=== PATIENT | female | born 1940 | race Caucasian/White ===

== ENCOUNTER 2023-04-21 13:29 | Inpatient (IN) | payer MEDICARE, SELFPAY ==
[2023-04-21 13:45] VITALS: BP 168/78; PULSE 89; RESP 18; TEMP 36.9; O2SAT 94
--- OUTSIDE RECORDS SUMMARY | 2023-04-21 13:45 | XMS RPT_ITS | CCD ---
Author Name Unknown Address [address] [place] [address] Organization [facility] Care Team Providers Care Import/Export Freight Forwarder Name Role Phone RADHA SANFORD PA-C Primary Care Physician [phone] VACCARIELLO, EASTON Consulting Unavailable CONOR TILLMAN MD Admitting Unavailable CONOR TILLMAN MD Attending Unavailable CONOR TILLMAN MD Primary Care Unavailable PROVIDER, UNKNOWN Consulting Unavailable PROVIDER, UNKNOWN Consulting Unavailable PROVIDER, UNKNOWN Consulting Unavailable SAMMIE ALLEN MD Primary Care Unavailable SAMMIE ALLEN MD Attending Unavailable RADHA SANFORD Consulting Unavailable SAMMIE ALLEN MD Admitting Unavailable RADHA SANFORD Referring Unavailable PROVIDER, UNKNOWN Consulting Unavailable VACCARIELLO, EASTON Referring Unavailable VACCARIELLO, EASTON Consulting Unavailable SAL CAVAZOS MD Admitting Unavailable SAL CAVAZOS MD Attending Unavailable SAL CAVAZOS MD Primary Care Unavailable PROVIDER, UNKNOWN Consulting Unavailable PROVIDER, UNKNOWN Consulting Unavailable PROVIDER, UNKNOWN Consulting Unavailable VACCARIELLO, EASTON Consulting Unavailable GURJIT YOUNG DO Admitting Unavailable GURJIT YOUNG DO Attending Unavailable GURJIT YOUNG DO Primary Care Unavailable PROVIDER, UNKNOWN Consulting Unavailable PROVIDER, UNKNOWN Consulting Unavailable PROVIDER, UNKNOWN Consulting Unavailable VACCARIELLO, EASTON Consulting Unavailable AARON ZAMAN MD Primary Care Unavailable AARON ZAMAN MD Attending Unavailable AARON ZAMAN MD Admitting Unavailable PROVIDER, UNKNOWN Consulting Unavailable PROVIDER, UNKNOWN Consulting Unavailable PROVIDER, UNKNOWN Consulting Unavailable CONOR TILLMAN MD Admitting Unavailable VACCARIELLO, EASTON Consulting Unavailable CONOR TILLMAN MD Attending Unavailable CONOR TILLMAN MD Primary Care Unavailable PROVIDER, UNKNOWN Consulting Unavailable PROVIDER, UNKNOWN Consulting Unavailable PROVIDER, UNKNOWN Consulting Unavailable CIARA COLLADO Attending Unavailable LARY GARCIA Admitting Unavailable SYSTEM, PROVIDER NOT IN Referring Unavaila ble CONSULT, SURGERY - ORTHOPAEDICS Consulting Unavailable AUSTYN WARD, DR AARON Avelar Attending [facility] PA-C, [facility] George WARD, DR AARON Avelar Attending [facility] veto [facility]C, [facility] veto FRYE SPIRITUAL MINISTER-LABOR RELATIONS WORKER, CORNELL Hurley Consulting Padmini AZMAN MD, DR AARON Avelar Admitting Parth Vazquez MD, DR AARON Avelar Attending [facility] veto SANFORD PA-C, [facility] le Allergies Allergy Classification Reported Allergen(s) Allergy Type Date of Onset Reaction(s) Facility (2 sources) Sulfamethoxazole; Translations: [sulfamethoxazole] Drug Allergy [facility] (1 source) Acetaminophen / HYDROcodone Drug Allergy [facility] (1 source) HYDROcodone Drug Allergy [facility] (1 source) Sulfonamides (Antibiotic) Drug allergy (disorder) [facility] Medications Current Medications Medication Drug Class(es) Dates Sig (Normalized) Sig (Original) acetaminophen 1000 mg oral tablet (1 source) Start: 04-04-2023 take 1 tablet by mouth once daily Tylenol Dose : 1,000 mg = 2 tab(s), Oral, TID, not to exceed 3000 mg/day, 0 Refill(s) Start Date: 04/04/23 Status: Ordered alendronic acid 70 mg oral tablet (2 sources) Bisphosphonate Start: 03-08-2023 alendronate 70 mg oral tablet Dose : 70 mg = 1 tab(s), Oral, qWeek, 0 Refill(s) Start Date: 03/08/23 Status: Ordered Calcium Plus Vitamin D3 (2 sources) Start: 03-08-2023 take 1 tablet by mouth once daily Calcium Plus Vitamin D3 1 TAB, Oral, qDay, 0 Refill(s) Start Date: 03/08/23 Status: Ordered docusate sodium 50 mg / sennosides, correction 8.6 mg oral tablet (1 source) Start: 04-04-2023 End: 04-07-2023 take 1 tablet by mouth twice daily Senokot S 50 mg-8.6 mg oral tablet Dose = 2 tab(s), Oral, BID, Take until first bowel movement, then as needed, X 3 day(s), # 12 tab(s), 0 Refill(s), Pharmacy: [facility]/pharmacy #[id number], 157.2, cm, 04/03/23 16:22:00 EST, Height, kg, 04/03/23 16:22:00 EST, Dosing Weight Start Date: 04/04/23 Stop Date: 04/07/23 Status: Ordered doxycycline monohydrate 100 mg oral capsule (1 source) Tetracycline-class Drug Start: 04-04-2023 End: 04-18-2023 doxycycline monohydrate 100 mg oral capsule Dose : 100 mg = 1 cap(s), Oral, q12h, X 14 day(s), # 28 cap(s), 0 Refill(s), 04/18/23 7:56:00 AM EST, Pharmacy: [facility]/pharmacy #[id number], 157.2, cm, 04/03/23 16:22:00 EST, Height, 68, kg, 04/03/23 16:22:00 EST, Dosing Weight Start Date: 04/04/23 Stop Date: 04/18/23 Status: Ordered Multivitamin preparation (2 sources) Start: 03-08-2023 take 1 tablet by mouth once daily Multivitamin Dose = 1 tab(s), Oral, Daily, 0 Refill(s) Start Date: 03/08/23 Status: Ordered rivaroxaban 10 mg oral tablet (1 source) Factor Xa Inhibitor Start: 04-04-2023 End: 04-16-2023 Xarelto 10 mg oral tablet Dose : 10 mg = 1 tab(s), Oral, qDay, Take for 2 weeks postoperatively for DVT prophylaxis, # 12 tab(s), 0 Refill(s), Pharmacy: [facility]/pharmacy #[id number], 157.2, cm, 04/03/23 16:22:00 EST, Height, 68, kg, 04/03/23 16:22:00 EST, Dosing Weight Start Date: 04/04/23 Stop Date: 04/16/23 Status: Ordered traMADol hydrochloride 50 mg oral tablet (1 source) Opioid Agonist Start: 04-04-2023 End: 04-11-2023 take 1 tablet by mouth every six hours as needed for pain traMADol 50 mg oral tablet See Instructions, PRN as needed for pain, 1 tab(s) Oral q6hr as needed for pain, # 12 tab(s), 0 Refill(s), 04/11/23 7:58:00 AM EST, Pharmacy: [facility]/pharmacy #[id number], Post-op pain, 157.2, cm, 04/03/23 16:22:00 EST, Height, 68, kg, 04/03/23 16:22:00 EST, Dosing Weight Start Date: 04/04/23 Stop Date: 04/11/23 Status: Ordered Problems Active Problems Problem Classification Problem Date Documented Date Episodic/Chronic Deficiency and other anemia (1 source) Anemia, unspecified; Translations: [Anemia, unspecified] Onset: 04-09-2023 Episodic Fracture of neck of femur (hip) (2 sources) Fracture of unspecified part of neck of right femur, initial encounter for closed fracture; Translations: [Fracture of unspecified part of neck of right femur, initial encounter for closed fracture] Onset: 04-12-2023 Episodic Osteoarthritis (1 source) Unilateral primary osteoarthritis, right knee; Translations: [Unilateral primary osteoarthritis, right knee] Onset: 04-09-2023 Chronic Osteoporosis (3 sources) Primary osteoporosis; Translations: [Age-related osteoporosis without current pathological fracture] Onset: 04-03-2023 Chronic Other nervous system disorders (1 source) Postoperative pain ; Translations: [Other acute postprocedural pain] Onset: 04-04-2023 Episodic Other non-traumatic joint disorders (2 sources) Pain in right hip; Translations: [Pain in right hip] Onset: 04-09-2023 Episodic Pathological fracture (1 source) Pathological fracture, right femur, initial encounter for fracture; Translations: [Pathological fracture, right femur, initial encounter for fracture] Onset: 04-09-2023 Episodic Residual codes; unclassified (1 source) Do not resuscitate; Translations: [Do not resuscitate] Onset: 04-09-2023 Episodic Past or Other Problems Problem Classification Problem Date Documented Date Episodic/Chronic Acute posthemorrhagic anemia (3 sources) Acute posthemorrhagic anemia; Translations: [Acute posthemorrhagic anemia] Onset: 06-13-2022 Episodic Malaise and fatigue (1 source) Weakness; Translations: [Weakness] Onset: 06-13-2022 Episodic Other connective tissue disease (1 source) Muscle weakness (generalized); Translations: [Muscle weakness (generalized)] Onset: 06-13-2022 Episodic Results Test Name Value Interpretation Reference Range Facil ity Vital Signs Date Time Vital Sign Value Performing Clinician Rayna nayak 04-04-2023 11:33-[address] AAORN ZAMAN MD [facility] 04-04-2023 11:33-[address] AARON Edward [facility] 04-04-2023 11:33-0500 Body temperature 97.52 [degF] DR AARON ZAMAN MD [facility] 04-04-2023 11:33-0500 Diastolic Blood Pressure Non-Invasive 76 mm[Hg] DR AARON ZAMAN MD [facility] 04-04-2023 11:33-0500 Heart rate 83 /min DR AARON ZAMAN MD [facility] 04-04-2023 11:33-0500 Reason For Taking VItal Signs DR AARON ZAMAN MD [facility] 04-04-2023 11:33-0500 Respiratory rate 16 /min DR AARON ZAMAN MD [facility] 04-04-2023 11:33-0500 Systolic Blood Pressure Non-Invasive 113 mm[Hg] DR AARON ZAMAN MD [facility] 04-04-2023 07:46-[address] AARON ZAMAN MD [facility] 04-04-2023 07:46-[address] AARON Edward [facility] 04-04-2023 07:46-0500 Body temperature 97.7 [degF] DR AARON ZAMAN MD [facility] 04-04-2023 07:46-0500 Diastolic Blood Pressure Non-Invasive 80 mm[Hg] DR AARON ZAMAN MD [facility] 04-04-2023 07:46-0500 Heart rate 78 /min DR AARON ZAMAN MD [facility] 04-04-2023 07:46-0500 Reason For Taking VItal Signs DR AARON ZAMAN MD [facility] 04-04-2023 07:46-0500 Respiratory rate 16 /min DR AARON ZAMAN MD [facility] 04-04-2023 07:46-0500 Systolic Blood Pressure Non-Invasive 142 mm[Hg] DR AARON ZAMAN MD [facility] 04-04-2023 04:42-0500 Body temperature 98.06 [degF] DR AARON ZAMAN MD [facility] 04-04-2023 04:42-0500 Diastolic Blood Pressure Non-Invasive 64 mm[Hg] DR AARON ZAMAN MD [facility] 04-04-2023 04:42-0500 Heart rate 71 /min DR AARON ZAMAN MD [facility] 04-04-2023 04:42-0500 Reason For Taking VItal Signs DR AARON ZAMAN MD [facility] 04-04-2023 04:42-0500 Respiratory rate 18 /min DR AARON ZAMAN MD [facility] 04-04-2023 04:42-0500 Systolic Blood Pressure Non-Invasive 140 mm[Hg] DR AARON ZAMAN MD [facility] 04-04-2023 00:18-0500 Heart rate 70 /min DR AARON ZAMAN MD [facility] 04-03-2023 20:30-0500 Heart rate 81 /min DR AARON ZAMAN MD [facility] 04-03-2023 16:23-0500 Heart rate 72 /min DR AARON ZAMAN MD [facility] 04-03-2023 16:22-0500 Body height 157.[address] AARON ZAMAN MD [facility] 04-03-2023 16:22-0500 Body weight [address] AARON ZAMAN MD [facility] 04-03-2023 16:22-0500 Body weight 27.52 kg/m2 DR AARON ZAMAN MD [facility] 04-03-2023 15:55-0500 Heart rate 86 /min DR AARON ZAMAN MD [facility] 04-03-2023 15:00-0500 Body temperature 97.7 [degF] DR AARON ZAMAN MD [facility] 04-03-2023 14:50-0500 Respiratory Rate - Anes 20 br/min DR AARON ZAMAN MD [facility] 04-03-2023 14:45-0500 Body temperature 96.8 [degF] DR AARON ZAMAN MD [facility] 04-03-2023 14:45-0500 Respiratory Rate - Anes 21 br/min DR AARON ZAMAN MD [facility] 04-03-2023 14:40-0500 Respiratory Rate - Anes 36 br/min DR AARON ZAMAN MD [facility] 04-03-2023 14:30-0500 Body temperature 96.8 [degF] DR AARON ZAMAN MD [facility] 04-03-2023 14:15-0500 Body temperature 96.8 [degF] DR AARON ZAMAN MD [facility] 04-03-2023 10:27-0500 Body temperature 98.24 [degF] DR AARON ZAMAN MD [facility] 04-03-2023 10:27-0500 Heart rate 98 /min DR AARON ZAMAN MD [facility] 04-03-2023 10:23-0500 Body height 157.[address] AARON ZAMAN MD [facility] 04-03-2023 10:23-0500 Body weight [address] AARON ZAMAN MD [facility] 04-03-2023 10:23-0500 Body weight 27.52 kg/m2 DR AARON ZAMAN MD [facility] 03-08-2023 11:06-0500 Body height 157.[address] AARON ZAMAN MD [facility] 03-08-2023 11:06-0500 Body weight 72.[address] AARON ZAMAN MD [facility] Encounters Encounter Date Encounter Type Care Provider Facility Start: 04-12-2023 Evaluation and manag ement of inpatient CIARA COLLADO Facility:[facility] Start: 04-09-2023 End: 04-12-2023 ambulatory SAMMIE WARD [facility] Start: 04-03-2023 End: 04-04-2023 Evaluation and management of inpatient CORNELL FRYE SPIRITUAL MINISTER-LABOR RELATIONS WORKER Facility:[facility] Start: 04-03-2023 End: 04-04-2023 Evaluation and management of inpatient DR AARON ZAMAN MD [facility] Start: 03-08-2023 End: 03-09-[address] AARON ZAMAN MD Facility:[facility] Start: 03-08-2023 End: 03-08-[address] AARON ZAMAN MD [facility] Start: 02-12-2023 ambulatory [facility] Start: 01-22-2023 End: 01-22-2023 ambulatory [facility] Start: 12-26-2022 End: 12-26-2022 ambulatory [facility] Start: 06-13-2022 End: 02-09-2023 ambulatory CONOR WARD [facility] Start: 06-04-2022 End: 06-08-2022 Evaluation and management of inpatient [facility] Procedures Date Procedure Procedure Detail Performing Clinician Start: 04-15-2023 Antibody screen CIARA COLLADO Immunizations Immunization Date Immunization Notes Care Provider Fa cili 03-22-2021 SARS-CoV-2 mRNA (tozinameran) vaccine DR AARON ZAMAN MD [facility] 03-01-2021 SARS-CoV-2 mRNA (tozinameran) vaccine DR AARON ZAMAN MD [facility] Payers Date Payer Category Payer Medicare [id number] 2021 Medicare [id number] 1940 Unknown [id number] [id number] [id number] 1940 Unknown [id number] 2.16.8 [id number] 1940 Unknown [id number] 2.16.8 [id number] 1940 Unknown [id number] 2.16.8 [id number] 1940 Unknown [id number] 2.16.8 [id number] 1940 Unknown [id number] 2.16.84 [id number] 1940 Unknown [id number] [id number]. [id number] 1940 Unknown [id number] 2.16.8 [id number] 1940 Unknown [id number] 2.16.8 [id number] 1940 Unknown [id number] 2.16.8 [id number] Unknown Social History Date Type Detail Facility Start: 03-08-2023 Tobacco smoking status Never s moked tobacco (finding) [facility] Sex Assigned At Female [facility] Functional Status Date Assessment Result Facility 04-04-2023 Functional Status Supervised 1 [facility] 04-04-2023 Functional Status bilateral knee high applied/on [facility] 04-04-2023 Functional Status Single level home [facility] 04-03-2023 Functional Status Foam dressing [facility] 04-03-2023 Functional Status [facility] 04-03-2023 Functional Status [facility] 04-03-2023 Functional Status [facility] 04-03-2023 Functional Status Maintained [facility] 03-08-2023 Functional Status Sensory Deficits None A [facility] Mental Status Date Assessment Result Facility 04-04-2023 Mental Status Oriented x 4 [facility] 04-03-2023 Mental Status [facility] 04-03-2023 Mental Status [facility] Clinical Notes 06-05-2022 to 04-10-2023 Note Date & Type Note Facility 04-10-2023 Note . MICRO - Microbiology PROCEDURE: Culture Tissue [*1] SOURCE: Tissue BODY SITE: Hip R COLLECTED DATE/TIME: 04/03/2023 14:00 EST RECEIVED DATE/TIME: 04/03/2023 18:47 EST START DATE/TIME: 04/03/2023 18:47 EST FREE TEXT SOURCE: 1. [employer] HIP FINAL REPORTS Final Report [] Verified Date/Time/Personnel: 04/10/2023 08:21 EST No aerobes or anaerobes isolated at 7 days. PRELIMINARY REPORTS Preliminary Report [] Verified Date/Time/Personnel: 04/04/2023 11:59 EST No growth to date STAINS GS [] Verified Date/Time/Personnel: 04/03/2023 19:22 EST 2+ Red Blood Cells 2+ White Blood Cells No organisms seen. Performing Locations *1: This test was performed at: [facility], [address] [place] [address], [facility] , [facility] ([place]) 04-06-2023 Note . MICRO - Microbiology PROCEDURE: Fungal Culture with Stain if Ind [*1] SOURCE: Tissue BODY SITE: COLLECTED DATE/TIME: 04/03/2023 14:00 EST RECEIVED DATE/TIME: 04/03/2023 18:47 EST START DATE/TIME: 04/03/2023 18:47 EST FREE TEXT SOURCE: 1. [employer] PRELIMINARY REPORTS Preliminary Report [] Verified Date/Time/Personnel: 04/06/2023 07:48 EST No fungus isolated to date. Final report to follow. STAINS FUNSM [] Verified Date/Time/Personnel: 04/04/2023 11:15 EST No fungal elements observed by calcofluor white stain. Performing Locations *1: This test was performed at: [address], [facility] , [facility] ([place]) 04-04-2023 Note . MICRO - Microbiology PROCEDURE: Acid Fast Bacilli Culture w Stain if Ind [*1] SOURCE: Tissue BODY SITE: Hip R COLLECTED DATE/TIME: 04/03/2023 14:00 EST RECEIVED DATE/TIME: 04/03/2023 18:47 EST START DATE/TIME: 04/03/2023 18:47 EST FREE TEXT SOURCE: 1. [employer] HIP STAINS AFS [] Verified Date/Time/Personnel: 04/04/2023 11:15 EST Acid Fast Smear from Concentrated Specimen: Negative Performing Locations *1: This test was performed at: [address], [facility] , [facility] ([place]) 04-04-2023 Note Discharge Instructions Thank you for allowing [facility] to assist you with your healthcare needs. The following is important discharge information regarding your hospital visit. Your Care Team MD Arthur Mckinney PA-C Lisa Kapper, ÁNGEL-LABOR RELATIONS WORKER Your Diagnosis Osteoporosis Post-op pain What to do next Follow Up Appointments Follow Up with ARTHUR HARDING PA-C, Orthopedic When 04/16/2023 03:30 PM EST Why: This is your post-op appointment. Follow-up as scheduled. Where: [facility] [address] [place] [id number]- Allergies sulfamethoxazole Medications Please ask your primary doctor or pharmacist before taking any other medication not listed, including over the counter drugs, herbal medications, vitamins and or supplements as they may interact with your home medications. What How Much When Why Instructions Last Dose New acetaminophen (Tylenol) 1,000 Milligram by mouth Three (3) times a day not to exceed 3000 mg/ day 04/04/23 12:10pm New docusate-senna (Senokot S 50 mg-8.6 mg oral tablet) 2 tab(s) by mouth Two (2) times a day Duration: 3 Days Take until first bowel movement, then as needed Pickup at [facility]/pharmacy #[id number] 04/03/23 10:36pm New doxycycline (doxycycline monohydrate 100 mg oral capsule) 1 cap by mouth Every 12 hours Duration: 14 Days Pickup at [facility]/pharmacy #[id number] 04/04/23 12:10pm New rivaroxaban (Xarelto 10 mg oral tablet) 1 tab(s) by mouth Once a day Duration: 12 Days Take for 2 weeks postoperatively for DVT prophylaxis Pickup at [facility]/pharmacy #[id number] 04/04/23 8:38am New traMADol (traMADol 50 mg oral tablet) See instructions Post-op pain 1 tab(s) Oral q6hr as needed for pain Pickup at [facility]/pharmacy #[id number] Unchanged alendronate (alendronate 70 mg oral tablet) 1 tab(s) by mouth Every week Unchanged calcium-vitamin D (Calcium Plus Vitamin D3) 1 TAB by mouth Once a day Unchanged multivitamin (Multivitamin) 1 tab(s) by mouth Every day Pharmacy Information [facility]/pharmacy #[id number]: [address], [place] [id number] [phone] Please take this list to your next doctor s visit. Bring all medications you take, including over the counter medications, herbals and other supplements with you to your doctor s visit. Patients and families are reminded to discard old lists and to update any records with all medication providers or retail pharmacies. Medication Leaflets doxycycline (oral/injection) (DOX i NINOSKA bynum) Acticlate, Adoxa, Alodox, Avidoxy, Doryx, Doryx MPC, Lymepak, Mondoxyne NL, Monodox, Morgidox, Morgidox 1x090sx, Morgidox 1u718tg, Okebo, Oracea, Targadox, Vibramycin, Vibramycin Monohydrate What is the most important information I should know about doxycycline? You should not take this medicine if you are allergic to any tetracycline antibiotic. Children younger than 8 years old should use doxycycline only in cases of severe or life-threatening conditions. This medicine can cause permanent yellowing or graying of the teeth in children Using doxycycline during could harm the unborn baby or cause permanent tooth discoloration later in the baby's life. What is doxycycline? Doxycycline is a tetracycline antibiotic that Doxycycline is used to treat many different bacterial infections, such as acne, urinary tract infections, intestinal infections, eye infections, gonorrhea, chlamydia, periodontitis (gum disease), and others. Doxycycline is also used to treat blemishes, bumps, and acne-like lesions caused by rosacea. Doxycycline will not treat facial redness caused by rosacea. Some forms of doxycycline are used to prevent malaria, to treat anthrax, or to treat infections caused by mites, ticks, or lice. Doxycycline may also be used for purposes not listed in this medication guide. What should I discuss with my healthcare provider before taking doxycycline? You should not take this medicine if you are allergic to doxycycline or other tetracycline antibiotics such as demeclocycline, minocycline, tetracycline, or tigecycline. Tell your doctor if you have ever had: liver disease; kidney disease; asthma or sulfite allergy; increased pressure inside your skull; or if you also take isotretinoin, seizure medicine, or a blood thinner such as warfarin (Coumadin). If you are using doxycycline to treat gonorrhea, your doctor may test you to make sure you do not also have syphilis, another sexually transmitted disease. Taking this medicine during may affect tooth and bone development in the unborn baby. Taking doxycycline during the last half of can cause permanent tooth discoloration later in the baby's life. Tell your doctor if you are or if you become . Doxycycline can make control pills less effective. Ask your doctor about using a non-hormonal control (condom, diaphragm with spermicide) to prevent . Doxycycline can pass into breast milk and may affect bone and tooth development in a nursing . Do not breastfeed while you are taking doxycycline. Doxycycline can cause permanent yellowing or graying of the teeth in children younger than 8 years old. Children should use doxycycline only in cases of severe or life-threatening conditions such as anthrax or [place] spotted fever. The benefit of treating a serious condition may outweigh any risks to the child's tooth development. How should I take doxycycline? Follow all directions on your prescription label and read all medication guides or instruction sheets. Use the medicine exactly as directed. Take doxycycline with a full glass of water. Drink plenty of liquids while you are taking doxycycline. Read and carefully follow any Instructions for Use provided with your medicine. Ask your doctor or pharmacist if you do not understand these instructions. Most brands of doxycyline may be taken with food or milk if the medicine upsets your stomach. Different brands of doxycycline may have different instructions about taking them with or without food. Take Oracea on an empty stomach, at least 1 hour before or 2 hours after a meal. You may need to split a doxycycline tablet to get the correct dose. Follow your doctor's instructions. Swallow a delayed-release capsule or tablet whole. Do not crush, chew, break, or open it. Measure liquid medicine with the dosing syringe provided, or with a special dose-measuring spoon or medicine cup. If you do not have a dose-measuring device, ask your pharmacist for one. If you take doxycycline to prevent malaria: Start taking the medicine 1 or 2 days before entering an area where malaria is common. Continue taking the medicine every day during your stay and for at least 4 weeks after you leave the area. Doxycycline is usually given by injection only if you are unable to take the medicine by mouth. A healthcare provider will give you this injection as an infusion into a vein. Use this medicine for the full prescribed length of time, even if your symptoms quickly improve. Skipping doses can increase your risk of infection that is resistant to medication. Doxycycline will not treat a viral infection such as the flu or a common cold. Store at room temperature away from moisture, heat, and light. Throw away any unused medicine after the expiration date on the label has passed. Using doxycycline can cause damage to your kidneys. What happens if I miss a dose? Take the medicine as soon as you can, but skip the missed dose if it is almost time for your next dose. Do not take two doses at one time. What happens if I overdose? Seek emergency medical attention or call the Poison Help line at . What should I avoid while taking doxycycline? Do not take iron supplements, multivitamins, calcium supplements, antacids, or laxatives within 2 hours before or after taking doxycycline. Avoid taking any other antibiotics with doxycycline unless your doctor has told you to. Doxycycline could make you sunburn more easily. Avoid sunlight or tanning beds. Wear protective clothing and use sunscreen (SPF 30 or higher) when you are outdoors. Antibiotic medicines can cause diarrhea, which may be a sign of a new infection. If you have diarrhea that is watery or bloody, call your doctor. Do not use anti-diarrhea medicine unless your doctor tells you to. What are the possible side effects of doxycycline? Get emergency medical help if you have signs of an allergic reaction (hives, difficult breathing, swelling in your face or throat) or a severe skin reaction (fever, sore throat, burning in your eyes, skin pain, red or purple skin rash that spreads and causes blistering and peeling). Seek medical treatment if you have a serious drug reaction that can affect many parts of your body. Symptoms may include: skin rash, fever, swollen glands, flu-like symptoms, muscle aches, severe weakness, unusual bruising, or yellowing of your skin or eyes. This reaction may occur several weeks after you began using doxycycline. Call your doctor at once if you have: severe stomach pain, diarrhea that is watery or bloody; throat irritation, trouble swallowing; chest pain, irregular heart rhythm, feeling short of breath; little or no urination; low white blood cell counts--fever, chills, swollen glands, body aches, weakness, pale skin, easy bruising or bleeding; increased pressure inside the skull--severe headaches, ringing in your ears, dizziness, nausea, vision problems, pain behind your eyes; or signs of liver or pancreas problems--loss of appetite, upper stomach pain (that may spread to your back), tiredness, nausea or vomiting, fast heart rate, dark urine, jaundice (yellowing of the skin or eyes). Common side effects may include: nausea, vomiting, upset stomach, loss of appetite; mild diarrhea; skin rash or itching; darkened skin color; or vaginal itching or discharge. This is not a complete list of side effects and others may occur. Call your doctor for medical advice about side effects. You may report side effects to FDA at 4-396-ION-0348. What other drugs will affect doxycycline? Sometimes it is not safe to use certain medications at the same time. Some drugs can affect your blood levels of other drugs you take, which may increase side effects or make the medications less effective. Other drugs may affect doxycycline, including prescription and jdoy-ddp-yxorjst medicines, vitamins, and herbal products. Tell your doctor about all your current medicines and any medicine you start or stop using. Where can I get more information? Your pharmacist can provide more information about doxycycline. Remember, keep this and all other medicines out of the reach of children, never share your medicines with others, and use this medication only for the indication prescribed. Every effort has been made to ensure that the information provided by [employer]. [employer]') is accurate, up-to-date, and complete, but no guarantee is made to that effect. Drug information contained herein may be time sensitive. [employer] information has been compiled for use by healthcare practitioners and consumers in the [place] and therefore [employer] does not warrant that uses outside of the [place] are appropriate, unless specifically indicated otherwise. [employer] drug information does not endorse drugs, diagnose patients or recommend therapy. [employer] drug information is an informational resource designed to assist licensed healthcare practitioners in caring for their patients and/or to serve consumers viewing this service as a supplement to, and not a substitute for, the expertise, skill, knowledge and judgment of healthcare practitioners. The absence of a warning for a given drug or drug combination in no way should be construed to indicate that the drug or drug combination is safe, effective or appropriate for any given patient. [employer] does not assume any responsibility for any aspect of healthcare administered with the aid of information [employer] provides. The information contained herein is not intended to cover all possible uses, directions, precautions, warnings, drug interactions, allergic reactions, or adverse effects. If you have questions about the drugs you are taking, check with your doctor, nurse or pharmacist. Copyright 8603-1159 [employer]. Version: 25.. Revision Date: 01/03/2023. rivaroxaban (ONELIA a CASEY a ban) Xarelto, Xarelto Starter Pack What is the most important information I should know about rivaroxaban? Do not stop taking rivaroxaban without your doctor's advice. Stopping it suddenly can increase your risk of blood clots or stroke. Some drugs can increase your risk of bleeding when used with rivaroxaban. Tell your doctor about all other medicines you use. Call your doctor at once if you or your child have signs of bleeding such as: headaches, feeling very weak or dizzy, bleeding gums, nosebleeds, heavy menstrual periods or abnormal vaginal bleeding, blood in your urine, bloody or tarry stools, coughing up blood, vomit that looks like coffee grounds or any bleeding that will not stop. Rivaroxaban can cause a very serious blood clot around your spinal cord if you undergo a spinal tap or receive spinal anesthesia (epidural). Tell any doctor who treats you that you are taking rivaroxaban. What is rivaroxaban? Rivaroxaban is used to treat or prevent blood clots (venous thromboembolism, or VTE). Blood clots can occur in the legs (deep vein thrombosis, DVT) or the lungs (pulmonary embolism, PE). Rivaroxaban is sometimes used to lower your risk of a blood clot coming back after you have received treatment for blood clots for at least 6 months in adults, and at least 5 days in children from to less than 18 years of age. Rivaroxaban is also given together with aspirin to lower the risk of stroke, heart attack, or other serious heart and blood circulation problems in adults with coronary artery disease (clogged arteries) or peripheral artery disease (reduced blood flow to the legs), including adults who recently had a procedure to improve blood flow to the legs. Rivaroxaban can also be used to prevent blood clots in adults that are not able to move as normal during and after a hospital stay or after a hip or knee replacement surgery. Rivaroxaban can be used to prevent blood clots in children 2 years and older that have undergone surgery for a heart disease present at . Rivaroxaban is also used to lower the risk of stroke and blood clots in adults with atrial fibrillation (a heart rhythm disorder). Rivaroxaban may also be used for purposes not listed in this medication guide. What should I discuss with my healthcare provider before taking rivaroxaban? You should not use rivaroxaban if you are allergic to it, or if you have active or uncontrolled bleeding. Rivaroxaban can make it easier for you to bleed, even from a minor injury. Call your doctor if you have bleeding that will not stop. Rivaroxaban can cause a serious blood clot if you undergo a procedure such as a spinal tap or receive spinal anesthesia (epidural). This type of blood clot could cause permanent or long-term paralysis. Tell your doctor if you have or ever had: a history of problems with your spine or a spinal surgery; a history of difficult or repeated spinal taps; a thin tube (catheter) placed in your back to give you certain medicine; bleeding problems; an artificial heart valve; antiphospholipid syndrome, an immune system disorder that increases the risk of blood clots; taken NSAIDs (nonsteroidal anti-inflammatory drugs)--aspirin, ibuprofen (Advil, Motrin), naproxen (Aleve), and other medicines that prevent blood from clotting; or liver or kidney disease. Taking rivaroxaban during may cause bleeding in the mother or the unborn baby. Tell your doctor if you are or plan to become . It may not be safe to breastfeed a baby while you are using this medicine. Ask your doctor about the risks. How should I take rivaroxaban? Follow all directions on your prescription label and read all medication guides or instruction sheets. Your doctor may occasionally change your dose. Use the medicine exactly as directed. Do not change your dose or stop taking this medication without your doctor's advice. Stopping suddenly can increase your risk of blood clots or stroke. Tell any doctor who treats you that you are using rivaroxaban. If you need surgery or dental work, tell the surgeon or dentist ahead of time that you are using this medication. If you need anesthesia for a medical procedure or surgery, you may need to stop using rivaroxaban for a short time. For some conditions, rivaroxaban should be taken with food. Whether you take the medicine with or without food may also depend on the tablet strength you take. Follow your doctor's dosing instructions very carefully. If you cannot swallow a rivaroxaban tablet whole, crush it and mix the medicine with a small amount of applesauce. Swallow the mixture right away without chewing. If you are taking the 15 mg or 20 mg tablet, the dose should be immediately followed by food. Follow your healthcare provider's instructions about giving rivaroxaban through a feeding tube if needed. Doses are based on weight in children and teenagers. Your child's dose may change if the child gains or loses weight. If your child is taking the tablet, make sure it is swallowed whole. Rivaroxaban should not be split to provide a smaller dose. Talk to your doctor about switching to the oral suspension (liquid). If your child vomits within 30 minutes of taking the oral suspension (liquid), give a new full dose. If your child vomits more than 30 minutes after taking the oral suspension (liquid), do not give another dose. Give the next dose as scheduled. Shake the oral suspension (liquid). Measure a dose with the supplied measuring device (not a kitchen spoon). Store at room temperature away from moisture and heat. Do not freeze the oral suspension (liquid). What happens if I miss a dose? If you take rivaroxaban 1 time each day: Take the medicine as soon as you remember, and then go back to your regular schedule. Do not take two doses in the same day. If you take the 15-milligram tablet 2 times each day: Take the missed dose on the same day you remember it. You may take the missed morning dose with the evening dose. Take your next dose at the regular time and stay on your two times a day schedule. If you take the 2.5-milligram tablet 2 times each day: Skip the missed dose and take your next dose at the regular time. Do not use two doses at one time. If your child takes rivaroxaban 2 times each day: give the missed morning dose as soon as you remember. You may give the missed morning dose with the evening dose. If you miss an evening dose, skip the missed dose and then go back to the regular schedule. If your child takes rivaroxaban 3 times each day: skip the missed dose and give the next dose at the regular time. Do not give two doses at one time. Get your prescription refilled before you run out of medicine completely. What happens if I overdose? Seek emergency medical attention or call the Poison Help line at . An overdose may cause excessive bleeding. What should I avoid while taking rivaroxaban? Avoid activities that may increase your risk of bleeding or injury. Use extra care while shaving or brushing your teeth. What are the possible side effects of rivaroxaban? Get emergency medical help if you have signs of an allergic reaction: hives; difficult breathing; swelling of your face, lips, tongue, or throat. Also seek emergency medical attention if you have symptoms of a spinal blood clot: back pain, numbness, tingling, muscle weakness in your lower body, or loss of bladder or bowel control. Rivaroxaban can cause you to bleed more easily. Call your doctor at once if you have signs of bleeding such as: bruising or bleeding that will not stop (nosebleeds, bleeding gums, heavy menstrual bleeding); pain, swelling, new drainage, or excessive bleeding from a wound; headaches, dizziness, weakness, feeling like you might pass out; urine that looks red, pink, or brown; or bloody or tarry stools, coughing up blood or vomit that looks like coffee grounds. Common side effects may include: bleeding; vomiting; cough; or stomach or gut inflammation. This is not a complete list of side effects and others may occur. Call your doctor for medical advice about side effects. You may report side effects to FDA at 4-466-KVE-6459. What other drugs will affect rivaroxaban? Sometimes it is not safe to use certain medicines at the same time. Some drugs can affect your blood levels of other drugs you use, which may increase side effects or make the medicines less effective. Tell your doctor about all your current medicines. Many drugs can affect rivaroxaban, especially: ketoconazole; ritonavir; erythromycin, rifampin; carbamazepine, phenytoin; Nikolai's wort; medicine used to prevent blood clots--enoxaparin, warfarin, alteplase, clopidogrel, dipyridamole, ticlopidine, and others; or NSAIDs (nonsteroidal anti-inflammatory drugs)--aspirin, ibuprofen (Advil, Motrin), naproxen (Aleve), celecoxib, diclofenac, indomethacin, meloxicam, and others. This list is not complete and many other drugs may affect rivaroxaban. This includes prescription and ylxl-boq-zpgkewr medicines, vitamins, and herbal products. Not all possible drug interactions are listed here. Where can I get more information? Your doctor or pharmacist can provide more information about rivaroxaban. Remember, keep this and all other medicines out of the reach of children, never share your medicines with others, and use this medication only for the indication prescribed. Every effort has been made to ensure that the information provided by [employer]. [employer]') is accurate, up-to-date, and complete, but no guarantee is made to that effect. Drug information contained herein may be time sensitive. [employer] information has been compiled for use by healthcare practitioners and consumers in the [place] and therefore [employer] does not warrant that uses outside of the [place] are appropriate, unless specifically indicated otherwise. [employer]'s drug information does not endorse drugs, diagnose patients or recommend therapy. [employer] drug information is an informational resource designed to assist licensed healthcare practitioners in caring for their patients and/or to serve consumers viewing this service as a supplement to, and not a substitute for, the expertise, skill, knowledge and judgment of healthcare practitioners. The absence of a warning for a given drug or drug combination in no way should be construed to indicate that the drug or drug combination is safe, effective or appropriate for any given patient. [facility] does not assume any responsibility for any aspect of healthcare administered with the aid of information [facility] provides. The information contained herein is not intended to cover all possible uses, directions, precautions, warnings, drug interactions, allergic reactions, or adverse effects. If you have questions about the drugs you are taking, check with your doctor, nurse or pharmacist. Copyright 6861-3352 [employer]. Version: 10.. Revision Date: 08/04/2022. Education Materials [facility] Post-operative Instructions PLEASE FOLLOW [facility] POST-OP INSTRUCTIONS GIVEN WATCH FOR SIGNS OF INFECTION: call the office ([phone]) if experencing any of the following: (Usually appears 36-48 hours after surgery) Increased temperature (101 degrees Fahrenheit or higher) Redness or swelling Increased uncontrolled pain Foul odor or drainage Calf discomfort Significant swelling Or if having any chest pain, shortness of breath, or difficulty breathing or swallowing call the office or go the nearest Emergency Room. If you have any questions, please call your doctor at the number listed on your follow up instructions. Form: 338A (84053) R: 09/03 Additional Information VACCINATE! IT SAVES LIVES! Members of the community who have not yet received the COVID-19 vaccine and would like to receive it can visit one of [facility] vaccine clinics. There are many vaccine clinic locations within the [facility]. For locations and available times, please visit [email or web address] hio.[email or web address] It is important to note that some COVID mobile vaccine clinics are held outdoors and may be canceled in rainy or stormy conditions. To learn more about pediatric vaccinations (ages 5-11), we invite you to visit the [facility] webpage. [email or web address] [email or web address] To learn more about the COVID-19 vaccine, we invite you to visit the CDC website for a list of frequently asked questions.https://www.cdc.gov/co ronavirus/2019-ncov/vaccines/faq .html [facility] Patient Portal Access Instructions: Stay connected with your healthcare team and access your personal medical information anytime with the [facility] Patient Portal. Please follow the directions below to create your [employer] account: 1.Access the email account you provided upon registration to the hospital/physician office.2.Look for an invitation email from [facility].3.Open the email and access the invitation link: Accept Invitation to [facility].4.Fill in the required kim to create your account. To access your account, visit [employer]bill[employer]. Click the blue button labeled Access Patient Portal and then log in with the username and password that you created in the steps above. You will be able to view your test results, lab results, a summary of your visits, upcoming appointments and more. There is also a convenient messaging option where you can send secure messages to your provider. In addition, you will have the ability to download any documents or summaries to your computer and/or send the information securely to a physician. Remember that your healthcare information is confidential, so carefully consider who you will allow to register on the [facility] Patient Portal for access to your information. You can also access the [facility] Patient Portal on the [facility]li. Simply click on Patient Portal and then log into your account. If you would like to receive a full copy of your medical records, please contact the [facility] Medical Records Department by calling [phone], Sunday through Sunday between 8 a.m. and 4:30 p.m. HOW TO SAFELY DISPOSE OF PRESCRIPTION MEDICATIONS Please use one of the following methods to safely dispose of your unused medications. 1.Use a drug disposal kit: the drug disposal pouch allows you to safely discard your old and unused drugs. Ask your nurse to give you one when you are discharged.2.Visit a local take-back location: Many local pharmacies and police departments have programs that collect old and unwanted prescription drugs. Call your local pharmacy or go to http://[employer].Sentisis/4N6Ya1p to find one close to you.3.Make use of household items: Use cat litter or old coffee grounds to dispose medications if other options are not available. Mix your drugs with these household products, seal them in an airtight container and throw it into the garbage. Call [facility]: [phone] to be sure your drugs can be disposed of in this way. Some medicines may require a different approach.4.Never flush your medications down the toilet. IF YOU HAVE BEEN PRESCRIBED AN OPIOID FOR PAIN If you have been prescribed an opioid (such as hydrocodone, oxycodone or morphine), it is critical to understand the possible side effects and risks of opioid pain medications. Even when taken as directed, opioids can have several side effects including: Tolerance, meaning you might need to take more of a medication for the same pain relief. Nausea, vomiting and/or constipation. Sleepiness, dizziness, dry mouth, confusion, depression or itching. Physical dependence, meaning you have withdrawal symptoms when a medication is stopped, can develop within a few days. KNOW YOUR RESPONSIBILITIES It is important to know exactly how much and how often to take the opioid pain medications you are prescribed. Never take opioids in higher amounts or more often than prescribed. Do not combine opioids with alcohol or other drugs that cause drowsiness, such as benzodiazepines, also known as benzos, including diazepam and alprazolam, muscle relaxants or sleep aids. Never sell or share prescription opioids. This is illegal. Store opioids in a secure place and out of reach of others (including children, family, friends and visitors). The last page of this document has been signed and retained as a CHART COPY. Signatures Patient Education Materials - [facility] 11/2016 (22528) Medication Leaflets doxycycline (oral/injection), rivaroxaban My discharge plan and instructions have been reviewed and explained to me and IJAYCE VIRGINIA M understand my current condition and have read and understand these discharge instructions. I have received a written copy of the plan/instructions. If I have questions, I am aware that I should contact my doctor. Patient/Nursing Assoc Signature: Date/Time: Relationship to Patient: Witness Name/Signature: Date/Time: [facility] 04-04-2023 Note Date of Service 04/04/2023 Chief Complaint right hip pain Subjective Patient seen and evaluated this morning while resting in bed. She states that she is doing well this morning and has no complaints. Patient states that she is having no pain with resting in bed and, when up, it is not bad. She has been able to empty her bladder without any difficulty. She is tolerating a regular diet without any nausea. She further denies any fever, chills, cough, shortness of breath, chest pain, abdominal pain, nausea or dysuria. Labs and vital signs reviewed and were within normal limits. Physical exam unremarkable. From hospitalist perspective, patient is medically optimized for discharge home. Will defer to primary team for finally decision to discharge. All questions answered. Objective Vitals and Measurements T: 36.5 C (Oral) TMIN: 36 C TMAX: 36.9 C (Oral) HR: 78 RR: 16 BP: 142/80 SpO2: 92% HT: 157.2 cm WT: 68 kg BMI: 27.52 Intake and Output 7AM Yesterday to 7AM Today Intake and Output (Last 24 hours) Intake Administration Information 1038.17 Supplement Intake 100.00 Output Urine Voided 2.00 Intra-Op EBL 150.00 Total Summary Total Intake 1138.17 Total Output 152.00 Fluid Balance 986.17 Physical Exam General: No acute distress. Patient is alert and appropriate. Skin: No rash. Skin is warm, dry. HEENT: Head is normocephalic, atraumatic. Pupils are equal, round and reactive. Neck: Supple. No lymphadenopathy, thyromegaly. Lungs: Bilaterally clear but diminished without crepitation or wheeze. Unlabored. Heart: Heart is regular rhythm, S1, S2. No murmurs, gallops or rubs. Abdomen: Abdomen is soft, nontender. Bowels sounds present in all quadrants. Extremities: No clubbing, cyanosis, or edema. Peripheral pulses palpable. No calf tenderness. Right hip surgical dressing is dry and intact. Neurological: Patient is awake and alert to person, place and time. Following simple commands, moving all extremities. Weight Dosing Weight: 68 kg (04/03/23) Dosing Weight: 68 kg (04/03/23) Medications Medications (25) Active Scheduled: (12) acetaminophen 500 mg Tablet 1,000 mg 2 tab(s), Oral, q8h calcium-vitamin D 500 mg-200 units tablet 1 TAB, Oral, qDay dexamethasone 10 mg/mL (1mL) SDV 10 mg 1 mL, IV Push, AsDirected docusate sodium 100 mg Capsule 100 mg 1 cap(s), Oral, BID docusate-senna (Senokot S) 50 mg-8.6 mg Tablet 2 tab(s), Oral, BID doxycycline hyclate 100 mg Capsule 100 mg 1 cap(s), Oral, q12h famotidine 20 mg tablet 20 mg 1 tab(s), Oral, qDay magnesium hydroxide 8% Suspension 30 mL UD 30 mL, Oral, Daily multivitamin (Myadec) with minerals Therapeutic Multiple Vitamins with Minerals Tablet 1 tab(s), Oral, qDayM rivaroxaban 10 mg tablet 10 mg 1 tab(s), Oral, qDay tranexamic acid PMX 1 gram(s) 100 mL, IV Piggyback, AsDirected tranexamic acid PMX 1 gram(s) 100 mL, IV Piggyback, AsDirected Continuous: (1) Lactated Ringers 1,000 mL 1,000 mL, Intravenous, 20 mL/hr PRN: (12) acetaminophen 325 mg Tablet 650 mg 2 tab(s), Oral, q4h albuterol 0.083% Soln UD (2.5mg/3 mL) 2.5 mg 3 mL, Inhalation, Once diphenhydramine 25 mg tablet 25 mg 1 tab(s), Oral, q6h diphenhyDRAMINE 50 mg/mL (1 mL) INJ 25 mg 0.5 mL, IV Push, q6h ketorolac 30 mg/mL (1 mL) vial 15 mg 0.5 mL, IV Push, q6h morphine 2 mg/mL 1 mL syringe 2 mg 1 mL, IV Push, q1h morphine 2 mg/mL 1 mL syringe 2 mg 1 mL, IV Push, q5min ondansetron 2 mg/ 1 mL 2 mL INJ 4 mg 2 mL, IV Push, q8h ondansetron 2 mg/ 1 mL 2 mL INJ 4 mg 2 mL, IV Push, AsDirected prochlorperazine 10 mg/2 mL vial 5 mg 1 mL, IV Push, q6h sodium biphosphate-sodium phosphate 19 gm-7 gm Enema 133 mL, Rectal, qDay tramadol 50 mg Tablet 50 mg 1 tab(s), Oral, q6hr Lab Results 04/04 05:22 WBC: 7.5 Hgb: 12.3 Hct: 37.0 Platelet: 224 Neutrophil %: 84.9 H Glucose Level: 100 Sodium Level: 141 Potassium Level: 4.2 BUN: 12 Creatinine Lvl (s): 0.80 Imaging Results and Diagnostics XR Hip Right w/Pelvis 4 Views Result Date: April 03, 2023 Verified By: IMELDA JEFFERSON MD CLINICAL STATEMENT: IMPRESSION: Radiolucent tracts in head and neck of right femur corresponding to recent removal of intramedullary prosthesis. Partially visualized displaced fracture of distal shaft of femur with metallic plate and screw fixation. Postoperative soft tissue changes. I have personally reviewed the images of this examination and agree with the resident's findings and interpretation. EKG Electrocardiogram [AOH] (EKG [AOH]) - InProcess -- 04/03/23 15:14:00 EST Assessment/Plan 1. Osteoporosis Chronic, s/p removal of right cephalomedullary nail yesterday. POD # 1. Management per primary team. Continue PO pain medication and antiemetics. Consult placed to PT and OT - following. Patient seen and evaluated this morning while resting in bed. Physical exam was unremarkable. Lab results and vital signs trends reviewed and were stable. From hospitalist perspective, patient is medically optimized for discharge home today. Hospitalist service will sign-off at this time. Please feel free to re-consult service if there are any changes in condition. Thank you for including hospitalist service in the care of your patient! DVT prophylaxis with Xarelto. Code status: Full Code. Labs, diagnostic test and progress notes reviewed as noted in HPI. Plan of care discussed with patient. All questions answered. Patient verbalizes understanding and is agreeable with plan of care. This case was discussed with collaborating physician, Dr. Hiram Medrano. Time Spent 35 minutes spent reviewing past diagnostic tests, reviewing lab results, vital sign trends, medical history, reviewing medications and ordering home medications, examining patient, collaborating with physician, and documenting in chart. Digitally Signed by CORNELL FRYE on 04/04/2023 11:55 AM [facility] 04-04-2023 Hospital Discharg e instructions Patient Education 04/04/2023 07:55:53 5 - [facility] Post-op Instruction 11/2016 ([id number]) [facility] Post-operative Instructions PLEASE FOLLOW [facility] POST-OP INSTRUCTIONS GIVEN WATCH FOR SIGNS OF INFECTION: call the office ([phone]) if experencing any of the following: (Usually appears 36-48 hours after surgery) Increased temperature (101 degrees Fahrenheit or higher) Redness or swelling Increased uncontrolled pain Foul odor or drainage Calf discomfort Significant swelling Or if having any chest pain, shortness of breath, or difficulty breathing or swallowing call the office or go the nearest Emergency Room. If you have any questions, please call your doctor at the number listed on your follow up instructions. Form: 338A ([id number]) R: 09/03 Follow Up Care 01/30/2023 09:06:04 With:ARTHUR HARDING PA-C, Orthopedic Address: [facility] [address] [place] [id number] When:04/16/2023 15:30:00 Comments:This is your post-op appointment. Follow-up as scheduled. [facility] 04-04-2023 Note Date of Service April 04, 2023 Subjective The patient was sitting in bed upon examination. Patient denies any chest pain, shortness of breath, dizziness, lightheadedness, nausea or vomiting, or calf pain. No adverse overnight events. Pain has been controlled on medications. Patient states she has only been taking Tylenol. She also tells me this morning that she does not like to take oxycodone as it makes her crazy . There is no listed allergy to oxycodone in the hospital chart and at our office we have listed allergy to hydrocodone. I am going to switch her medication over to tramadol as needed for breakthrough pain. Patient has had previous open reduction internal fixation of her right hip secondary to an intertrochanteric fracture by Dr. Dejesus on August 20, 2021. Patient had a another fall with an open reduction internal fixation of a right distal femur spiral fracture with Dr. Young on June 05, 2022. 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 Patient is planned for a distal third knee replacement by Dr. Aaron Zaman in May 2023. Upon discussion with the patient this morning she did become frustrated as we were talking about postoperative medications. She was overwhelmed and I did explain to the patient that I can reach out to her daughter who has been providing care at home. I did attempt initially to call her daughter but was not able to reach anyone. Objective Vitals and Measurements T: 36.7 C (Oral) TMIN: 36 C TMAX: 36.9 C (Oral) HR: 71(Apical) RR: 18 BP: 140/64 SpO2: 93% HT: 157.2 cm WT: 68 kg BMI: 27.52 Intake and Output 7AM Yesterday to 7AM Today Intake and Output (Last 24 hours) Intake Administration Information 1038.17 Supplement Intake 100.00 Output Urine Voided 2.00 Intra-Op EBL 150.00 Total Summary Total Intake 1138.17 Total Output 152.00 Fluid Balance 986.17 Physical Exam Vital signs stable, afebrile Right hip is soft and supple SCDs and SRIKANTH hose are in place bilaterally Patient is able to plantarflex and dorsiflex actively Sensation is intact to saphenous, sural, superficial and deep peroneal, and tibial distribution Dressing is clean dry and intact Negative signs and symptoms of DVT, negative Homans bilaterally Weight Dosing Weight: 68 kg (04/03/23) Dosing Weight: 68 kg (04/03/23) Medications Medications (29) Active Scheduled: (15) acetaminophen 500 mg Tablet 1,000 mg 2 tab(s), Oral, q8h bisacodyl 5 mg EC tablet 10 mg 2 tab(s), Oral, Once calcium-vitamin D 500 mg-200 units tablet 1 TAB, Oral, qDay dexamethasone 10 mg/mL (1mL) SDV 10 mg 1 mL, IV Push, AsDirected docusate sodium 100 mg Capsule 100 mg 1 cap(s), Oral, BID docusate-senna (Senokot S) 50 mg-8.6 mg Tablet 2 tab(s), Oral, BID doxycycline hyclate 100 mg Capsule 100 mg 1 cap(s), Oral, q12h famotidine 20 mg tablet 20 mg 1 tab(s), Oral, qDay magnesium hydroxide 8% Suspension 30 mL UD 30 mL, Oral, Daily meloxicam 7.5 mg tablet 7.5 mg 1 tab(s), Oral, BIDM multivitamin (Myadec) with minerals Therapeutic Multiple Vitamins with Minerals Tablet 1 tab(s), Oral, qDayM ondansetron 2 mg/ 1 mL 2 mL INJ 4 mg 2 mL, IV Push, q8h rivaroxaban 10 mg tablet 10 mg 1 tab(s), Oral, qDay tranexamic acid PMX 1 gram(s) 100 mL, IV Piggyback, AsDirected tranexamic acid PMX 1 gram(s) 100 mL, IV Piggyback, AsDirected Continuous: (1) Lactated Ringers 1,000 mL 1,000 mL, Intravenous, 20 mL/hr PRN: (13) acetaminophen 325 mg Tablet 650 mg 2 tab(s), Oral, q4h albuterol 0.083% Soln UD (2.5mg/3 mL) 2.5 mg 3 mL, Inhalation, Once diphenhydramine 25 mg tablet 25 mg 1 tab(s), Oral, q6h diphenhyDRAMINE 50 mg/mL (1 mL) INJ 25 mg 0.5 mL, IV Push, q6h ketorolac 30 mg/mL (1 mL) vial 15 mg 0.5 mL, IV Push, q6h morphine 2 mg/mL 1 mL syringe 2 mg 1 mL, IV Push, q1h morphine 2 mg/mL 1 mL syringe 2 mg 1 mL, IV Push, q5min ondansetron 2 mg/ 1 mL 2 mL INJ 4 mg 2 mL, IV Push, q8h ondansetron 2 mg/ 1 mL 2 mL INJ 4 mg 2 mL, IV Push, AsDirected oxycodone 5 mg tablet (immediate release) 5 mg 1 tab(s), Oral, q4h oxycodone 5 mg tablet (immediate release) 10 mg 2 tab(s), Oral, q4h prochlorperazine 10 mg/2 mL vial 5 mg 1 mL, IV Push, q6h sodium biphosphate-sodium phosphate 19 gm-7 gm Enema 133 mL, Rectal, qDay Lab Results 04/04 05:22 WBC: 7.5 Hgb: 12.3 Hct: 37.0 Platelet: 224 Neutrophil %: 84.9 H Glucose Level: 100 Sodium Level: 141 Potassium Level: 4.2 BUN: 12 Creatinine Lvl (s): 0.80 EKG Electrocardiogram [AOH] (EKG [AOH]) - InProcess -- 04/03/23 15:14:00 EST Assessment/Plan Osteoporosis Orders: traMADol, Start: 04/04/23 7:51:00 EST, Dose = 50 mg, = 1 tab(s), Oral, q6hr, PRN, as needed for pain, 04/04/23 7:51:00 EST 1. Status post right hip removal intramedullary nail with bone grafting large bony defect postop day #1 2. Continue pain medications: Tylenol and oxycodone. I did discontinue the oxycodone and will place her on tramadol for breakthrough pain. Currently she is only been using the Tylenol. I tried to discuss this in detail with her but patient was becoming overwhelmed. She states that oxycodone makes her go crazy . She also has listed allergy to hydrocodone and [facility] chart. Discontinued meloxicam as patient has history of ulcers. 3. DVT prophylaxis: Patient will continue with Xarelto for 2 weeks postoperatively for DVT prophylaxis as she is currently nonweightbearing and higher risk. After 2 weeks of Xarelto she will then be placed on aspirin 81 mg twice daily for an additional 2 weeks. She denies past history of DVT or pulmonary embolism 4. Physical therapy: Nonweightbearing on the right lower extremity. Patient has been managed at home by her family in which they are helping her with transfers. 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 5. H & H: 12.3/37.0, asymptomatic. Postoperative anemia from surgery without intraoperative complications. At this time there is no need for treatment. 6. Continue antibiotics while following cultures: Patient will continue with doxycycline for 2 weeks postoperatively while following cultures. Microbiology results were reviewed and there is currently been no growth or organisms on Gram stain. Cultures pending. I discussed with the patient potential side effects with the doxycycline including hypersensitivity to the sunlight and must take appropriate precautions. Also recommended probiotic while taking the antibiotic for 2 weeks postoperatively. Patient voiced understanding and agreement. 7. Encouraged incentive spirometry 8. Continue postoperative medical management per medicine 9. Postoperative constipation: Discussed with the patient to continue stool softener until first bowel movement. After first bowel movement patient can then take as needed. They were also instructed that if they are not able to have a bowel movement within 3 days they are to contact our office for change of medication. Patient voiced understanding. 10. Disposition: Patient appears to be stable this morning. Her labs have been stable. Her pain has been controlled so far on Tylenol. I was trying to discuss all of her medications with her however she was getting overwhelmed. I did try to reach out to patient's caregiver her daughter Melony denny. I was not able to reach her. I will attempt again to discuss postoperative medications. The plan will be for possible discharge home today versus tomorrow as long as patient is medically stable, tolerates transfers, and her pain is well-controlled. Patient's family has been taking care of her at home in which she will maintain her level of care postoperatively. She has been nonweightbearing and will remain nonweightbearing on the right lower extremity. The plan is for 2 phase with upcoming right knee distal femoral replacement. Patient did states she would like her medications E scribed to [facility] in [facility]. She will follow-up per postoperative instructions. She will contact her office upon discharge with any concerns or questions. I have reviewed the [place] Automated Rx Reporting System (OARRS) report for this patient for refill pattern and other prescriber involvement as part of the appropriate surveillance for the provision of acute and chronic controlled medications. The report was requested and reviewed on the date of this entry, and was considered in the prescribing process This dictation was created using voice recognition software. Phonetic and/or grammatical errors may exist. Digitally Signed by ARTHUR HARDING PA-C on 04/04/2023 07:53 AM [facility] 04-04-2023 Note Date of Service April 04, 2023 Subjective The patient was sitting in bed upon examination. Patient denies any chest pain, shortness of breath, dizziness, lightheadedness, nausea or vomiting, or calf pain. No adverse overnight events. Pain has been controlled on medications. Patient states she has only been taking Tylenol. She also tells me this morning that she does not like to take oxycodone as it makes her crazy . There is no listed allergy to oxycodone in the hospital chart and at our office we have listed allergy to hydrocodone. I am going to switch her medication over to tramadol as needed for breakthrough pain. Patient has had previous open reduction internal fixation of her right hip secondary to an intertrochanteric fracture by Dr. Dejesus on August 20, 2021. Patient had a another fall with an open reduction internal fixation of a right distal femur spiral fracture with Dr. Young on June 05, 2022. 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 Patient is planned for a distal third knee replacement by Dr. Aaron Zaman in May 2023. Upon discussion with the patient this morning she did become frustrated as we were talking about postoperative medications. She was overwhelmed and I did explain to the patient that I can reach out to her daughter who has been providing care at home. I did attempt initially to call her daughter but was not able to reach anyone. Objective Vitals and Measurements T: 36.7 C (Oral) TMIN: 36 C TMAX: 36.9 C (Oral) HR: 71(Apical) RR: 18 BP: 140/64 SpO2: 93% HT: 157.2 cm WT: 68 kg BMI: 27.52 Intake and Output 7AM Yesterday to 7AM Today Intake and Output (Last 24 hours) Intake Administration Information 1038.17 Supplement Intake 100.00 Output Urine Voided 2.00 Intra-Op EBL 150.00 Total Summary Total Intake 1138.17 Total Output 152.00 Fluid Balance 986.17 Physical Exam Vital signs stable, afebrile Right hip is soft and supple SCDs and SRIKANTH hose are in place bilaterally Patient is able to plantarflex and dorsiflex actively Sensation is intact to saphenous, sural, superficial and deep peroneal, and tibial distribution Dressing is clean dry and intact Negative signs and symptoms of DVT, negative Homans bilaterally Weight Dosing Weight: 68 kg (04/03/23) Dosing Weight: 68 kg (04/03/23) Medications Medications (29) Active Scheduled: (15) acetaminophen 500 mg Tablet 1,000 mg 2 tab(s), Oral, q8h bisacodyl 5 mg EC tablet 10 mg 2 tab(s), Oral, Once calcium-vitamin D 500 mg-200 units tablet 1 TAB, Oral, qDay dexamethasone 10 mg/mL (1mL) SDV 10 mg 1 mL, IV Push, AsDirected docusate sodium 100 mg Capsule 100 mg 1 cap(s), Oral, BID docusate-senna (Senokot S) 50 mg-8.6 mg Tablet 2 tab(s), Oral, BID doxycycline hyclate 100 mg Capsule 100 mg 1 cap(s), Oral, q12h famotidine 20 mg tablet 20 mg 1 tab(s), Oral, qDay magnesium hydroxide 8% Suspension 30 mL UD 30 mL, Oral, Daily meloxicam 7.5 mg tablet 7.5 mg 1 tab(s), Oral, BIDM multivitamin (Myadec) with minerals Therapeutic Multiple Vitamins with Minerals Tablet 1 tab(s), Oral, qDayM ondansetron 2 mg/ 1 mL 2 mL INJ 4 mg 2 mL, IV Push, q8h rivaroxaban 10 mg tablet 10 mg 1 tab(s), Oral, qDay tranexamic acid PMX 1 gram(s) 100 mL, IV Piggyback, AsDirected tranexamic acid PMX 1 gram(s) 100 mL, IV Piggyback, AsDirected Continuous: (1) Lactated Ringers 1,000 mL 1,000 mL, Intravenous, 20 mL/hr PRN: (13) acetaminophen 325 mg Tablet 650 mg 2 tab(s), Oral, q4h albuterol 0.083% Soln UD (2.5mg/3 mL) 2.5 mg 3 mL, Inhalation, Once diphenhydramine 25 mg tablet 25 mg 1 tab(s), Oral, q6h diphenhyDRAMINE 50 mg/mL (1 mL) INJ 25 mg 0.5 mL, IV Push, q6h ketorolac 30 mg/mL (1 mL) vial 15 mg 0.5 mL, IV Push, q6h morphine 2 mg/mL 1 mL syringe 2 mg 1 mL, IV Push, q1h morphine 2 mg/mL 1 mL syringe 2 mg 1 mL, IV Push, q5min ondansetron 2 mg/ 1 mL 2 mL INJ 4 mg 2 mL, IV Push, q8h ondansetron 2 mg/ 1 mL 2 mL INJ 4 mg 2 mL, IV Push, AsDirected oxycodone 5 mg tablet (immediate release) 5 mg 1 tab(s), Oral, q4h oxycodone 5 mg tablet (immediate release) 10 mg 2 tab(s), Oral, q4h prochlorperazine 10 mg/2 mL vial 5 mg 1 mL, IV Push, q6h sodium biphosphate-sodium phosphate 19 gm-7 gm Enema 133 mL, Rectal, qDay Lab Results 04/04 05:22 WBC: 7.5 Hgb: 12.3 Hct: 37.0 Platelet: 224 Neutrophil %: 84.9 H Glucose Level: 100 Sodium Level: 141 Potassium Level: 4.2 BUN: 12 Creatinine Lvl (s): 0.80 EKG Electrocardiogram [AOH] (EKG [AOH]) - InProcess -- 04/03/23 15:14:00 EST Assessment/Plan Osteoporosis Orders: traMADol, Start: 04/04/23 7:51:00 EST, Dose = 50 mg, = 1 tab(s), Oral, q6hr, PRN, as needed for pain, 04/04/23 7:51:00 EST 1. Status post right hip removal intramedullary nail with bone grafting large bony defect postop day #1 2. Continue pain medications: Tylenol and oxycodone. I did discontinue the oxycodone and will place her on tramadol for breakthrough pain. Currently she is only been using the Tylenol. I tried to discuss this in detail with her but patient was becoming overwhelmed. She states that oxycodone makes her go crazy . She also has listed allergy to hydrocodone and [facility] chart. Discontinued meloxicam as patient has history of ulcers. 3. DVT prophylaxis: Patient will continue with Xarelto for 2 weeks postoperatively for DVT prophylaxis as she is currently nonweightbearing and higher risk. After 2 weeks of Xarelto she will then be placed on aspirin 81 mg twice daily for an additional 2 weeks. She denies past history of DVT or pulmonary embolism 4. Physical therapy: Nonweightbearing on the right lower extremity. Patient has been managed at home by her family in which they are helping her with transfers. 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 5. H & H: 12.3/37.0, asymptomatic. Postoperative anemia from surgery without intraoperative complications. At this time there is no need for treatment. 6. Continue antibiotics while following cultures: Patient will continue with doxycycline for 2 weeks postoperatively while following cultures. Microbiology results were reviewed and there is currently been no growth or organisms on Gram stain. Cultures pending. I discussed with the patient potential side effects with the doxycycline including hypersensitivity to the sunlight and must take appropriate precautions. Also recommended probiotic while taking the antibiotic for 2 weeks postoperatively. Patient voiced understanding and agreement. 7. Encouraged incentive spirometry 8. Continue postoperative medical management per medicine 9. Postoperative constipation: Discussed with the patient to continue stool softener until first bowel movement. After first bowel movement patient can then take as needed. They were also instructed that if they are not able to have a bowel movement within 3 days they are to contact our office for change of medication. Patient voiced understanding. 10. Disposition: Patient appears to be stable this morning. Her labs have been stable. Her pain has been controlled so far on Tylenol. I was trying to discuss all of her medications with her however she was getting overwhelmed. I did try to reach out to patient's caregiver her daughter Melony denny. I was not able to reach her. I will attempt again to discuss postoperative medications. The plan will be for possible discharge home today versus tomorrow as long as patient is medically stable, tolerates transfers, and her pain is well-controlled. Patient's family has been taking care of her at home in which she will maintain her level of care postoperatively. She has been nonweightbearing and will remain nonweightbearing on the right lower extremity. The plan is for 2 phase with upcoming right knee distal femoral replacement. Patient did states she would like her medications E scribed to [facility] in [facility]. She will follow-up per postoperative instructions. She will contact her office upon discharge with any concerns or questions. I have reviewed the [place] Automated Rx Reporting System (OARRS) report for this patient for refill pattern and other prescriber involvement as part of the appropriate surveillance for the provision of acute and chronic controlled medications. The report was requested and reviewed on the date of this entry, and was considered in the prescribing process This dictation was created using voice recognition software. Phonetic and/or grammatical errors may exist. Digitally Signed by ARTHUR HARDING PA-C on 04/04/2023 07:53 AM [facility] 04-03-2023 Note ORIGINAL EXAMINATION: 2 XRAY VIEWS OF THE RIGHT HIP04/03/2023 3:39 pm COMPARISON: X-ray fluoro 04/03/2023 HISTORY: ORDERING SYSTEM PROVIDED HISTORY: Reason for Exam: Status Post surgery, FINDINGS: Partially visualized displaced fracture of distal shaft of right femur with metallic plate and screw fixation. Radiolucent tract seen in head, neck and proximal shaft of right femur corresponding to recently removed intramedullary juan and femur head screw. No obvious cortical discontinuity suggestive of femur head or neck fracture is seen. Right hip joint arthrosis seen. Enthesophyte/heterotopic ossifications seen adjacent to right greater trochanter. Atherosclerotic changes in arteries. Postoperative soft tissue changes including air and surgical cassandra over skin of right thigh. IMPRESSION: Radiolucent tracts in head and neck of right femur corresponding to recent removal of intramedullary prosthesis. Partially visualized displaced fracture of distal shaft of femur with metallic plate and screw fixation. Postoperative soft tissue changes.. I have personally reviewed the images of this examination and agree with the resident's findings and interpretation. Interpreted by: Imelda Jefferson MD Preliminary Report By: Kyaw Vinson Electronically signed By Imelda Jefferson MD Dictated Date: 04/03/2023 3:47:30 PM Prelim Date: 04/03/2023 4:00:32 PM Sign Date: 04/03/2023 4:00:32 PM Ordering Provider: AARON ZAMAN [facility] 04-03-2023 Note Sinus arrhythmia Multiple ventricular premature complexes Abnormal R-wave progression, early transition Probable left ventricular hypertrophy Inferior infarct, age indeterminate Electronic Signature: EASTON SEWELL MD 04/04/2023 19:50:54 [facility] 04-03-2023 Anesthesiology Consult note Patient: YASMIN SEGURA Age: 82 years Sex: Female : 1940 Associated Diagnoses: None Author: DELPHINE WOODS SPIRITUAL MINISTER-SENIOR COBOL DEVELOPER Assessment Postanesthesia assessment Vitals: Vital signs from flowsheet : Vital Signs 04/03/2023 14:50 EST Heart Rate Monitored 78 bpm bpm Respiratory Rate - Anes 20 br/min br/min Systolic Blood Pressure Non-Invasive 99 mmHg mmHg Diastolic Blood Pressure Non-Invasive 71 mmHg mmHg 04/03/2023 14:45 EST Temperature (Route Not Specified) 36 DegC DegC Heart Rate Monitored 100 bpm bpm Respiratory Rate - Anes 21 br/min br/min Systolic Blood Pressure Non-Invasive 102 mmHg mmHg Diastolic Blood Pressure Non-Invasive 69 mmHg mmHg 04/03/2023 14:40 EST Heart Rate Monitored 85 bpm bpm Respiratory Rate - Anes 36 br/min br/min Systolic Blood Pressure Non-Invasive 129 mmHg mmHg Diastolic Blood Pressure Non-Invasive 65 mmHg mmHg 04/03/2023 14:35 EST Heart Rate Monitored 83 bpm bpm Respiratory Rate - Anes 38 br/min br/min Systolic Blood Pressure Non-Invasive 163 mmHg mmHg Diastolic Blood Pressure Non-Invasive 75 mmHg mmHg 04/03/2023 14:30 EST Temperature (Route Not Specified) 36 DegC DegC Heart Rate Monitored 70 bpm bpm Respiratory Rate - Anes 16 br/min br/min Systolic Blood Pressure Non-Invasive 129 mmHg mmHg Diastolic Blood Pressure Non-Invasive 76 mmHg mmHg 04/03/2023 14:25 EST Heart Rate Monitored 67 bpm bpm Respiratory Rate - Anes 19 br/min br/min Systolic Blood Pressure Non-Invasive 99 mmHg mmHg Diastolic Blood Pressure Non-Invasive 65 mmHg mmHg 04/03/2023 14:20 EST Heart Rate Monitored 61 bpm bpm Respiratory Rate - Anes 30 br/min br/min Systolic Blood Pressure Non-Invasive 145 mmHg mmHg Diastolic Blood Pressure Non-Invasive 72 mmHg mmHg 04/03/2023 14:15 EST Temperature (Route Not Specified) 36 DegC DegC Heart Rate Monitored 62 bpm bpm Respiratory Rate - Anes 25 br/min br/min Systolic Blood Pressure Non-Invasive 118 mmHg mmHg Diastolic Blood Pressure Non-Invasive 61 mmHg mmHg 04/03/2023 14:10 EST Heart Rate Monitored 63 bpm bpm Respiratory Rate - Anes 16 br/min br/min Systolic Blood Pressure Non-Invasive 77 mmHg mmHg Diastolic Blood Pressure Non-Invasive 46 mmHg mmHg 04/03/2023 14:05 EST Heart Rate Monitored 63 bpm bpm Respiratory Rate - Anes 16 br/min br/min Systolic Blood Pressure Non-Invasive 101 mmHg mmHg Diastolic Blood Pressure Non-Invasive 64 mmHg mmHg 04/03/2023 14:00 EST Temperature (Route Not Specified) 36 DegC DegC Heart Rate Monitored 65 bpm bpm Respiratory Rate - Anes 16 br/min br/min Systolic Blood Pressure Non-Invasive 87 mmHg mmHg Diastolic Blood Pressure Non-Invasive 53 mmHg mmHg 04/03/2023 13:55 EST Heart Rate Monitored 62 bpm bpm Respiratory Rate - Anes 25 br/min br/min Systolic Blood Pressure Non-Invasive 129 mmHg mmHg Diastolic Blood Pressure Non-Invasive 61 mmHg mmHg 04/03/2023 13:50 EST Heart Rate Monitored 67 bpm bpm Respiratory Rate - Anes 14 br/min br/min Systolic Blood Pressure Non-Invasive 89 mmHg mmHg Diastolic Blood Pressure Non-Invasive 50 mmHg mmHg 04/03/2023 13:45 EST Temperature (Route Not Specified) 36 DegC DegC Heart Rate Monitored 67 bpm bpm Respiratory Rate - Anes 15 br/min br/min Systolic Blood Pressure Non-Invasive 108 mmHg mmHg Diastolic Blood Pressure Non-Invasive 69 mmHg mmHg 04/03/2023 13:40 EST Heart Rate Monitored 68 bpm bpm Respiratory Rate - Anes 15 br/min br/min Systolic Blood Pressure Non-Invasive 102 mmHg mmHg Diastolic Blood Pressure Non-Invasive 59 mmHg mmHg 04/03/2023 13:35 EST Heart Rate Monitored 68 bpm bpm Respiratory Rate - Anes 15 br/min br/min Systolic Blood Pressure Non-Invasive 137 mmHg mmHg Diastolic Blood Pressure Non-Invasive 71 mmHg mmHg 04/03/2023 13:32 EST Systolic Blood Pressure Non-Invasive 128 mmHg mmHg Diastolic Blood Pressure Non-Invasive 73 mmHg mmHg 04/03/2023 13:30 EST Temperature (Route Not Specified) 36 DegC DegC Heart Rate Monitored 78 bpm bpm Respiratory Rate - Anes 15 br/min br/min Systolic Blood Pressure Non-Invasive 76 mmHg mmHg Diastolic Blood Pressure Non-Invasive 44 mmHg mmHg 04/03/2023 13:25 EST Heart Rate Monitored 73 bpm bpm Respiratory Rate - Anes 15 br/min br/min Systolic Blood Pressure Non-Invasive 95 mmHg mmHg Diastolic Blood Pressure Non-Invasive 60 mmHg mmHg 04/03/2023 13:20 EST Heart Rate Monitored 84 bpm bpm Respiratory Rate - Anes 15 br/min br/min Systolic Blood Pressure Non-Invasive 144 mmHg mmHg Diastolic Blood Pressure Non-Invasive 76 mmHg mmHg 04/03/2023 13:15 EST Temperature (Route Not Specified) 36 DegC DegC Heart Rate Monitored 89 bpm bpm Respiratory Rate - Anes 16 br/min br/min Systolic Blood Pressure Non-Invasive 82 mmHg mmHg Diastolic Blood Pressure Non-Invasive 57 mmHg mmHg 04/03/2023 13:10 EST Heart Rate Monitored 90 bpm bpm Respiratory Rate - Anes 16 br/min br/min Systolic Blood Pressure Non-Invasive 94 mmHg mmHg Diastolic Blood Pressure Non-Invasive 31 mmHg mmHg 04/03/2023 13:05 EST Heart Rate Monitored 80 bpm bpm Respiratory Rate - Anes 0 br/min br/min Systolic Blood Pressure Non-Invasive 91 mmHg mmHg Diastolic Blood Pressure Non-Invasive 66 mmHg mmHg 04/03/2023 13:00 EST Respiratory Rate - Anes 0 br/min br/min 04/03/2023 12:55 EST Respiratory Rate - Anes 0 br/min br/min 04/03/2023 10:27 EST Temperature Temporal Artery 36.8 DegC Peripheral Pulse Rate 98 bpm Respiratory Rate 20 br/min Systolic Blood Pressure Non-Invasive 157 mmHg HI Diastolic Blood Pressure Non-Invasive 73 mmHg , Measurements from flowsheet . Mental status: alert & oriented x 4. Respiratory function: respirations are non-labored. Respiratory support: none. CV function: Normal rate. Cardiovascular support: none. Pain. Nausea status: see nursing documentation of medications. Postoperative hydration status: within normal limits. Digitally Signed by DELPHINE WOODS on 04/03/2023 02:56 PM [facility] 04-03-2023 Note ORIGINAL Images acquired, not reported on this accession number. [facility] 04-03-2023 Anesthesiology Consult note Patient: YASMIN SEGURA Age: 82 years Sex: Female : 1940 Associated Diagnoses: None Author: DELPHINE WOODS Preoperative Information Time of last food or liquid consumption: 04/03/2023 00:00:00 Anesthesia history Patient's history: negative. Family's history: negative. Health Status Allergies: Allergic Reactions (Selected) Severity Not Documented Sulfamethoxazole- No reactions were documented., Allergies (1) ActiveReaction sulfamethoxazoleNone Documented Current medications: (Selected) Inpatient Medications Ordered Betadine 10% topical solution: 17.5 mL, mL/hr, Topical (INT), PREOP pharm Decadron: 10 mg, 1 mL, IV Push, AsDirected LR 1,000 mL: 125 mL/hr, Intravenous, Stop: 04/03/23 23:59:00 EST Naropin 100 mg + Toradol 15 mg + EPINEPHrine 1 mg/mL injectable solution 0.3 mg + morphine 2.5 mg...: 100 mg, 20 mL, mL/hr, Other, PREOP pharm Naropin 100 mg + Toradol 15 mg + EPINEPHrine 1 mg/mL injectable solution 0.3 mg + morphine 2.5 mg...: 100 mg, 20 mL, mL/hr, Other, PREOP pharm tranexamic acid 1 g / 100 mL 0.7% NaCl PMX: 1 gram(s), 100 mL, 300 mL/hr, IV Piggyback, AsDirected tranexamic acid 1 g / 100 mL 0.7% NaCl PMX: 1 gram(s), 100 mL, 300 mL/hr, IV Piggyback, AsDirected Documented Medications Documented Calcium Plus Vitamin D3: 1 TAB, Oral, qDay, 0 Refill(s) Multivitamin: 1 tab(s), Oral, Daily, 0 Refill(s) alendronate 70 mg oral tablet: 70 mg, 1 tab(s), Oral, qWeek, 0 Refill(s), Medications (7) Active Scheduled: (6) dexamethasone 10 mg/mL (1mL) SDV 10 mg 1 mL, IV Push, AsDirected povidone iodine topical 17.5 mL, Topical (INT), PREOP pharm ropivacaine 100 mg + ketorolac 15 mg + epinephrine 0.3 mg + morphine 2.5 mg 100 mg 20 mL, Other, PREOP pharm ropivacaine 100 mg + ketorolac 15 mg + epinephrine 0.3 mg + morphine 2.5 mg 100 mg 20 mL, Other, PREOP pharm tranexamic acid PMX 1 gram(s) 100 mL, IV Piggyback, AsDirected tranexamic acid PMX 1 gram(s) 100 mL, IV Piggyback, AsDirected Continuous: (1) Lactated Ringers 1,000 mL 1,000 mL, Intravenous, 125 mL/hr PRN: (0) Problem list: Active Problems (1) No Chronic Problems Histories Past Medical History: No active or resolved past medical history items have been selected or recorded. Family History: Cancer Father Heart disease Grandparent Diabetes Mother Procedure history: Ankle ([id number]). Comments: 03/08/2023 11:10 Charisma Oquendo RN RIGHT Cholecystectomy ([id number]). Right hip ([id number]). Femur ([id number]). Comments: 03/08/2023 11:12 Charisma Oquendo RN RIGHT Social History Social & Psychosocial Habits Alcohol 04/03/2023 Use: Never Substance Abuse 04/03/2023 Use: Never Tobacco 04/03/2023 Tobacco Use: Never (less than 100 in l Home/Environment 04/03/2023 Living situation: Home with assistance Nutrition/Health 04/03/2023 Type of diet: Regular Appetite Fair . Physical Examination Vital Signs 04/03/2023 13:25 EST Heart Rate Monitored 73 bpm bpm Respiratory Rate - Anes 15 br/min br/min 04/03/2023 13:20 EST Heart Rate Monitored 84 bpm bpm Respiratory Rate - Anes 15 br/min br/min Systolic Blood Pressure Non-Invasive 144 mmHg mmHg Diastolic Blood Pressure Non-Invasive 76 mmHg mmHg 04/03/2023 13:15 EST Heart Rate Monitored 89 bpm bpm Respiratory Rate - Anes 16 br/min br/min Systolic Blood Pressure Non-Invasive 82 mmHg mmHg Diastolic Blood Pressure Non-Invasive 57 mmHg mmHg 04/03/2023 13:10 EST Heart Rate Monitored 90 bpm bpm Respiratory Rate - Anes 16 br/min br/min Systolic Blood Pressure Non-Invasive 94 mmHg mmHg Diastolic Blood Pressure Non-Invasive 31 mmHg mmHg 04/03/2023 13:05 EST Heart Rate Monitored 80 bpm bpm Respiratory Rate - Anes 0 br/min br/min Systolic Blood Pressure Non-Invasive 91 mmHg mmHg Diastolic Blood Pressure Non-Invasive 66 mmHg mmHg 04/03/2023 13:00 EST Respiratory Rate - Anes 0 br/min br/min 04/03/2023 12:55 EST Respiratory Rate - Anes 0 br/min br/min 04/03/2023 10:27 EST Temperature Temporal Artery 36.8 DegC Peripheral Pulse Rate 98 bpm Respiratory Rate 20 br/min Systolic Blood Pressure Non-Invasive 157 mmHg HI Diastolic Blood Pressure Non-Invasive 73 mmHg Vital Signs(last 24 hrs) Last Charted Heart Rate [id number] bpm (APR 03:) Resp Rate 20 br/min (APR 03:) DUO785 mmHg (APR 03:) DBP76 mmHg (APR 03:) BMI27.52 (APR 03:) Measurements from flowsheet : Measurements 04/03/2023 10:23 EST Height 157.2 cm Admission Weight 68 kg Weight Method Stated [place] Body Weight 49.85 kg BSA Admission 1.69 Body Mass Index 27.52 kg/m2 Pain assessment: Pain Assessment 04/03/2023 11:53 EST Primary Pain Intensity 0 04/03/2023 10:27 EST Primary Pain Intensity 0 Pain Scale Type 0-10 Pain scale . General: Alert and oriented. Airway: Normal temporomandibular joint mobility, Normal mouth. Mallampati classification: II (soft palate, fauces, uvula visible). Dentition Evaluation: Dentures, lower, Dentures, upper. Respiratory: Respirations are non-labored. Cardiovascular: Normal rate. Neurologic: Alert, Oriented. Review / Management Results review: No qualifying data available , Lab results 04/03/2023 13:33 EST SN - CAt - Case Attendee SN - CAt - Case Attendee SN - CAt - Role Performed Scrub 1 04/03/2023 13:32 EST SN - SP - Prep Agents Chloraprep SN - SP - Prep Agents Chloraprep SN - SP - HR - Method N/A SN - SP - HR - Method Clipped 04/03/2023 13:30 EST SN - CTm - Surgery Start 04/03/2023 13:30 04/03/2023 13:29 EST SN - Proc - Anesthesia Type Spinal SN - Proc - Actual Procedure INTRAMEDULLARY NAIL REMOVAL RIGHT HIP 04/03/2023 13:28 EST SN - CAt - Case Attendee SN - CAt - Case Attendee SN - CAt - Role Performed Other SN - CAt - Role Performed Lock Technician SN - CAt - Role Performed Physician Home Restoration Service Supervisor 04/03/2023 13:25 EST Heart Rate Monitored 73 bpm bpm Respiratory Rate - Anes 15 br/min br/min Oxygen Saturation 100 % % 04/03/2023 13:20 EST Heart Rate Monitored 84 bpm bpm Respiratory Rate - Anes 15 br/min br/min Systolic Blood Pressure Non-Invasive 144 mmHg mmHg Diastolic Blood Pressure Non-Invasive 76 mmHg mmHg Oxygen Saturation 100 % % 04/03/2023 13:15 EST Heart Rate Monitored 89 bpm bpm Respiratory Rate - Anes 16 br/min br/min Systolic Blood Pressure Non-Invasive 82 mmHg mmHg Diastolic Blood Pressure Non-Invasive 57 mmHg mmHg Oxygen Saturation 99 % % 04/03/2023 13:10 EST Heart Rate Monitored 90 bpm bpm Respiratory Rate - Anes 16 br/min br/min Systolic Blood Pressure Non-Invasive 94 mmHg mmHg Diastolic Blood Pressure Non-Invasive 31 mmHg mmHg Oxygen Saturation 100 % % 04/03/2023 13:05 EST Heart Rate Monitored 80 bpm bpm Respiratory Rate - Anes 0 br/min br/min Systolic Blood Pressure Non-Invasive 91 mmHg mmHg Diastolic Blood Pressure Non-Invasive 66 mmHg mmHg Oxygen Saturation 96 % % 04/03/2023 13:03 EST SN - Assess - LOC Alert SN - Assess - Orientation Oriented X 3 SN - Assess - Post-op Skin Integrity Intact/Dry 04/03/2023 13:02 EST SN - GCD - ASA Class 3 SN - GCD - Case Level Level 5 04/03/2023 13:00 EST SN - CAt - Case Attendee SN - CAt - Case Attendee SN - CAt - Case Attendee SN - CAt - Case Attendee SN - CAt - Case Attendee SN - CAt - Case Attendee SN - CAt - Case Attendee SN - CAt - Case Attendee SN - CAt - Case Attendee SN - CAt - Case Attendee SN - CAt - Case Attendee SN - CAt - Case Attendee SN - CAt - Role Performed Hole Digger 1 SN - CAt - Role Performed Hole Digger 2 SN - CAt - Role Performed Solar Installation Foreman SN - CAt - Role Performed SENIOR COBOL DEVELOPER SN - CAt - Role Performed Solar Installation Foreman SN - CAt - Role Performed Solar Installation Foreman 04/03/2023 13:00 EST Respiratory Rate - Anes 0 br/min br/min cefazolin 2 gram(s) gram(s) Sodium Chloride 0.9% 100 mL mL 04/03/2023 12:55 EST SN - CAt - Case Attendee SN - CAt - Case Attendee SN - CAt - Role Performed Primary Surgeon 04/03/2023 12:55 EST Respiratory Rate - Anes 0 br/min br/min 04/03/2023 12:08 EST SN - Preop - CTm Pt Ready for OR/Proced 04/03/2023 11:00 04/03/2023 12:08 EST SN - Preop - CTm Pt in SDS Room 04/03/2023 9:58 04/03/2023 11:53 EST Primary Pain Intensity 0 oxyCODONE Not Given: Physician Order (Not Done) 04/03/2023 10:46 EST citric acid-sodium citrate Not Done: Other (Not Done) 04/03/2023 10:39 EST celecoxib 400 mg mg Lactated Ringers Injection 1,000 mL mL 04/03/2023 10:37 EST famotidine 20 mg mg 04/03/2023 10:35 EST Wrist Left 04/03/2023 20 gauge Peripheral IV Activity: Insert new site Peripheral IV Dressing Condition: Clean, Dry, Intact Peripheral IV Dressing Activity: Applied, Transparent dressing Peripheral IV Line Status/Patency: Continuous infusion Peripheral IV Site Condition: No complications Peripheral IV Equipment: Extension set Peripheral IV Number of Attempts: 1 04/03/2023 10:27 EST Temperature Temporal Artery 36.8 DegC Peripheral Pulse Rate 98 bpm Respiratory Rate 20 br/min Systolic Blood Pressure Non-Invasive 157 mmHg HI Diastolic Blood Pressure Non-Invasive 73 mmHg Primary Pain Intensity 0 Pain Scale Type 0-10 Pain scale Heart Sounds ICU S1S2 Heart Rhythm Regular Respirations Unlabored Respiratory Pattern Regular Oxygen Therapy Room air Oxygen Saturation 97 % Abdomen Description Non-distended, Soft Abdomen Palpation Non-Tender Skin Temperature Warm Skin Description Normal for ethnicity Skin Integrity Intact Skin Moisture General Dry Neurological Symptoms Patient denies Extremity Movement Equal Characteristics of Speech Clear Level of Consciousness Alert Strength All Extremities Weak Tone All Extremities Normal Sensation All Extremities Intact Affect/Behavior Appropriate, Calm, Cooperative Orientation Oriented x 4 Dylon Motor (2) Moves 4 extremities voluntarily or on command Dylon Respirations (2) Spontaneous respiration without support, RR > 10 Dylon Blood Pressure (2) BP 20% above or below preanesthetic level Dylon Pulse (2) Pulse 20% above or below preanesthetic level Dylon Oxygen Saturation (2) 94% or more Dylon Level of Consciousness (2) Fully awake Dylon III Score 12 Assistive Device Wheelchair Mobility Assistance Level Moderate assistance Activity Status ADL Awake Standard Safety ID band on, Allergy Band on, Call device within reach, Bed in low position, Wheels locked, Upper/Half-Length side-rails up, Non-Slip footwear, Precautions maintained 04/03/2023 10:26 EST Last Fluid Intake 04/02/2023 20:00 Last Food Intake 04/02/2023 20:00 04/03/2023 10:23 EST Designated Person #1 We May Share PHI Designated Person #1 We May Share PHI Designated Person #1 Relationship Daughter Height 157.2 cm Admission Weight 68 kg Weight Method Stated [place] Body Weight 49.85 kg BSA Admission 1.69 Body Mass Index 27.52 kg/m2 Status N/A Sensory Deficits None Infectious Disease Symptoms Patient states no symptoms Infectious Disease Recent Exposure No Alcohol and Drug Use No Employee of Institutional Living No Health Care Employee No History of Exposure to TB No History of Positive Chest X-Ray for TB No History of Positive TB Skin Test No Homeless No Known Immunosuppression No Recent Immigrant No Resident of Institutional Living No Bloody Sputum No Fatigue No Fever No Loss of Appetite No Night Sweats No Persistent Cough > 3 Weeks No Weight Loss No Barriers to Learning None evident Teaching Method Explanation Preferred Spoken Language Eritrean Preferred Written Language Eritrean Information Given by Patient Patient's Current Physicians RADHA CABRERA PCP Discharge To, Anticipated Home with family care Prev Test Positive/Diagnosis w/COVID-19 No Current Quarantine/Isolated any Illness No Any Contact with Sick Animals/Birds No Traveled Anywhere in Last 30 Days No N/A Personal Devices, Patient Valuables Dentures, lower, Dentures, upper, Glasses Admission Note-Nursing Procedure/Therapy Intake 04/03/2023 10:09 EST IV Present Present Allergies Yes Anesthesia Extension Set Applied Yes Consent Form Signed Yes Patient Dressed In Hospital gown, No undergarments Pre-op Preparation Jewelry removed, Undergarments removed CHG Preoperative Wash/Wipe Night before procedure (Modified) CHG Skin Prep Completed for Eligible Surgery History & Physical Update On Chart Yes History & Physical On Chart Yes Obstructive Sleep Apnea Assess Completed Yes Belongings At Bedside Pants, Shirt, Shoes, Socks, Undergarments NPO Status Maintained Allergy Band on and Verified Yes Patient ID Band on and Verified Yes Implants Verified Yes Pacemaker/AICD Verified Yes (Modified) Site Verified by Patient/Family Yes Anesthesia Consent Signed Yes Blood Consent Signed Yes Last Void 04/03/2023 10:10 04/03/2023 10:08 EST ABO/Rh Interp O POS Antibody Screen Gel Negative ABSC . Assessment and Plan Citizen Of [place] Society of Anesthesiologists (ASA) physical status classification: Class III. Anesthetic Preoperative Plan Anesthetic technique: Spinal. Risks discussed: serious complications, GA vs Spinal at length and complications per their request. Informed consent: signed by patient. Digitally Signed by DELPHINE WOODS on 04/03/2023 01:37 PM [facility] 07-13-2022 Note [facility] DISCHARGE SUMMARY NAME ACCOUNT SEX AGE ADMIT DISCHARGE PT MED. RECORD# NUMBER DATE DATE TYPE YASMIN SEGURA [id number] F 81 06/04/22 1 [facility] [id number] ROOM: 306 DATE OF : 1940 ATTENDING PHYSICIAN: Yessenia Guallpa ADDENDUM Initial discharge was completed on June 07, 2022, and we are still awaiting insurance approval. I saw the patient his a.m. Her vital signs are stable. Blood pressure 127/74, heart rate 89, respirations 18, temperature 98.2, and oxygen saturation 93% on room air. A well-nourished, well-developed 81-year-old female. Lungs are clear to auscultation bilaterally. Heart regular rate and rhythm. She states the pain is controlled. I did discuss with her and the daughter regarding adding calcium to her regimen with vitamin D. I will add that to her medication list while she is here waiting discharge and also to her medication reconciliation for discharge to [facility]. The rest of the discharge medication reconciliation as well as discharge paper work and summary were completed on June 07, 2022. At this point just awaiting insurance approval and she is stable. I evaluated the patient myself ,the accurate E&M above is done by me Blake Guallpa MD Dictated by emily Duncan for Dr. Guallpa. 06/08/22 10:23 JOB #: [id number] Transcribed By: tomas 06/08/22 10:41 Electronically signed by: E-Sign: YESSENIA GUALLPA MD 07/13/22 09:48 Page 1 of 1 YASMIN SEGURA Discharge Summary [facility] 07-13-2022 Note [facility] DISCHARGE SUMMARY NAME ACCOUNT SEX AGE ADMIT DISCHARGE PT MED. RECORD# NUMBER DATE DATE TYPE YSAMIN SEGURA [id number] F 81 06/04/22 1 [place] [id number] ROOM: 306 DATE OF : 1940 ATTENDING PHYSICIAN: Yessenia Guallpa DISCHARGE DATE: June 07, 2022 DISCHARGE DESTINATION: [facility] DISCHARGE DIAGNOSIS: 1. Right femur fracture. Status post right femur open reduction and internal fixation. 2. Blood loss anemia. 3. Status post blood transfusion two units. 4. Urinary tract infection, treated. 5. Status post fall at home. OPERATIVE PROCEDURES: Right femur open reduction internal fixation on June 05, 2022. CONSULTING PHYSICIANS: Dr. Gurjit Young [facility] COURSE: For full history and physical, and consultation please see report. For brief summary see below. This is an 81-year-old female. She had right knee pain following a fall at home. She came to the emergency with acute femoral fracture. Orthopedics was consulted. She was recommended to be admitted under medical service. Urinalysis revealed leukocytosis and she was treated for cystitis versus urinary tract infection with Rocephin for three doses. She also received Ancef for the surgery. She was seen by Dr. Young and placed on non-weight bearing. She underwent surgical repair without any apparent complications. She was given two units of packed red blood cells due to blood loss anemia. support services manager on consultation as well as utilization review for discharge planning and it was decided that [facility] to [facility] on the date of discharge. Blood pressure is stable. She is afebrile. Oxygen saturation 92% on room air. Labs were reviewed. Hemoglobin is 8.1. She was started on ferrous sulfate this morning. Lungs are clear. Heart regular rate and rhythm. Discharge instructions are as below. She was encouraged to use incentive spirometry every one hour while awake and final discharge is pending insurance approval but she has been accepted at [facility]. All arrangements have been made. CONDITION ON DISCHARGE: Improved. Page 1 of 2 YASMIN SEGURA Discharge Summary [facility] SE[facility]URA : 1940 MEDICATIONS ON DISCHARGE: (1) Ferrous sulfate 325 mg daily, (2) Lovenox 30 mg subcutaneous daily for six weeks postoperatively per Orthopedics, (3) acetaminophen 650 mg every four hours prn, (4) Oxycodone 2.5 mg every six hours prn for moderate to severe pain, number ten with no refills given, (5) Continue multivitamin one tab daily. DISCHARGE INSTRUCTIONS/PLAN: Regular diet. Increase activity as tolerated with non-weight bearing right lower extremity. Knee immobilizer - remove for hygiene purposes only. Minimal range of motion of right knee for two weeks. SCDs bilateral lower extremities. Dressing to stay in place until postop day number five, dry sterile dressing, changed daily. Remove Bush catheter on Thursday, June 09, 2022. Follow up with Dr. Young in two weeks in the [place] [facility]. Repeat CBC on Sunday, June 12, 2022. I evaluated the patient myself ,the accurate E&M above is done by me Blake Guallpa MD Dictated by emily Duncan for Dr. Guallpa. 06/07/22 11:48 JOB #: [id number] Transcribed By: tomas 06/07/22 12:49 Electronically signed by: E-Sign: YESSENIA GUALLPA MD 07/13/22 09:46 Page 2 of 2 YASMIN SEGURA Discharge Summary [facility] 07-13-2022 Note [facility] PROGRESS NOTE NAME ACCOUNT SEX AGE ADMIT DISCHARGE PT MED. RECORD# NUMBER DATE DATE LANA SEGURA [id number] F 81 06/04/22 1 YASMIN [facility] [id number] ROOM: 306 DATE OF : 1940 DICTATING PHYSICIAN: Yessenia Guallpa DATE OF SERVICE: June 06, 2022 SUBJECTIVE: Ms. Segura has been doing fairly well. She denied any fever or chills. She still has pain in the head, but well-controlled. She is comfortable. OBJECTIVE: VITAL SIGNS: Heart rate is 103, blood pressure 157/80. HEENT: Unremarkable. NECK: Neck is supple. LUNGS: Lungs are clear. HEART: The heart was regular. ABDOMEN: Soft. EXTREMITIES: Extremities revealed no edema. DIAGNOSTIC DATA: Laboratory data has revealed the following: Her white count is 9.7, hemoglobin 9.5, hematocrit 27.7. Of note, is that the patient did receive transfusions already. Her potassium is 3.9, BUN 10, creatinine 0.76. ASSESSMENT: 1. Blood loss anemia, required transfusion. This is related to a large and extensive surgery. The patient's hemoglobin now is holding at 9.5, which is adequate in her case. 2. Status post left hip fracture status post repair complex, and appeared to be doing well with improving pain, but still will require rehabilitation. PLAN: The patient will continue with current treatment. We will go ahead and discontinue IV fluids. Dictated By: Yessenia Guallpa MD 06/06/22 12:02 JOB #: [id number] Transcribed By: am 06/06/22 13:48 Electronically signed by: E-Sign: YESSENIA GUALLPA MD 07/13/22 09:42 Page 1 of 2 YASMIN SEGURA Note YASMIN NOWAK : 1940 Page 2 of 2 YASMIN SEGURA Note [facility] 06-05-2022 Note [facility] CONSULTATION REPORT NAME ACCOUNT SEX AGE ADMIT DISCHARGE PT MED. RECORD# NUMBER DATE DATE TYPE JAYCE, [id number] F 81 06/04/2022 1 YASMIN [place] [id number] ROOM: 306 DATE OF : 1940 DICTATING PHYSICIAN: Gurjit Young DATE OF CONSULTATION: June 04, 2022 REQUESTING PROVIDER: Dr. Sal Cavazos CHIEF COMPLAINT: Right thigh pain. HISTORY OF PRESENT ILLNESS: This is a healthy 81-year-old female sustaining a mechanical fall at home. She was getting ready to sleep on the couch and fell on her right side. She noticed immediate right thigh/knee pain. She is unable to bear weight and was brought [facility]. X-rays revealed a spiral distal femur fracture. I was consulted in the emergency apartment. I recommended mobilization, a knee mobilizer, admission to the service of the hospitalist for preoperative observation and surgical fixation, I saw the patient in consultation today. She denied any other symptoms other than right thigh pain. She denies any antecedent right thigh pain. The patient did have a right intertrochanteric femur fracture fixed with a short cephalomedullary nail in July of [address] Naren Dejesus. The patient apparently has been doing well. He has been ambulating with a walker and a cane since the injury. She reports some antecedent right knee pain due to remote injury and surgery in her teenage years in the right knee as well as some right hip pain has persisted with the hip surgery. Denies any history of cancer. Denies any antecedent pain in the thigh prior to the injury yesterday. She denies any fever, chills, nausea, vomiting, chest pain, or shortness of breath. PAST MEDICAL HISTORY: (1) History of pancreatitis. (2) Gallbladder disease. (3) History of right breast lump. PAST SURGICAL HISTORY: (1) Cholecystectomy. (2) Right ankle fracture surgery. (3) Right humeral head fracture. (4) Right wrist fracture. (5) Right hip surgery. CURRENT MEDICATIONS: The patient takes no return home medications. ALLERGIES: SULFA, HYDROCODONE, CO-GESIC. 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 SOCIAL HISTORY: Nonsmoker. Denies excessive alcohol consumption. No recreational drugs. REVIEW OF SYSTEMS: Twelve point of review of systems obtained are negative unless otherwise noted in history of present illness. PHYSICAL EXAMINATION: Vital signs: From June 04, 2022 at 0728 hours temperature is 36.7 temporal, pulse 108, respirations 14, BP 113/70. O2 saturations are 97 on liter nasal cannula. Height is 157.5 cm. Weight is 65.68 kilos. General: Is alert and oriented times three. NAD. HEENT: Is normocephalic and atraumatic. Extraocular movements intact. Respiratory: Normal work of breathing, no intercostal retraction. Cardiovascular: No murmurs, gallops or rubs. Regular rate and rhythm. Abdomen: Soft. Nontender. Nondistended. Neurologic: Cranial nerves II-XII grossly intact. Motor intact four. Extremities: Nontender bilateral upper extremities, cervical spine, left lower extremity. Full range of motion in motor and sensation intact throughout. Right lower extremity no gross deformity of the right leg. Tenderness in the mid thigh. Ankle dorsiflexion, plantar flexion, EHL strength 5/5. Sensation to light touch L3-S1 dermatomes. DP pulse 2+. Brisk capillary refill in the toes. Skin: intact circumferentially without lacerations or abrasions. No significant ecchymosis. Compartments are soft and compressible. DIAGNOSTIC DATA: X-rays reviewed from June 03, 2022 demonstrates spiral right mid to distal third femoral shaft fracture with significant displacement and shortening. Prior short cephalomedullary nail fixation is noted with apparently well healed intertrochanteric proximal femur fracture in anatomic alignment. ASSESSMENT: Right femur fracture. RECOMMENDATIONS: I recommended surgical intervention in form of right femur open reduction internal fixation, retrograde nailing is unable to be performed due to cephalomedullary implant. We are planning with lateral locking plate fixation to bypass the short cephalomedullary device as well. Risks, benefits, and alternatives of procedure were reviewed with the patient at length and she agreed to proceed. Risks included but were not limited to bleeding, infection, loss of life or limb, need for additional surgery, nonhealing wounds or bones, persistent pain, stiffness of the knee or hip, loss of independence or inability to ambulate penitentiary, risk for anesthesia. The patient expressed understanding of these risks and wished to proceed with surgery. Surgical implant delivery has been delayed in sterilization process. Would likely push surgery into wee hours of tonight. We will let the patient eat today and plan for surgery tomorrow when o (more content not included)... [facility] Evaluation + Plan note Future Appointments [facility] Hospital course Narrative No data available for this section [facility] Hospital Discharge instructions No data available for this section [facility] Progress note No data available for this section [facility] Summary Purpose Family History No Family History Records Found No data available for this section No data available for this section No Family History Records FoundNo Family History Records FoundNo Family History Records Found Advance Directives No Advanced Directives Records FoundNo Advanced Directives Records FoundNo Advanced Directives Records FoundNo Advanced Directives Records Found Additional Source Comments INFORMATION SOURCE (unrecogn ized section and content) DATE CREATED AUTHOR AUTHOR'S ORGANIZ ATION 04/14/2023 [facility] DATE CREATED AUTHOR AUTHOR'S ORGANIZ ATION 04/16/2023 [facility] DATE CREATED AUTHOR AUTHOR'S ORGANIZ ATION 04/19/2023 [facility] ([place]) Patient Care team informatio n (unrecognized section and content) Care Team Personnel Name: RADHA SANFORD PA-C Member Role: Primary Care Physician Address: Address: [address] [place] [address] [place] [address]- Care Team Personnel Name: RADHA SANFORD PA-C Member Role: Primary Care Physician Address: Address: [address] [place] [address] [place] [address]- [place] Care Team Related Persons Name: MELONY DENNY FOR RECORDS PERTAINING TO PATIENTS WHO ARE OR HAVE BEEN ENROLLED IN A CHEMICAL DEPENDENCY/SUBSTANCEABUSE PROGRAM, SOME INFORMATION MAY BE OMITTED. This clinical summary was aggregated from multiple sources. Caution should be exercised in using it in the provision of clinical care. This summary normalizes information from multiple sources, and as a consequence, information in this document may materially change the coding, format and clinical context of patient data. In addition, data may be omitted in some cases. CLINICAL DECISIONS SHOULD BE BASED ON THE PRIMARY CLINICAL RECORDS. [facility] [employer] [facility]. provides no warranty or guarantee of the accuracy or completeness of information in this document.
[2023-04-21 13:47] VITALS: BMI 26.4
[2023-04-21] MEDS: Ibuprofen 600 MG Tablet PO (15:38)
[2023-04-21] MEDS: Sertraline 50 MG Tablet PO (19:57)
[2023-04-21] MEDS: Aspirin 325 MG Tablet PO (21:18)
[2023-04-21] MEDS: Senna/Docusate Sodium 1 Tablet PO (21:18)
[2023-04-21] MEDS: Cefadroxil 500 MG CAPSULE PO (21:18)
--- NOTE | 2023-04-21 21:19 | NURSING ---
Spoke w/ Dr. Munoz via phone re: admission to unit. He notes Dr. Mark will see pt tomorrow. No issues per nursing at this time. Will continue to monitor.
[2023-04-22] MEDS: Ibuprofen 600 MG Tablet PO ×2 (05:12→13:39)
[2023-04-22 06:48] LABS: Hematocrit 28.6 % (37-47); Mean Corp Hgb Conc 31.5 g/dL (32-36); Mean Corpuscular Hgb 28.5 pg (27.0-32.0); Mean Corpuscular Volume 90.5 fL (81-99); Mean Platelet Vol. 9.4 fl (6.2-12.0); POSITIVE COUNT YES; POSITIVE MORPHOLOGY YES; Platelet Count 396 K/mm3 (150-450); RBC Distribution Width CV 14.6 % (11.6-14.6); RBC Distribution Width SD 47.7 fl (35.1-43.9); Red Blood Count 3.16 M/mm3 (4.2-5.4); White Blood Count 7.8 K/mm3 (4.4-11.0)
[2023-04-22 06:58] LABS: Differential Indicated MANUAL DIFF
[2023-04-22 07:13] LABS: Anion Gap 6 (5-15); BUN 15 mg/dL (7-18); BUN/Creat Ratio 21.1 RATIO (10-20); Calcium,Total 9.4 mg/dL (8.5-10.1); Chloride 107 mmol/L (98-107); Creatinine, Serum 0.71 mg/dL (0.55-1.02); EST Glomerular Filtration Rate 84 mL/min (>60); Est Glom Filt Rate - Afr Amer 101 mL/min (>60); Estimated Creatinine Clearance 33.71 ml/min; Glucose 113 mg/dL (74-106); Potassium 3.5 mmol/L (3.5-5.1); Sodium Level 139 mmol/L (136-145)
[2023-04-22] MEDS: Miconazole Nitrate 43 GM Bottle 1 APPLIC TOPICAL ×2 (10:17→21:01)
[2023-04-22] MEDS: Aspirin 325 MG Tablet PO ×2 (10:17→21:00)
[2023-04-22] MEDS: Cefadroxil 500 MG CAPSULE PO ×2 (10:17→21:00)
[2023-04-22] MEDS: Tuberculin,Purif.prot.deriv. 50 TU/ML Vial 0.100000000000000006 ML ID (10:18)
[2023-04-22 11:31] LABS: Eosinophil 1 % (0-5); Lymphocyte 10 % (19-41); Monocyte 6 % (0-10); Myelocyte 5 % (0-0); Neutrophil-Band 3 % (0-5); Neutrophil-Segmented 75 % (47-70); Platelet Estimate ADEQUATE (ADEQ); Red Cell Morphology NORM C+C NORMAL (NORM C&C); Total Cells Counted 100 (MANUAL DIFF)
[2023-04-22 11:33] LABS: Absolute Neutrophil Count 6.1 X10^3/uL (2.0-7.7)
[2023-04-22 11:34] LABS: Absolute Lymphocyte Count 0.78 X10^3/uL (0.83-4.51)
[2023-04-22] MEDS: Ferrous Sulfate 325 MG Tablet PO (11:34)
--- NOTE | 2023-04-22 15:19 | NURSING ---
Pt A&Ox1 to self only and had some confusion in morning. daughter was in to visit pt this afternoon and expressed concern regarding confusion/recent UTI. Pt currently receives PRN ibuprofen q6hrs, ineffective. Large amount of serosanguineous drainage noted to RLE dressings when changed. RN called and updated Dr. Mark, received new orders for: scheduled Tylenol TID, Tramadol PRN q6hrs, UA (straight cath d/t incontinence), Demarcus, and ensure plus. Called and updated primary contact, Masha, daughter.
[2023-04-22] MEDS: traMADol 50 MG Tablet PO (15:30)
[2023-04-22 16:00] VITALS: BP 142/70; PULSE 85; RESP 16; TEMP 36.4; O2SAT 95
[2023-04-22 16:51] LABS: Bacteria 0 SEEN /hpf (None Seen); Red Blood Cells-Urine 0 SEEN /hpf (0-5); Squamous Epithelial Cells - UA 0 SEEN /hpf (5-10)
[2023-04-22 16:55] LABS: Color, Urine Yellow (Yellow); Glucose, Dipstick Normal (Normal); Ketone-Dipstick Negative (Negative); Leukocyte Esterase-Dipstick 25 /ul (Negative); Nitrite-Dipstick Negative (Negative); Occult Blood-Urine Negative /ul (Negative); Protein-Dipstick Negative (Negative); Specific Gravity, Urine 1.015 (1.002-1.030); Urine Bilirubin Dipstick Negative (Negative); Urine Clarity Clear (Clear); Urine Urobilinogen Normal (Normal)
[2023-04-22] MEDS: Ensure Plus High Protein 120 ML LIQUID PO ×2 (17:02→21:01)
[2023-04-22 17:05] LABS: Mucous, Urine RARE /hpf (<or=2+); White Blood Cells 0-5 SEEN /hpf (0-5); Yeast-Urine RARE /hpf (None Seen)
[2023-04-22] MEDS: Juven (unflavored) Packet 1 PACKET PO (17:48)
--- NOTE | 2023-04-22 18:50 | NURSING ---
Pt was transferred into recliner by PT this morning, extensive x2 assist. When transferring back into bed, pt had increased pain and unsafe transfer. Will avoid weight-bearing transfers until pain is managed better. Pt did receive new orders today for pain management.
[2023-04-22] MEDS: Acetaminophen 500 MG Tablet 1000 MG PO (20:59)
[2023-04-22] MEDS: Sertraline 50 MG Tablet PO (21:00)
[2023-04-23] MEDS: Ensure Plus High Protein 120 ML LIQUID PO ×3 (05:49→20:49)
[2023-04-23] MEDS: Acetaminophen 500 MG Tablet 1000 MG PO ×3 (05:49→20:49)
[2023-04-23 08:21] VITALS: BP 140/71; PULSE 79; RESP 16; O2SAT 97
[2023-04-23] MEDS: Juven (unflavored) Packet 1 PACKET PO ×2 (08:27→17:37)
[2023-04-23] MEDS: traMADol 50 MG Tablet PO ×2 (08:29→20:49)
[2023-04-23] MEDS: Miconazole Nitrate 43 GM Bottle 1 APPLIC TOPICAL ×2 (08:30→20:50)
[2023-04-23] MEDS: Aspirin 325 MG Tablet PO (08:30)
[2023-04-23] MEDS: Cefadroxil 500 MG CAPSULE PO ×2 (08:30→20:48)
--- NOTE | 2023-04-23 10:31 | HP.PCM_ITS ---
[facility] - General General Date of Admission: 04/21/23 Date of Service: 04/23/23 HPI Narrative YASMIN EDUARDO, is a 82 F with a past medical history of anemia, prior right hip arthroplasty, history of right total hip arthroplasty/ORIF of right distal femur fracture in July of 2021 (by Dr. Naren Dejesus) and osteoporosis. She suffered a second femur fracture that was plated by Dr. Krause. 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 On 04/04/2023 she had removal of gamma nail and bone grafting with plans for distal femur and knee replacement in May 2023. She was doing well until she was being transferred from a to a lift chair on 04/08/23 and experienced severe R hip and leg pain. She was taken to [facility] emergency department on 04/10/23 and found to have an acute R subcapital femoral neck fracture (S/P ORIF) with non-union. There was marked osteopenia and a mottled trabecular pattern as well and infiltrative process could not be ruled out. Family requested transfer to [facility] for a total femur replacement. At the time of transfer she was confused and hallucinating which her family attributed to Oxycodone. She was also discovered to have a urinary tract infection secondary to Proteus which was treated with antibiotics. On 04/16/2023 she underwent a right intramedullary total femur arthroplasty with Dr. Balderas. Postoperatively her hemoglobin dropped to the mid sixes and she was transfused with 1 unit of packed red blood cells for hypotension and lactic acidosis. She was also administered fluids and hypotension resolved. On 04/21/23 she was transferred to the transitional care unit/SNF at [facility] for therapy/strengthening prior to returning home. She is still confused and hallucinating and family requested we try Tramadol for pain. We also scheduled Tylenol for her. A UA was done in light of the recent Proteus UTI and it was negative for infection. Afebrile Systolic blood pressure is mildly increased but the diastolic is within normal limits. Heart rate is within normal limits. She is maintaining appropriate oxygen saturation on room air with no tachypnea no respiratory distress. All lab from 04/22/2023 was personally reviewed. The white blood cell count is within normal limits. Hemoglobin is mildly decreased at 9 with normochromic no rmocytic indices. Platelets are within normal limits. Sodium is 139 and the potassium is borderline low at 3.5. The BUN is 15 with a creatinine of 0.71 and a BUNs/creatinine ratio of 21.1. Estimated creatinine clearance is 34. UA showed 0-5 white blood cells with no bacteria and it was a straight cath specimen. Not currently on any pharmacologic DVT prophylaxis nor is she on SRIKANTH hose or SCDs. [facility] Medical History (Updated 04/23/23 @ 12:[address] Latricia Mark DO) Chronic anemia Osteoporosis Right femoral fracture Allergy/AdvReac Type Severity Reaction Status Date / Time oxycodone Allergy Severe ALTERED Verified 04/21/23 13:45 MENTAL STATUS Sulfa (Sulfonamide Allergy Unknown Hives Verified 04/21/23 13:45 Antibiotics) hydrocodone Allergy Other Verified 04/21/23 13:45 Surgical History (Updated 04/23/23 @ 12:[address] Latricia Mark DO) History of arthroplasty of right knee History of total right hip arthroplasty Status post open reduction and internal fixation (ORIF) of fracture with n onunion Social History Smoking Status: Never smoker ROS Review of Systems ROS Unobtainable: other Details: Pt is very fatigued and sleepy. Hx is difficult to obtain because I keep having to arouse her. She is able to answer my questions and follow simple commands when she is awake. She tells me that her pain is tolerable. She could tell me the month. She thought it was 2023. She could tell me her age and her name. Constitutional Constitutional: Reports weakness ENT HEENT: Reports dry mouth; Denies headache(s) Cardiovascular Cardiovascular: Denies abdominal pain, chest pain, dizziness or palpitations Respiratory/Chest Respiratory/Chest: Denies cough, shortness of breath at rest or tachypnea Gastrointestinal Gastrointestinal: Reports nausea; Denies abdominal pain or diarrhea Genitourinary Genitourinary: Denies dysuria Musculoskeletal Musculoskeletal: Reports extremity pain and other Details: She describes pain is tolerable at the present time and has been switched from oxycodone to tramadol and scheduled Tylenol for pain relief. Neurologic Neurologic: Reports confusion; Denies headache(s) or seizure-like activity Psychiatric Psychiatric: Reports confusion, hallucinations and other Details: Seems better with the change in the pain medication to Tramadol. Vital Signs Vital Signs Vital Signs: 04/22/23 16:00 04/23/23 08:21 Temperature 97.6 F L Temperature Source Temporal Pulse Rate 85 79 Respiratory Rate 16 16 Blood Pressure 142/70 H 140/71 H Blood Pressure Mean 94 94 Blood Pressure Source Manual Monitor Blood Pressure Position Semi-Fowlers Semi-Fowlers Blood Pressure Location Left Arm Left Arm Pulse Ox 95 97 Oxygen Delivery Method Room Air Room Air Weight Weight: 144 lb Body Mass Index (BMI) 26.4 Physical Exam Const Constitutional Narrative: Drowsy but does arouse and she is able to follow commands and answer questions. Seems less confused today. General Appearance: cooperative and comfortable HEENT HEENT Narrative: Very dry mucous membranes. No facial asymmetry. She is pale. Head and Scalp: normocephalic Eyes conjunctivae normal and no scleral icterus General Eye: normal appearance of both eyes Neck General: trachea midline; Negative for anterior neck swelling or lymphadenopathy Chest Chest: symmetrical chest wall rise Resp Resp Narrative: CTA anteriorly. Not tachypneic and no conversational dyspnea. Cardio regular rhythm, no murmurs, no rub and no gallops Cardio Narrative: No ectopy. She is mildly tachycardic and I suspect this is due to dehydration. Jugular Venous Distention: Negative for JVD GI normal to inspection, nondistended, normoactive bowel sounds, soft to palpation and non-tender GI Narrative: No guarding with palpation of the epigastric area. Extremity Extremity Narrative: I did not remove the dressings but, there is no erythema extending beyond the border of the dressing and there is no DC on the dressing. Will exam tomorrow when she is more awake. She is very comfortable and I due not want to jostle her around the this time. Both feet are warm with intact pulses. There is no ankle edema. Some dependent edema in the upper R thigh Skin no jaundice General Skin Exam: no breakdown Rashes: no rashes Neuro CN's II-XII intact bilaterally and moves all extremities Sensorium / Orientation: oriented to person and other Oriented to the month. Remembers that she came from [place]. She is appropriately answering questions and able to follow commands. Psych Appearance: appropriate and well kempt Attitude: calm Activity / Motor Behavior: appropriate eye contact Results Lab / Micro Data 04/22/23 06:03 04/22/23 06:03 Labs: Laboratory Results - last 24 hr 04/22/23 06:03: Absolute Neuts (auto) 6.1, Absolute Lymphs (auto) 0.78 L, Total Counted 100, Neutrophils % (Manual) 75 H, Band Neutrophils % 3, Lymphocytes % (Manual) 10 L, Monocytes % (Manual) 6, Eosinophils % (Manual) 1, Myelocytes % 5 H, Diff Path Review August foll, Platelet Estimate ADEQUATE, RBC Morphology NORM C+C 04/22/23 16:44: Urine Color Yellow, Urine Clarity Clear, Urine pH 6.0, Ur Specific [place] 1.015, Urine Protein Negative, Urine Glucose (UA) Normal, Urine Ketones Negative, Urine Occult Blood Negative, Urine Nitrite Negative, Urine Bilirubin Negative, Urine Urobilinogen Normal, Ur Leukocyte Esterase 25 H, Urine RBC 0 SEEN, Urine WBC 0-5 SEEN, Ur Squamous Epith Cells 0 SEEN, Urine Bacteria 0 SEEN, Urine Mucus RARE, Urine Yeast RARE Assessment & Plan Assessment/Plan (1) Debility: (2) Subcapital fracture of neck of right femur: (3) Status post open reduction and internal fixation (ORIF) of fracture: (4) Delirium: PLAN: Multi factorial....due to recent trauma/pain/narcotics/infection/dehydration. (5) Acute blood loss anemia: PLAN: Was transfused at [facility]. (6) Tachycardia: PLAN: More likely than not secondary to dehydration (7) Dehydration: (8) Recent urinary tract infection: PLAN: Treated with antibiotics. Infection was due to Proteus mirabilis. (9) 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: PLAN: See the hx of the CC. PLAN: Plan PLAN PT for gait stability OT for ADL's ST for evaluation - for confusion Analgesics as needed - Continue tramadol 50 mg p.o. every 8 hours. She is a little drowsy today but I suspect that she has been sleep deprived due to confusion and hallucinations. Creatinine clearance is greater than 30 show there is no need for adjustment of this medication at this time but if she continues to be drowsy over the next couple days will decrease to 50 mg every 12 hours. Continue scheduled Tylenol every 8 hours. Bowel protocol Fall precautions Assess for Anxiety/Depression GI prophylaxis with Protonix 40 mg once daily given complaint of nausea. DVT prophylaxis with SRIKANTH hose and SCDs. If the HGB on Sunday is stable and the heme stool is negative will transition to Lovenox Follow up with orthopedics and PCP following DC from TCU BMP, albumin, CBC without differential, TSH, PTH, magnesium and phosphorus on Sunday. Vitamin D level was within normal limits at [facility]. Etiology of severe osteoporosis? Continue alendronate at this time but if she has continued nausea and especially if she complains of heartburn will transition to a different drug to treat osteoporosis. This patient may benefit from a once yearly injection for treatment of osteoporosis. Hydrate with D5 half-normal saline with 10 mEq of KCl at 75 cc/h x 2 L. I called and updated her dtr on how she is doing. Charges/Coding Visit Charges Inpatient E&M: 61964 SNF Init L2
[2023-04-23 14:15] VITALS: TEMP 36.3
[2023-04-23] MEDS: Potassium Chloride 10 MEQ in Dext 5%-0.45% NS 1,000 ML 75 MEQ IV (15:03)
--- NOTE | 2023-04-23 17:04 | NURSING ---
Dr. Mark in to evaluate pt today, received following new orders: scheduled Protonix and PRN Zofran for nausea, IV fluids for dehydration, thigh high SRIKANTH hose and SCD's, HOLD ASPIRIN, and fecal occult blood test. See H&P for more details.
[2023-04-23] MEDS: Sertraline 50 MG Tablet PO (20:48)
[2023-04-24] MEDS: Potassium Chloride 10 MEQ in Dext 5%-0.45% NS 1,000 ML 75 MEQ IV (04:38)
[2023-04-24] MEDS: Ensure Plus High Protein 120 ML LIQUID PO ×3 (04:40→20:52)
[2023-04-24] MEDS: traMADol 50 MG Tablet PO ×2 (04:40→17:30)
[2023-04-24] MEDS: Acetaminophen 500 MG Tablet 1000 MG PO ×3 (04:41→20:52)
[2023-04-24] MEDS: Juven (unflavored) Packet 1 PACKET PO ×2 (10:17→17:29)
[2023-04-24] MEDS: Pantoprazole Sodium 40 MG Tablet PO (10:18)
[2023-04-24] MEDS: Cefadroxil 500 MG CAPSULE PO ×2 (10:18→20:52)
[2023-04-24] MEDS: Senna/Docusate Sodium 1 Tablet PO ×2 (10:19→20:50)
[2023-04-24] MEDS: Miconazole Nitrate 43 GM Bottle 1 APPLIC TOPICAL ×2 (10:27→20:53)
[2023-04-24] MEDS: Ferrous Sulfate 325 MG Tablet PO (11:26)
--- NOTE | 2023-04-24 12:00 | NURSING ---
Offered Covid vaccine, VIS provided. Patient refuses at this time.
[2023-04-24 13:25] VITALS: PULSE 86; RESP 18; O2SAT 95
[2023-04-24 13:40] LABS: Pathologist Review Reviewed
[2023-04-24 14:00] VITALS: BMI 29.0
--- NOTE | 2023-04-24 14:23 | PHA.CONS_ITS ---
Documented by User: Brandon Gupta 04/24/23 15:00 TCU RX Drug Regimen Review Subjective/Objective Subjective/Objective: Subjective: Bernadette Segura, is a 82 F with a past medical history of anemia, prior right hip arthroplasty, S/P R subcapital femoral neck fracture with subsequent ORIF here for strengthening and rehabilitation prior to discharge. Objective: Allergies oxycodone Allergy (Severe, Verified 04/21/23 13:45) ALTERED MENTAL STATUS Sulfa (Sulfonamide Antibiotics) Allergy (Unknown, Verified 04/21/23 13:45) Hives hydrocodone Allergy (Verified 04/21/23 13:45) Other ALTERED MENTAL STATUS Current Medications Generic Name Dose Route Start Last Admin Trade Name Freq PRN Reason Stop Dose Admin Acetaminophen 1,000 mg 04/22/23 15:00 04/24/23 13:20 Acetaminophen 500 Mg Tablet PO 1,000 mg Q8 OFELIA Administration Alendronate Sodium 70 mg 04/28/23 07:00 Alendronate Sodium 70 Mg Tablet PO Q7D@0700 OFELIA Aspirin 325 mg 04/21/23 22:00 04/23/23 08:30 Aspirin 325 Mg Tablet PO 325 mg BID OFELIA Administration Cefadroxil 500 mg 04/21/23 22:00 04/24/23 10:18 Cefadroxil 500 Mg Capsule PO 04/26/23 10:00 500 mg BID OFELIA Administration Ferrous Sulfate 325 mg 04/22/23 12:00 04/24/23 11:26 Ferrous Sulfate 325 Mg Tablet PO 325 mg QODAY@1200 OFELIA Administration Potassium Chloride 10 meq/ 1,005 mls @ 75 mls/hr 04/23/23 13:30 04/24/23 04:38 Dextrose/Sodium Chloride IV 04/24/23 16:17 75 mls/hr .[id number] OFELIA Administration L-Arginine/L-Glutamine/Calcium HMB 1 packet 04/22/23 17:00 04/24/23 10:17 Demarcus (Unflavored) Packet PO 1 packet BIDCM OFELIA Administration Miconazole Nitrate 1 applic 04/22/23 10:00 04/24/23 10:27 Miconazole Nitrate 43 Gm Bottle TOPICAL 1 applic BID OFELIA Administration Protocol Nutritional Formula (Lactose Free) 120 ml 04/22/23 17:00 04/24/23 11:29 Ensure Plus High Protein 120 Ml Liquid PO 120 ml 4X/DAY OFELIA Administration Ondansetron HCl 4 mg 04/23/23 12:56 Ondansetron Odt 4 Mg Tablet PO Q8H PRN PRN Nausea/vomiting Pantoprazole Sodium 40 mg 04/23/23 14:00 04/24/23 10:18 Pantoprazole Sodium 40 Mg Tablet PO 40 mg DAILY OFELIA Administration Polyethylene Glycol 17 gm 04/22/23 10:00 04/24/23 10:18 Polyethylene Glycol 3350 17 Gm Packet PO Not Given DAILY OFELIA Senna/Docusate Sodium 1 tablet 04/21/23 22:00 04/24/23 10:19 Senna/Docusate Sodium 1 Tablet PO 1 tablet BID OFELIA Administration Sertraline HCl 50 mg 04/21/23 20:00 04/23/23 20:48 Sertraline 50 Mg Tablet PO 50 mg DAILY@1999 OFELIA Administration Sodium Chloride 10 - 40 ml 04/24/23 07:00 0.9% Saline Lock 10 Ml Syringe IV UD PRN SALINE FLUSH Tramadol HCl 50 mg 04/22/23 13:50 04/24/23 04:40 Tramadol 50 Mg Tablet PO 50 mg Q6H PRN PRN Administration Pain Score 4-10 Tuberculin PPD 0.1 ml 04/29/23 10:00 Tuberculin,Purif.Prot.Deriv. 50 Tu/Ml Vial ID 04/29/23 10:01 X1 ONE Problem List (Updated 04/23/23 @ 12:[address] 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) Recent urinary tract infection (Acute) Debility (Acute) Subcapital fracture of neck of right femur (Acute) Acute blood loss anemia (Acute) Delirium (Acute) Vital Signs Temp Pulse Resp BP Pulse Ox O2 Del Method 97.3 F L 79 16 140/71 H 97 Room Air 04/23/23 14:15 04/23/23 08:21 04/23/23 08:21 04/23/23 08:21 04/23/23 08:21 04/23/23 10:00 Oxygen Delivery Method Room Air Weight: 65.317 kg Body Mass Index (BMI) 26.4 Sodium 139 mmol/L (136-145) 04/22/23 06:03 Potassium 3.5 mmol/L (3.5-5.1) 04/22/23 06:03 Chloride 107 mmol/L (98-107) 04/22/23 06:03 Carbon Dioxide 26.0 mmol/L (21.0-32.0) 04/22/23 06:03 Anion Gap 6 (5-15) 04/22/23 06:03 BUN 15 mg/dL (7-18) 04/22/23 06:03 Creatinine 0.71 mg/dL (0.55-1.02) 04/22/23 06:03 Est GFR (MDRD) Af Amer 101 mL/min (>60) 04/22/23 06:03 Est GFR (MDRD) Non-Af 84 mL/min (>60) 04/22/23 06:03 BUN/Creatinine Ratio 21.1 RATIO (10-20) H 04/22/23 06:03 Glucose 113 mg/dL (74-106) H 04/22/23 06:03 Assessment/Plan: 1. Pain: Acetaminophen 1000 mg PO Q8H, tramadol 50 mg PO Q6H PRN pain. The patient has used 4 doses of PRN tramadol this admission. Please continue to monitor for pain, PRN medication usage, LFTs (no recent LFTs), renal function (serum creatinine = 0.71 mg/dL with creatinine clearance ~ 34 on 04/22/23), for constipation, drowsiness, dizziness, syncope/ataxia and falls. 2. Bowel: senna/docusate 1 tablet PO BID, polyethylene glycol 17 grams PO daily. The patient does not have a bowel movement documented yet this admission. Please continue to monitor for diarrhea, constipation, and bowel movements. Please consider adding a PRN medication for constipation such as magnesium citrate 300 mL PO daily PRN constipation as the patient has not had a bowel movement yet. 3. Urinary tract infection: cefadroxil 500 mg PO BID through 04/26/23. Please continue to monitor for s/s of a urinary tract infection such as dysuria, urgency and frequency as well as for diarrhea, renal function (serum creatinine = 0.71 mg/dL with creatinine clearance ~ 34 on 04/22/23), white blood cell count (WBC = 7.8 K/mm# on 04/22/23) and for fevers (recent temps = 97.3-98.4 F). 4. Nausea/GI distress: pantoprazole 40 mg PO daily, ondansetron 4 mg PO Q8H PRN nausea. The patient has not required any PRN doses of ondansetron yet this admission. Please continue to monitor for GI distress, nausea, PRN medication usage, diarrhea that could indicate clostridium difficile infection, and s/s of bone resorption such as fractures. As the patient currently is in the hospital d/t a fracture and the documented indication for her pantoprazole is GI prop hylaxis, consider changing to another medication such as PRN calcium carbonate to decrease chance of contributing to future fractures. 5. Dehydration: dextrose 5%/0.45% sodium chloride with 10 mEq KCl @ 75 mL/hr x 2 hours. Please continue to monitor hydration status, sodium levels (Na = 139 mmol/L on 04/22/23), and potassium levels (K = 3.5 mmol/L on 04/22/23). 6. Osteoporosis: alendronate 70 mg PO every 7 days. Please continue to monitor for s/s of osteoporosis such as fractures and bone pain, for pain in the jaw that could indicate osteonecrosis of the jaw, calcium levels (Ca = 9.4 mg/dL on 04/22/23), and for abdominal pain with administration. 7. Anemia: ferrous sulfate 325 mg PO every other day. Please continue to monitor hemoglobin levels (Hgb = 9.0 g/dL on 04/22/23), iron levels (no recent iron levels documented) and for GI distress with iron administration. Please consider ordering iron levels to assess repletion status. 8. Tinea corporis: miconazole nitrate 1 application topically BID. Please continue to monitor for resolution of tinea corporis. 9. Nutrition: Demarcus 1 pack PO BID with meals, ensure plush high protein 120 mL PO 4x/day. Please continue to monitor overall nutritional status. Assessment/Plan for indications treated with psychotropic medications: 1. Depression: sertraline 50 mg PO daily. Stable chronic long-term therapy, GDR not recommended. Please continue to monitor for depression, SI, sodium levels (Na = 139 mmol/L on 04/22/23), for GI distress, for s/s of serotonin syndrome, drowsiness, dizziness and dry mouth. Medical chart and medication regimen reviewed. The following medication irregularities or issues were identified: 1. Bowel: senna/docusate 1 tablet PO BID, polyethylene glycol 17 grams PO daily. Please consider adding a PRN medication for constipation such as magnesium citrate 300 mL PO daily PRN constipation as the patient has not had a bowel movement yet. 2. Nausea/GI distress: pantoprazole 40 mg PO daily, ondansetron 4 mg PO Q8H PRN nausea. As the patient currently is in the hospital d/t a fracture and the documented indication for her pantoprazole is GI prophylaxis, consider changing to another medication such as PRN calcium carbonate to decrease chance of contributing to future fractures. Date Date of Note:: 04/24/23 Documented by User: Dr. Anderson Munoz MD 05/02/23 07:01 TCU RX Drug Regimen Review Provider Comments Provider responsibility Provider Comments to Recommendations by Pharmacy: Agree
[2023-04-24 15:38] VITALS: BP 156/76; PULSE 80; RESP 16; TEMP 36.9; O2SAT 98
--- NOTE | 2023-04-24 16:33 | CASEMGMT ---
Social Work: SW met with pt to complete initial assessment. Introduced self and role. Verified contacts which include 2 daughters who assist, and 4 sons, all living in the area. Educated to [facility] benefit and coverage, including continued stay is not guaranteed. Plan: Pt's goal is to return home alone with family and TIRE MOLD ENGRAVER friend to assist. SW will continue to follow for DC planning. BRIAN Boss
[2023-04-24] MEDS: Sertraline 50 MG Tablet PO (20:50)
[2023-04-25] MEDS: Ensure Plus High Protein 120 ML LIQUID PO ×3 (05:39→20:54)
[2023-04-25] MEDS: Acetaminophen 500 MG Tablet 1000 MG PO ×3 (05:40→20:51)
[2023-04-25 06:30] VITALS: O2SAT 94
[2023-04-25 07:38] LABS: Hematocrit 26.9 % (37-47); Hemoglobin 8.3 g/dL (12.0-15.0); Mean Corp Hgb Conc 30.9 g/dL (32-36); Mean Corpuscular Hgb 28.4 pg (27.0-32.0); Mean Corpuscular Volume 92.1 fL (81-99); Mean Platelet Vol. 9.4 fl (6.2-12.0); Platelet Count 445 K/mm3 (150-450); RBC Distribution Width CV 15.3 % (11.6-14.6); RBC Distribution Width SD 49.3 fl (35.1-43.9); Red Blood Count 2.92 M/mm3 (4.2-5.4); White Blood Count 7.6 K/mm3 (4.4-11.0)
[2023-04-25 08:17] LABS: Albumin, Serum 2.4 g/dL (3.2-5.0); Anion Gap 5 (5-15); BUN 24 mg/dL (7-18); BUN/Creat Ratio 34.1 RATIO (10-20); Calcium,Total 9.3 mg/dL (8.5-10.1); Chloride 108 mmol/L (98-107); EST Glomerular Filtration Rate 84 mL/min (>60); Est Glom Filt Rate - Afr Amer 102 mL/min (>60); Estimated Creatinine Clearance 33.71 ml/min; Glucose 99 mg/dL (74-106); Magnesium 2.4 mg/dL (1.6-2.6); Phosphorus 3.4 mg/dL (2.5-4.9); Potassium 3.6 mmol/L (3.5-5.1); Sodium Level 138 mmol/L (136-145); Thyroid Stim Hormone (TSH) 1.88 uIU/mL (0.358-3.74)
[2023-04-25] MEDS: Juven (unflavored) Packet 1 PACKET PO ×2 (09:02→17:50)
[2023-04-25] MEDS: Cefadroxil 500 MG CAPSULE PO ×2 (09:02→20:51)
[2023-04-25] MEDS: Pantoprazole Sodium 40 MG Tablet PO (09:03)
[2023-04-25] MEDS: Polyethylene Glycol 3350 17 GM PACKET PO (09:03)
[2023-04-25] MEDS: Senna/Docusate Sodium 1 Tablet PO (09:04)
[2023-04-25] MEDS: Miconazole Nitrate 43 GM Bottle 1 APPLIC TOPICAL ×2 (09:12→20:52)
[2023-04-25 09:25] LABS: PTHIN 9.7 pg/mL (18.4-80.1)
--- NOTE | 2023-04-25 11:53 | NURSING ---
PT AND PT FAMILY UPDATED ON A PT TESTING POSITIVE FOR COVID. ALSO UPDATED DAUGHTER ON POSITIVE BLOOD IN STOOL AND WAS NOTIFIED. STATED TO DAUGHTER WE WOULD UPDATE HER ON ANY THING NEW. DAUGHTER THANKED THIS NURSE.
--- NOTE | 2023-04-25 13:31 | NURSING ---
LEFT KNOW ABOUT PT DRAINAGE TO LEFT HIP. DR. LIZARRAGA IN TO SEE PT.
[2023-04-25] MEDS: 0.9% Saline Lock 10 ML Syringe IV (14:16)
--- NOTE | 2023-04-25 15:15 | NURSING ---
Preschool Assistant Principal Note; Activity Asset: Florencio Fleming is independent in her choice of daily activities. At this time she prefers to rest in her room over group. Bernadette will watch tv, read the paper and visit with family and friends. She welcomes visit from the nib inspector but not therapy dog. Staff will continue to remind her of daily in room and group activities and respect her right to say no.
[2023-04-25 16:00] VITALS: BP 150/65; PULSE 92; RESP 16; TEMP 37.1; O2SAT 97
[2023-04-25] MEDS: Sertraline 50 MG Tablet 100 MG PO (20:51)
[2023-04-25] MEDS: Dronabinol 2.5 MG Capsule PO (20:51)
[2023-04-26] MEDS: Ensure Plus High Protein 120 ML LIQUID PO (05:04)
[2023-04-26] MEDS: Acetaminophen 500 MG Tablet 1000 MG PO ×3 (05:04→21:16)
[2023-04-26] MEDS: Juven (unflavored) Packet 1 PACKET PO (08:40)
[2023-04-26] MEDS: Cefadroxil 500 MG CAPSULE PO (10:21)
[2023-04-26] MEDS: Pantoprazole Sodium 40 MG Tablet PO (10:21)
[2023-04-26] MEDS: Miconazole Nitrate 43 GM Bottle 1 APPLIC TOPICAL ×2 (10:23→21:16)
[2023-04-26] MEDS: Ferrous Sulfate 325 MG Tablet PO (11:53)
--- NOTE | 2023-04-26 11:55 | NURSING ---
Spoke with Dr Balderas's office, they will speak with him and ask if we can have xrays and staple removal completed in TCU d/t pt being a [facility] transfer. Waiting for call back.
[2023-04-26 13:52] VITALS: BP 157/74; PULSE 89; RESP 16; TEMP 36.2; O2SAT 96
[2023-04-26] MEDS: traMADol 50 MG Tablet PO (13:57)
[2023-04-26] MEDS: Sertraline 50 MG Tablet 100 MG PO (21:15)
[2023-04-26] MEDS: Dronabinol 2.5 MG Capsule PO (21:16)
--- NOTE | 2023-04-27 05:16 | NURSING ---
This nurse called 's cell number and left voicemail asking Doctor to call back for update on patient in abnormal reading.
[2023-04-27] MEDS: Acetaminophen 500 MG Tablet 1000 MG PO ×3 (05:18→21:02)
[2023-04-27] MEDS: Ensure Plus High Protein 120 ML LIQUID PO ×4 (05:18→21:00)
[2023-04-27] MEDS: Ondansetron ODT 4 MG Tablet PO (09:51)
--- NOTE | 2023-04-27 10:46 | MDS.RN ---
MDS pain assessment completed.
[2023-04-27] MEDS: traMADol 50 MG Tablet PO (12:12)
[2023-04-27] MEDS: Pantoprazole Sodium 40 MG Tablet PO (12:14)
[2023-04-27] MEDS: Senna/Docusate Sodium 1 Tablet PO ×2 (12:16→21:02)
[2023-04-27] MEDS: Miconazole Nitrate 43 GM Bottle 1 APPLIC TOPICAL ×2 (12:18→21:02)
--- NOTE | 2023-04-27 12:25 | NURSING ---
Addendum entered by Karishma Alonzo 05/02/23 12:48: Physician's transport unable to transport patient after 1pm. This RN called and changed appt to 0915 05/09/23 w/ RICO Enriquez at [place] office. Physician's then said they would not transport patient further than 25 miles. Called to update ortho office, awaiting return call on options. Original Note: Spoke with Dr. Balderas office regarding staple removal and ASA therapy. Radhika from office reports that cassandra will be removed at f/u appt and states they already have a follow-up appt set for 05/09/22 at 1415 and that they will review need for further ASA treatment.
[2023-04-27 13:27] VITALS: BP 141/66; PULSE 83; RESP 14; TEMP 36.6; O2SAT 94
--- NOTE | 2023-04-27 14:19 | NURSING ---
Daughter calls this nurse into room and expresses concern that patient has been lethargic today and nauseated. Discussed that PRN nausea medication was administered and that patient did not eat lunch but was able to finish ensure this afternoon. Also discussed medications and daughter concerned about antidepressant and was unaware patient was started on marinol. Requests that doctor be made aware that they would like to remove these meds if possible so that patient may be less lethargic. Daughter states patient was on no medications at home and can be sensitive new medications. DR. Mark to be made aware.
[2023-04-27] MEDS: Juven (unflavored) Packet 1 PACKET PO (17:34)
--- NOTE | 2023-04-27 17:59 | NURSING ---
Patient more alert tonight and denies nausea/upset stomach. She is upright, eating and making conversation. Daughter Vicki made aware of change and discuss holding her Marinol and Zoloft this evening and assessing lethargy in evening. Will pass on to evening shift.
[2023-04-27] MEDS: Dronabinol 2.5 MG Capsule PO (21:01)
[2023-04-27] MEDS: Sertraline 50 MG Tablet 100 MG PO (21:01)
[2023-04-28] MEDS: Alendronate Sodium 70 MG Tablet PO (05:21)
[2023-04-28] MEDS: Ensure Plus High Protein 120 ML LIQUID PO ×3 (05:21→18:12)
[2023-04-28] MEDS: Acetaminophen 500 MG Tablet 1000 MG PO ×3 (05:21→20:53)
[2023-04-28] MEDS: Ondansetron ODT 4 MG Tablet PO (08:25)
[2023-04-28] MEDS: Juven (unflavored) Packet 1 PACKET PO ×2 (09:02→17:32)
[2023-04-28] MEDS: Pantoprazole Sodium 40 MG Tablet PO (09:03)
[2023-04-28] MEDS: Senna/Docusate Sodium 1 Tablet PO (09:03)
[2023-04-28] MEDS: Miconazole Nitrate 43 GM Bottle 1 APPLIC TOPICAL ×2 (09:04→20:54)
[2023-04-28 10:00] VITALS: PULSE 86; RESP 18; O2SAT 96
[2023-04-28] MEDS: Ferrous Sulfate 325 MG Tablet PO (12:40)
[2023-04-28 15:50] VITALS: BP 122/48; PULSE 81; RESP 18; TEMP 36.5; O2SAT 97
--- NOTE | 2023-04-28 17:05 | NURSING ---
This nurse called pt. daughter and updated her on new orders and answered daughters questions. Daughter thanked this nurse for the updates on her mother.
[2023-04-28] MEDS: Loperamide 2 MG Capsule PO (17:32)
[2023-04-28 20:30] VITALS: BP 120/55; PULSE 85
[2023-04-28] MEDS: traMADol 50 MG Tablet PO (20:45)
[2023-04-28] MEDS: Sertraline 50 MG Tablet 100 MG PO (20:50)
[2023-04-29 05:18] LABS: Absolute Lymphocyte Count 1.11 X10^3/uL (0.83-4.51); Absolute Neutrophil Count 4.8 X10^3/uL (2.0-7.7); Basophil# 0.05 X10^3/uL; Basophil% 0.7 % (0-1); Eosinophil# 0.54 X10^3/uL; Eosinophils% 7.5 % (0-5); Hematocrit 26.6 % (37-47); Hemoglobin 8.1 g/dL (12.0-15.0); Lymphocyte # 1.11 X10^3/ul (0.83-4.51); Lymphocyte % 15.4 % (19-41); Mean Corp Hgb Conc 30.5 g/dL (32-36); Mean Corpuscular Hgb 28.5 pg (27.0-32.0); Mean Corpuscular Volume 93.7 fL (81-99); Mean Platelet Vol. 9.4 fl (6.2-12.0); Monocyte# 0.61 X10^3/uL; Monocyte% 8.4 % (0-10); NRBC Flagged by Analyzer 0 % (0-5); Neutrophil % 66.5 % (47-70); Platelet Count 367 K/mm3 (150-450); RBC Distribution Width SD 54.9 fl (35.1-43.9); Red Blood Count 2.84 M/mm3 (4.2-5.4); White Blood Count 7.2 K/mm3 (4.4-11.0)
[2023-04-29 05:34] LABS: Anion Gap 4 (5-15); BUN 24 mg/dL (7-18); BUN/Creat Ratio 33.7 RATIO (10-20); Calcium,Total 8.5 mg/dL (8.5-10.1); Chloride 108 mmol/L (98-107); Creatinine, Serum 0.71 mg/dL (0.55-1.02); EST Glomerular Filtration Rate 83 mL/min (>60); Est Glom Filt Rate - Afr Amer 101 mL/min (>60); Estimated Creatinine Clearance 33.71 ml/min; Glucose 101 mg/dL (74-106); Potassium 3.6 mmol/L (3.5-5.1); Sodium Level 140 mmol/L (136-145)
[2023-04-29] MEDS: Ensure Plus High Protein 120 ML LIQUID PO ×3 (06:05→22:48)
[2023-04-29] MEDS: Acetaminophen 500 MG Tablet 1000 MG PO ×3 (06:05→22:49)
[2023-04-29] MEDS: Juven (unflavored) Packet 1 PACKET PO (08:15)
[2023-04-29] MEDS: Miconazole Nitrate 43 GM Bottle 1 APPLIC TOPICAL ×2 (08:16→22:50)
[2023-04-29] MEDS: Pantoprazole Sodium 40 MG Tablet PO (08:16)
[2023-04-29 10:00] VITALS: PULSE 88; RESP 18; O2SAT 95
[2023-04-29] MEDS: Tuberculin,Purif.prot.deriv. 50 TU/ML Vial 0.100000000000000006 ML ID (11:25)
[2023-04-29 14:03] VITALS: BP 125/62; PULSE 60; RESP 18; TEMP 36.7; O2SAT 96
[2023-04-29] MEDS: Sertraline 50 MG Tablet 100 MG PO (22:49)
[2023-04-30] MEDS: Ensure Plus High Protein 120 ML LIQUID PO ×4 (06:00→21:08)
[2023-04-30] MEDS: Acetaminophen 500 MG Tablet 1000 MG PO ×3 (06:01→21:08)
[2023-04-30] MEDS: Juven (unflavored) Packet 1 PACKET PO ×2 (09:22→17:50)
[2023-04-30] MEDS: Pantoprazole Sodium 40 MG Tablet PO (09:24)
[2023-04-30] MEDS: Miconazole Nitrate 43 GM Bottle 1 APPLIC TOPICAL ×2 (09:25→21:09)
[2023-04-30] MEDS: Ferrous Sulfate 325 MG Tablet PO (11:58)
[2023-04-30 13:28] VITALS: BP 118/57; PULSE 76; RESP 16; TEMP 36.4; O2SAT 97
[2023-04-30 20:20] VITALS: PULSE 89; RESP 16; O2SAT 95
[2023-04-30] MEDS: Sertraline 50 MG Tablet 100 MG PO (21:08)
[2023-05-01] MEDS: Ensure Plus High Protein 120 ML LIQUID PO ×3 (05:31→20:36)
[2023-05-01] MEDS: Acetaminophen 500 MG Tablet 1000 MG PO ×3 (05:31→20:35)
[2023-05-01] MEDS: Juven (unflavored) Packet 1 PACKET PO ×2 (07:58→17:15)
[2023-05-01] MEDS: Pantoprazole Sodium 40 MG Tablet PO (07:59)
[2023-05-01] MEDS: Miconazole Nitrate 43 GM Bottle 1 APPLIC TOPICAL ×2 (07:59→20:36)
--- NOTE | 2023-05-01 09:46 | CASEMGMT ---
Social Work SW attempted to complete MDS assessment on 04/27, but pt is unable to be aroused. SW completed MDS assessment this date. Upon entry, pt was asking about finding her TV remote, describing it as a wooden board. SW offered to locate pt a new remote, and asked if assessment could be completed. Pt agreed. Pt scored 11/15 on BIMS (was accurate with 2023 and April) and PHQ-9 (). SW explored positive responses with depressive symptoms. Pt explained she has been hallucinating at night, but understands in the morning, the dreams were not real. Pt states she thinks that is happening d/t to medications she takes at night. SW offered to relay to nursing and Dr. Rafiq appreciative. SW verbally updated Dr. Brigette Corbin, ATHLETIC INSTRUCTOR FARM MANAGEMENT ADVISER
[2023-05-01 10:00] VITALS: RESP 18
--- NOTE | 2023-05-01 10:35 | NURSING ---
Knot Tying Operator Note; MDS for 04/28/2023 Complete
[2023-05-01 12:32] VITALS: BMI 26.9
[2023-05-01 13:33] VITALS: BP 121/52; PULSE 94; RESP 18; TEMP 36.2; O2SAT 96
--- NOTE | 2023-05-01 14:13 | PCM.PROGNOTE ---
Subjective Subjective Afebrile VSS Maintaining appropriate oxygen saturation on RA Oral intake for fluids is very poor. Weight has increased from 144 lbs at admission to TCU to 147 lbs today. Discussed with nursing -she is incontinent of urine. Nursing and speech therapy reports that she is hallucinating (visual) more frequently and she is not sleeping well. That being said she is sleeping a lot during the day. Reviewed the PT/OT/ST notes Medication list reviewed. She is only taking 1 Tramadol 50 mg daily for pain. I reviewed her OARRS and she has not been prescribed any benzo's so this rules out withdrawal. She tells me she is tired and her pain is adequately controlled. she also tells me that she knows that she has had memory problems for a while . She admits to having visual hallucinations and she denies auditory hallucinations. She does not feel motivated to do therapy. she has not been eating well at meals but, when I offered her a cookie or a piece of cake that visitors brought in she got animated and picked a cookie to eat. she denies SOB, CP, dysuria, calf pain and FARRAR. She also tells me that she loses he balance easily and tends to fall backward. She has never seen a neurologist and denies ever being told she has dementia or PD. she has never seen a psychiatrist and denies any hx of mental illness. She was very willing to talk with me and she was very alert and pleasant. Objective Data Objective Data Vital Signs: Vital Signs Temp Pulse Resp BP Pulse Ox O2 Del Method 97.2 F L 94 18 121/52 H 96 Room Air 05/01/23 13:33 05/01/23 13:33 05/01/23 13:33 05/01/23 13:33 05/01/23 13:33 05/01/23 13:33 Oxygen Delivery Method Room Air Weight: 147 lb 1.6 oz Body Mass Index (BMI) 26.9 Intake & Output: Intake and Output for Last 24 Hours 04/29/23 04/30/23 05/01/23 23:59 23:59 23:59 Intake Total 480 / 480 900 / 900 240 / 240 Balance 480 / 480 900 / 900 240 / 240 Lab / Micro Data 04/29/23 04:43 04/29/23 04:43 Micro: Microbiology 05/01/23 05:29 Nasal Secretion SARS-CoV-2 Antigen (Rapid) - Final 04/25/23 11:50 Nasal Secretion SARS-CoV-2 Antigen (Rapid) - Final 04/25/23 09:50 Stool Stool Occult Blood (DORIE) - Final Occult Blood Positive Physical Exam Const alert and no apparent distress Constitutional Narrative: She is lying in bed and she was visiting with friends when I entered the room. 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 she has a hard time staying focused and when she can not remember the answer to a question I have asked she changes the subject or says we can come back to that . she knows that the date is written on the [employer] board and knows to look there for answers to orientation questions. She was able to tell me it is April but, she could not recall the year and made several wrong guesses and then she would come back to that. She knew the president is Alvaro Bonilla but, could not tell me the name of the current governor of [place]. She has very little fascial expression and decreased blink. She has no resting tremor and no rigidity or bradykinesia. Short term memory is poor but, she could tell me about her and their marriage. She tells me that he had rages. Her performance with ST varies widely from day to day. She is able to follow simple commands. General Appearance: cooperative HEENT normocephalic and head/scalp atraumatic Mouth: dry mucous membranes Eyes EOMs intact bilaterally Neck No nuchal rigidity General: trachea midline Resp normal respiratory effort and clear to auscultation bilaterally Effort and Inspection: Negative for tachypneic, respiratory distress or labored Cardio regular rate, regular rhythm, S1 normal heart sound, S2 normal heart sound, no murmurs, no rub and no gallops Cardio Narrative: Resting heart rate is mildly increased and this is more likely than not secondary to intravascular volume depletion and poor oral intake. GI normal to inspection, nondistended, normoactive bowel sounds, soft to palpation and non-tender GI Narrative: No guarding with palpation Extremity no calf tenderness General Extremity: edema right (Mild swelling in the dependent portions of the right upper thigh. No ankle edema.) Skin Rashes: no rashes Wound Narrative: She has serous drainage from the wound/incision in the right hip area but there is no purulent discharge, no bleeding and no odor. There is no eliel-incisional erythema and no dehiscence. Neuro CN's II-XII intact bilaterally and no focal motor deficits Psych cooperative Psych Narrative: pleasant, having visual hallucinations. Assessment & Plan Assessment/Plan (1) Debility: (2) Subcapital fracture of neck of right femur: (3) Status post open reduction and internal fixation (ORIF) of fracture: (4) Delirium: (5) Acute blood loss anemia: (6) Tachycardia: (7) Dehydration: (8) Recent urinary tract infection: (9) 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: (10) Visual hallucinations: (11) Cognitive dysfunction: PLAN: Plan 1. Continue therapy 2. NC CTB today for declining mental status with hallucinations. 3. Straight cath for complete UA today. After the above testing is resulted D/W family. 5. We do not have a psychologist or psychiatrist to consult. I do not think she has a psychiatric illness. I think she has underlying dementia and with the transition from 1 hospital to another and then to a SNF coupled with dehydrations, pain medication, new faces she doesn't know and poor nutrition she has decompensated. Her dtr told me that she has though for a while her mother has dementia but, she is never this bad when she is at home. I do not think we should start a dementia drug because acutely it will not help and it may lead to GI distress and even worse oral intake. She has perked up with the increase in the sertraline. she is more conversant and awake during the day now. I think the confusion is worse because she is dehydrated. Will order IV fluids for her. I think she is just going require more time to start improving. If we transfer to yet another facility she will decompensate again so would prefer to keep her on TCU for now. I updated her dtr Vicki on the phone and answered questions. she is a little overwhelmed with the situation but has a better understanding of why dementia patients decompensate. Charges/Coding Visit Charges Inpatient E&M: 03554 SNF Subs L2
--- NOTE | 2023-05-01 14:52 | NURSING ---
LICENSE DISTRIBUTOR reported to RN that patient was found sitting near edge of bed and when asked what she was doing she replied trying to get up. LICENSE DISTRIBUTOR and speech therapist reporting patient having increased confusion today. Dr Mark notified, new orders received including UA. Straight cath done per order for UA. Bed alarm placed for patient's safety.
[2023-05-01 14:55] LABS: Bacteria 0 SEEN /hpf (None Seen); Mucous, Urine 0 SEEN /hpf (<or=2+); Red Blood Cells-Urine 0 SEEN /hpf (0-5); Squamous Epithelial Cells - UA 0 SEEN /hpf (5-10); White Blood Cells 0 SEEN /hpf (0-5)
[2023-05-01 14:56] LABS: Color, Urine Yellow (Yellow); Glucose, Dipstick Normal (Normal); Ketone-Dipstick Negative (Negative); Leukocyte Esterase-Dipstick Negative /ul (Negative); Nitrite-Dipstick Negative (Negative); Occult Blood-Urine Negative /ul (Negative); Protein-Dipstick Negative (Negative); Urine Bilirubin Dipstick Negative (Negative); Urine Clarity Clear (Clear); Urine Urobilinogen Normal (Normal)
--- NOTE | 2023-05-01 16:16 | NURSING ---
Written order received from Dr. Mark for head CT without contrast for acute mental status change. Per insurance company auth needed. Transferred to [facility], case#[id number]. They will review and fax approval or request for clinical documentation.
[2023-05-01] MEDS: Lactated Ringers 1,000 ML 60 ML IV (20:30)
[2023-05-01] MEDS: Sertraline 50 MG Tablet 100 MG PO (20:35)
[2023-05-02] MEDS: Ensure Plus High Protein 120 ML LIQUID PO ×3 (05:12→17:25)
[2023-05-02] MEDS: Acetaminophen 500 MG Tablet 1000 MG PO ×3 (05:12→21:25)
[2023-05-02 05:51] LABS: Hematocrit 26.2 % (37-47); Hemoglobin 8.1 g/dL (12.0-15.0)
[2023-05-02] MEDS: Juven (unflavored) Packet 1 PACKET PO ×2 (08:49→17:25)
[2023-05-02] MEDS: Pantoprazole Sodium 40 MG Tablet PO (08:59)
[2023-05-02] MEDS: Miconazole Nitrate 43 GM Bottle 1 APPLIC TOPICAL ×2 (09:00→21:25)
[2023-05-02] MEDS: Ferrous Sulfate 325 MG Tablet PO (13:22)
--- NOTE | 2023-05-02 14:29 | CASEMGMT ---
Social Work IDT met with patient and dtr, Vicki, for care plan meeting. Pt listened and awake for majority of meeting, but did fall asleep at one point. Discussed patient's progress in PT/OT/ST/SN. Educated to [facility] insurance with NRD 1/3 and continued stay is not guaranteed with each review. Cautioned insurance reviewer did note pt may not be extended for further time. IDT is recommending SNF d/t kayla lift and x2-3 assist with all ADLs. During explanation from each discipline, SW noted dtr kindly provided reasons to why pt may not be functioning or performing well, such she was like this before . SW and IDT observed dtr having difficulty with realistic goals and future improvements with pt. SW dismissed the rest of the team after all questions were answered and spoke with dtr and pt 1:1. SW referred back to information given from IDT on her lack of appetite, weight loss that qualifies pt for artificial nutrition, lack of ability to show improvement in therapy, high LOC with ADLs. SW also reinforced dtr's words describing pt to team that her eyes look - not life in them , pt is not thriving , and dtr expressed she hopes pt is not giving up . SW broached topic of IDT recommendations for hospice services for pt. Educated to hospice services in regards to comfort focused care, no life sustaining medical treatment including IVF and therapy, and what hospice care is like in a SNF and financial liability with SNF stay and coverage of hospice by insurance. Dtr taken aback by information and asked if pt was dying, stating pt is not sick, she just broke her leg . SW remained compassionate to difficulty of information and current state of pt. Provided ongoing education of hospice services and how that applies to pt's condition. Explained pt's do not have to be sick to be on hospice. Acknowledged the visualization most have when looking at a hospice patient but with pt's cognitive state, lack of nutrition and fluids, and failing to thrive, pt is appropriate for comfort measures and quality of life with hospice services. Reiterated explanation from Dr and ST that pt may have been functioning well prior to injury and surgery and cognitively intact d/t being in own environment, same routine, known people, but since surgery and being out of routine and environment, pt is no longer able to 'cover up' cognitive deficits, as often pts tend to do and families do not notice. After much discussion on hospice services and pt's current condition, dtr inquired about DC plans. LONNIE provided printed list of SNFs in [facility] with quality and resource data via CarePort Guide for dtr to provide choices for this worker to make referrals. Offered to provide lists of other counties. Dtr stated she is initially interested in [facility] and [facility], but acknowledged [facility] has a waitlist. SW offered to place referrals to both regardless. Dtr to discuss information with other 5 siblings but stated pt can pay privately, as she will not initially qualify for Medicaid d/t owning more than one property. At this time, pt has been awake for the conversation and asked for water. Pt was able to engage in short conversation appropriately and state she understood what was being discussed, I'm in here . Dtr stated I know you are mom. I need you come out and play more often . SW requested pt repeat back information to clarify acknowledgement of conversation. Pt accurately stated the hospice and SNF discussion. Dtr asked pt what course of treatment pt would prefer. Pt became tearful and overall said, she knows her children want her live and fight, but pt expressed being done , spent , tired and concluded she wants to focus on comfort and quality of life vs quantity of life . Pt she has lived 82 year, raised 6 children, and is tired. Dtr and pt both emotional with these conversations, and dtr initially having difficulty accepting pt's statements. Pt repeated wishes. SW intervened and validated the emotions involved in these decisions, but now that pt has repeatedly and clearly stated hospice care is her wish, family and IDT will respect those moving forward. Dtr expressed understanding and agreed to shift focus to finding a SNF for DC. Pt stated she is agreeable to SNF stay, as long as she can rest . Dtr and this worker confirmed. At this time, pt was scheduled for therapy session, and this worker noted that, but immediately became tearful and said I don't want to do it . SW expressed understanding and offered for therapy to come in and if did not want to continue, she did not have to, but dtr was planning on staying for the session. Dtr began encouraging pt to participate as this worker exited the room. LONNIE updated therapists on plan as well as Dr. FLEMING placed referral to [facility] via [facility]. LONNIE phoned [facility] and confirmed there is a long waitlist. Time spent with pt and dtr: One hour KIN Bynum
[2023-05-02 15:05] VITALS: BP 124/57; PULSE 93; RESP 18; TEMP 36.9; O2SAT 95
[2023-05-02] MEDS: Lactated Ringers 1,000 ML 60 ML IV (15:09)
[2023-05-02] MEDS: Sertraline 50 MG Tablet 100 MG PO (21:25)
[2023-05-02 21:40] VITALS: PULSE 94; RESP 16; O2SAT 95
[2023-05-03] MEDS: Acetaminophen 500 MG Tablet 1000 MG PO ×3 (05:13→20:27)
[2023-05-03] MEDS: Ensure Plus High Protein 120 ML LIQUID PO ×3 (05:13→17:11)
[2023-05-03 05:57] LABS: Hemoglobin 8.2 g/dL (12.0-15.0)
[2023-05-03 06:23] LABS: Anion Gap 4 (5-15); BUN 25 mg/dL (7-18); BUN/Creat Ratio 35.5 RATIO (10-20); Calcium,Total 8.4 mg/dL (8.5-10.1); Chloride 108 mmol/L (98-107); EST Glomerular Filtration Rate 84 mL/min (>60); Est Glom Filt Rate - Afr Amer 102 mL/min (>60); Estimated Creatinine Clearance 33.71 ml/min; Glucose 104 mg/dL (74-106); Potassium 3.7 mmol/L (3.5-5.1); Sodium Level 138 mmol/L (136-145)
[2023-05-03] MEDS: Pantoprazole Sodium 40 MG Tablet PO (08:05)
[2023-05-03] MEDS: Miconazole Nitrate 43 GM Bottle 1 APPLIC TOPICAL ×2 (08:05→20:27)
[2023-05-03] MEDS: Juven (unflavored) Packet 1 PACKET PO ×2 (08:05→17:18)
[2023-05-03] MEDS: traMADol 50 MG Tablet PO (08:11)
[2023-05-03 08:15] VITALS: RESP 18; O2SAT 94
[2023-05-03 08:21] LABS: Vitamin B12 252 pg/mL (211-911)
[2023-05-03 08:23] VITALS: BP 142/68; PULSE 88
[2023-05-03] MEDS: Lactated Ringers 1,000 ML 60 ML IV (09:11)
--- NOTE | 2023-05-03 10:20 | MDS.RN ---
Information for the mds was obtained from review of the clinical record, interview of resident, staff, and direct observation of resident's care.
--- NOTE | 2023-05-03 10:39 | NURSING ---
Forensic Audit Expert Note; during [facility] meeting family stated resident usually has TV on [employer] or game Shows during the day to listen to, please turn TV on at breakfast for her
[2023-05-03 13:22] VITALS: TEMP 36.2
--- NOTE | 2023-05-03 15:37 | NURSING ---
Daughters in room, per them Dr Balderas's office reached out and will do video call on 05/09/23 @0930. They requested the office call dtr Vicki. This RN called office and asked if MD wanted any imaging done and reported swelling to upper right leg and continued drainage from top incision site. They will notify MD and call TCU with any orders. Gave them daughter Vicki's phone number to call for phone visit.
[2023-05-03] MEDS: Sertraline 50 MG Tablet PO (20:29)
[2023-05-04] MEDS: Lactated Ringers 1,000 ML 60 ML IV ×2 (02:46→19:58)
[2023-05-04] MEDS: Acetaminophen 500 MG Tablet 1000 MG PO ×3 (05:18→20:52)
[2023-05-04 05:46] LABS: Hematocrit 26.9 % (37-47); Hemoglobin 8.2 g/dL (12.0-15.0)
[2023-05-04] MEDS: Juven (unflavored) Packet 1 PACKET PO ×2 (09:01→17:22)
[2023-05-04] MEDS: Pantoprazole Sodium 40 MG Tablet PO (09:01)
[2023-05-04] MEDS: Miconazole Nitrate 43 GM Bottle 1 APPLIC TOPICAL ×2 (09:01→20:52)
[2023-05-04] MEDS: Ferrous Sulfate 325 MG Tablet PO (11:55)
--- NOTE | 2023-05-04 12:52 | NURSING ---
LEENA Salmon notified patient of covid positive staff member. This RN left VM with dtr updating her as well.
[2023-05-04] MEDS: Ensure Plus High Protein 120 ML LIQUID PO ×3 (13:06→20:52)
--- NOTE | 2023-05-04 13:21 | CASEMGMT ---
Social Work SW phoned dtr, Vicki, to follow up on DC planning and hospice conversation. SW updated dtr that [facility] has a long waitlist but [facility] can accept pt. SW explained the insurance is behind but anticipating hearing an outcome today, but cautioned it is anticipated for an EDC 05/07. Dtr stated [facility] may be too expensive and requested a referral to [facility], where pt was before. SW agreed. Dtr stated the family has not made a decision on pt continuing with therapy or hospice yet, and they most likely won't be ready to DC pt on 05/07 and would be okay to pay privately for an extra day. SW agreed to staying and paying privately. However, stated to dtr, respectfully the family does not have to make a decision on therapy or hospice as pt has made it clear multiple times her wishes are hospice services, and that wish will be honored. SW has made a referral to [facility] to pursue services at a SNF, and will schedule a time with dtr and pt to discuss services further in depth. Dtr expressed understanding. Dtr is at work today, but will contact this worker today or Sunday with family outcome on SNF. SW to keep dtr updated on [facility] and insurance. Referral placed to [facility] via [facility]. SW received outcome from insurance NRD 05/07 and NOMNC to be issued. SW phoned dtr to update. Dtr appreciative. SW updated both SNFs. Will continue to follow. Brigette Corbin, KIN TORRES
--- NOTE | 2023-05-04 15:41 | NURSING ---
TRAVIS FROM [facility] CALLED AND ASKED ABOUT PT AND HOW SHE WAS DOING. REPORTED TO HIM THAT PT STILL HAS MODERATE YELLOW/BLOODY DRAINAGE AND EDEMA TO MIDDLE OF INNER AND OUTER THIGH,NON PITTING. TRAVIS STATED THAT WELL THE DOCTOR WILL WANT TO SEE PT AT FOLLOW UP. THIS NURSE STATED TO TRAVIS THAT IT WAS UNDERSTOOD IN NOTES AND REPORT THAT WE WERE WAITING TO HEAR BACK FROM THEM ON IF WE COULD DO X RAYS HERE AND THAT THEY WERE DOING A VIDEO CALL ON 05/09/23. AND ALSO STATED PT IS STILL A QUIQUE AND WOULD NOT BE ABLE TO HANDLE A 2 HOUR RIDE TO [facility] DOWN AND A 2 HOUR RIDE BACK DUE TO PAIN. 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 TRAVIS STATED HE WOULD LET THE NURSE AND DOCTOR KNOW.
[2023-05-04 16:00] VITALS: BP 143/75; PULSE 91; RESP 20; TEMP 36.8; O2SAT 92
--- NOTE | 2023-05-04 16:15 | NURSING ---
Addendum entered by Karishma Alonzo 05/07/23 10:25: Photos taken and send to e-mail provided. Sent update with photos that swelling in RLE has improved and there is minimal serosanguineous drainage from top incision site. Original Note: TRAVIS FROM [facility] CALLED BACK AND STATED THE DOCTOR WANTS PICTURES TAKEN AND FAX TO THEM OF PT HIP. STATED TO TRAVIS ALLEN NOT SURE IF WE CAN BUT WILL CHECK ON THAT AND LET THEM KNOW ON SUNDAY OR FAX THE PICTURES TO THEM. FAX Hiren [email or web address] REPORTED TO GALINDO.
[2023-05-04] MEDS: Sertraline 50 MG Tablet PO (20:52)
[2023-05-05] MEDS: Ensure Plus High Protein 120 ML LIQUID PO ×3 (05:18→17:35)
[2023-05-05] MEDS: Acetaminophen 500 MG Tablet 1000 MG PO ×3 (05:18→21:11)
[2023-05-05] MEDS: Miconazole Nitrate 43 GM Bottle 1 APPLIC TOPICAL ×2 (07:58→21:13)
[2023-05-05] MEDS: Juven (unflavored) Packet 1 PACKET PO ×2 (07:58→17:35)
[2023-05-05] MEDS: Pantoprazole Sodium 40 MG Tablet PO (07:59)
[2023-05-05] MEDS: Alendronate Sodium 70 MG Tablet PO (09:49)
[2023-05-05] MEDS: Lactated Ringers 1,000 ML 60 ML IV (12:45)
[2023-05-05 14:16] VITALS: BP 141/71; PULSE 86; RESP 22; TEMP 37.3; O2SAT 95
[2023-05-05] MEDS: Sertraline 50 MG Tablet PO (21:12)
--- NOTE | 2023-05-05 21:21 | NURSING ---
Pt tearful and anxious about dc plans. Updated on recent SW note. Pt thinks she will be dc'ed with no place to go. Informed pt she will remain on TCU until details of dc destination can be solidified when SW returns at the beginning of next week. Also informed pt dc will occur to a facility where pt's needs can be safely met. Emotional support and active listening provided. She verbalizes understanding and expresses decreased anxiety. Will continue to monitor.
[2023-05-06] MEDS: Ensure Plus High Protein 120 ML LIQUID PO ×3 (05:42→17:57)
[2023-05-06] MEDS: Acetaminophen 500 MG Tablet 1000 MG PO ×3 (05:43→20:47)
[2023-05-06] MEDS: Lactated Ringers 1,000 ML 60 ML IV ×2 (05:43→22:33)
[2023-05-06 08:10] LABS: Absolute Lymphocyte Count 0.78 X10^3/uL (0.83-4.51); Absolute Neutrophil Count 3.5 X10^3/uL (2.0-7.7); Basophil# 0.03 X10^3/uL; Basophil% 0.6 % (0-1); Eosinophil# 0.37 X10^3/uL; Eosinophils% 7.1 % (0-5); Hematocrit 27.1 % (37-47); Hemoglobin 8.5 g/dL (12.0-15.0); Lymphocyte # 0.78 X10^3/ul (0.83-4.51); Mean Corp Hgb Conc 31.4 g/dL (32-36); Mean Corpuscular Hgb 29.1 pg (27.0-32.0); Mean Corpuscular Volume 92.8 fL (81-99); Mean Platelet Vol. 10.2 fl (6.2-12.0); Monocyte# 0.48 X10^3/uL; Monocyte% 9.2 % (0-10); NRBC Flagged by Analyzer 0 % (0-5); Neutrophil # 3.49 X10^3/uL (2.7-7.7); Neutrophil % 67.3 % (47-70); Platelet Count 223 K/mm3 (150-450); RBC Distribution Width CV 15.9 % (11.6-14.6); RBC Distribution Width SD 54.4 fl (35.1-43.9); Red Blood Count 2.92 M/mm3 (4.2-5.4); White Blood Count 5.2 K/mm3 (4.4-11.0)
[2023-05-06 08:25] LABS: Anion Gap 4 (5-15); BUN 21 mg/dL (7-18); BUN/Creat Ratio 34.4 RATIO (10-20); Calcium,Total 8.8 mg/dL (8.5-10.1); Chloride 112 mmol/L (98-107); Creatinine, Serum 0.61 mg/dL (0.55-1.02); EST Glomerular Filtration Rate 99 mL/min (>60); Est Glom Filt Rate - Afr Amer 120 mL/min (>60); Estimated Creatinine Clearance 33.71 ml/min; Glucose 120 mg/dL (74-106); Potassium 3.9 mmol/L (3.5-5.1); Sodium Level 139 mmol/L (136-145)
[2023-05-06 08:39] VITALS: BP 128/72; PULSE 92; RESP 18; O2SAT 96
[2023-05-06] MEDS: Miconazole Nitrate 43 GM Bottle 1 APPLIC TOPICAL ×2 (08:41→20:46)
[2023-05-06] MEDS: Juven (unflavored) Packet 1 PACKET PO (08:41)
[2023-05-06] MEDS: Pantoprazole Sodium 40 MG Tablet PO (08:41)
[2023-05-06] MEDS: Ferrous Sulfate 325 MG Tablet PO (12:16)
[2023-05-06 15:44] VITALS: BP 148/76; PULSE 94; RESP 18; TEMP 36.8; O2SAT 97
--- NOTE | 2023-05-06 18:32 | NURSING ---
[facility] nurse present on unit for meeting with patient and children this afternoon. No comments from [facility] nurse or pt's family. Pt states meeting went well, I'm probably going to Ronda Pérez (Ruth)... Pt in pleasant mood, no tearfulness noted at this time.
[2023-05-06] MEDS: Sertraline 50 MG Tablet PO (20:47)
--- NOTE | 2023-05-06 21:36 | NURSING ---
Telephone order read back per Dr. Munoz to continue LR at 60ml/hr d/t decreased po intake. Plan will be to transition to SNF later this week, potentially under hospice services.
--- NOTE | 2023-05-07 01:28 | NURSING ---
Left VM for Brigette FLEMING, that [facility], that a data entry representative from [facility] was in and met w/ family. [facility] rep did not speak w/ TCU staff to update. Requested Brigette follow-up w/ [facility] tomorrow on the outcome of the meeting.
[2023-05-07] MEDS: Acetaminophen 500 MG Tablet 1000 MG PO ×3 (05:30→21:26)
[2023-05-07] MEDS: Ensure Plus High Protein 120 ML LIQUID PO ×3 (05:31→17:50)
--- NOTE | 2023-05-07 07:06 | NURSING ---
Pt c/o nausea during am care. Offered caesar zee and declines. Pt requesting a Sprite Zero and given. Pt notes pop is too cold and will not drink it at this time. This nurse informed pt no pop is at room temp. Will report to oncoming nurse. May need urine specimen for UA and C+S.
[2023-05-07 09:59] LABS: Bacteria 0 SEEN /hpf (None Seen); Mucous, Urine 0 SEEN /hpf (<or=2+); Red Blood Cells-Urine 0 SEEN /hpf (0-5); White Blood Cells 0 SEEN /hpf (0-5)
[2023-05-07 10:02] LABS: Color, Urine Yellow (Yellow); Glucose, Dipstick Normal (Normal); Ketone-Dipstick Negative (Negative); Leukocyte Esterase-Dipstick Negative /ul (Negative); Nitrite-Dipstick Negative (Negative); Occult Blood-Urine Negative /ul (Negative); Protein-Dipstick Negative (Negative); Urine Bilirubin Dipstick Negative (Negative); Urine Clarity Sl. Cloudy (Clear); Urine Urobilinogen Normal (Normal)
[2023-05-07] MEDS: Miconazole Nitrate 43 GM Bottle 1 APPLIC TOPICAL ×2 (10:03→21:27)
[2023-05-07] MEDS: Juven (unflavored) Packet 1 PACKET PO ×2 (10:04→17:47)
[2023-05-07] MEDS: Pantoprazole Sodium 40 MG Tablet PO (10:04)
[2023-05-07 10:09] LABS: Squamous Epithelial Cells - UA 0-5 SEEN /hpf (5-10)
[2023-05-07] MEDS: traMADol 50 MG Tablet PO (10:12)
--- NOTE | 2023-05-07 10:52 | CASEMGMT ---
Social Work Received voicemail from Dtr, Vicki, after meeting with [facility]. Dtr expressed appreciation for hospice conversation, however, dtr stated since hospice can be elected at any time, pt expressed wanting to continue with therapy and at [facility]. SW updated [facility] and [facility]. [facility] requesting updated clinicals on pt. SW sent via [facility]. Will await insurance outcome today. Brigette Corbin, DIRECTOR DATABASE ELECTRICAL ASSEMBLY TECHNICIAN
--- NOTE | 2023-05-07 13:42 | NURSING ---
Returned e-mail from Flor egan NP. Per her, pictures look good, send updates if anything changes before Sunday. She will do phone call with family on 05/09/23 @9282. She will call jer Cohen.
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
[2023-05-07 15:34] VITALS: BP 142/75; PULSE 94; RESP 18; TEMP 36.8; O2SAT 95
[2023-05-07] MEDS: Lactated Ringers 1,000 ML 60 ML IV (16:27)
[2023-05-07] MEDS: Sertraline 50 MG Tablet PO (21:26)
[2023-05-08] MEDS: Acetaminophen 500 MG Tablet 1000 MG PO ×3 (05:33→20:39)
[2023-05-08] MEDS: Ensure Plus High Protein 120 ML LIQUID PO ×4 (05:33→20:39)
[2023-05-08 06:03] LABS: Hematocrit 27.5 % (37-47); Hemoglobin 8.7 g/dL (12.0-15.0)
[2023-05-08] MEDS: Pantoprazole Sodium 40 MG Tablet PO (09:35)
[2023-05-08] MEDS: Juven (unflavored) Packet 1 PACKET PO ×2 (09:35→17:22)
[2023-05-08] MEDS: Miconazole Nitrate 43 GM Bottle 1 APPLIC TOPICAL ×2 (09:37→20:40)
[2023-05-08] MEDS: Lactated Ringers 1,000 ML 60 ML IV (09:42)
[2023-05-08] MEDS: Ferrous Sulfate 325 MG Tablet PO (11:14)
--- NOTE | 2023-05-08 13:24 | CASEMGMT ---
Social Work SW phoned dtr, Vicki, to update hat insurance approved with NRD 05/14. Dtr appreciative of update and would like pt to continue with therapy and consistent therapists before transferring to [facility]. LONNIE updated [facility] via [facility]. Will continue to follow. Brigette Corbin, GRIP WRAPPER PHYSICS FACULTY MEMBER
[2023-05-08 13:49] VITALS: BP 153/76; PULSE 92; RESP 16; TEMP 36.2; O2SAT 95
[2023-05-08 14:55] VITALS: BMI 27.3
[2023-05-08 15:00] VITALS: PULSE 92; RESP 16; O2SAT 95
[2023-05-08] MEDS: Sertraline 50 MG Tablet PO (20:40)
[2023-05-09] MEDS: Lactated Ringers 1,000 ML 60 ML IV ×2 (02:25→20:25)
[2023-05-09] MEDS: Acetaminophen 500 MG Tablet 1000 MG PO ×3 (05:45→21:19)
[2023-05-09] MEDS: Ensure Plus High Protein 120 ML LIQUID PO ×3 (05:51→16:52)
[2023-05-09] MEDS: Miconazole Nitrate 43 GM Bottle 1 APPLIC TOPICAL ×2 (08:46→21:19)
[2023-05-09] MEDS: Juven (unflavored) Packet 1 PACKET PO ×2 (08:46→16:53)
[2023-05-09] MEDS: Pantoprazole Sodium 40 MG Tablet PO (08:46)
--- NOTE | 2023-05-09 10:44 | NURSING ---
Phone call done with Flor GÓMEZ, for ortho follow-up. RN in room with daughter Vicki and patient. RICO discussed taking out cassandra on 3 of the lower incisions, leaving the top incision cassandra intact until Sunday. Flor would like an e-mail Sunday (05/14/23) with a photo of the top incision and if it looks good she will then give orders to remove those cassandra. She also wants xrays done and images mailed to her. She will fax all orders to TCU.
[2023-05-09] MEDS: traMADol 50 MG Tablet PO (12:01)
[2023-05-09 14:40] VITALS: BP 137/87; PULSE 98; RESP 17; TEMP 36.8; O2SAT 96
[2023-05-09] MEDS: Sertraline 50 MG Tablet PO (21:19)
[2023-05-10] MEDS: Acetaminophen 500 MG Tablet 1000 MG PO ×3 (05:11→19:58)
[2023-05-10] MEDS: Miconazole Nitrate 43 GM Bottle 1 APPLIC TOPICAL ×2 (09:10→19:59)
[2023-05-10] MEDS: Juven (unflavored) Packet 1 PACKET PO ×2 (09:10→16:44)
[2023-05-10] MEDS: Pantoprazole Sodium 40 MG Tablet PO (09:11)
--- NOTE | 2023-05-10 10:52 | NURSING ---
CONFIRMED WITH YOSI MAY ON TAKEN DEV OUT THAT WAS DOCUMENTED IN NOTES. LOWER 3 AREAS WERE REMOVED. LOOKS GOOD LEFT OPEN TO AIR. UPPER THIGH LEFT DEV IN. WILL CONTINUE TO MONITOR.RN AWARE
[2023-05-10] MEDS: Ferrous Sulfate 325 MG Tablet PO (11:55)
[2023-05-10] MEDS: Ensure Plus High Protein 120 ML LIQUID PO ×3 (11:55→19:59)
[2023-05-10 15:39] VITALS: BP 126/57; PULSE 99; RESP 16; TEMP 36.6; O2SAT 95
--- NOTE | 2023-05-10 18:21 | NURSING ---
ESTEE ETIENNE. TOOK OUT AND D/Dagoberto THE LR.
[2023-05-10] MEDS: Sertraline 50 MG Tablet PO (19:58)
[2023-05-10] MEDS: Menthol/Lanolin/Calamine/Znox 113 GM Tube 1 APPLIC TOPICAL (19:59)
[2023-05-10 20:12] VITALS: O2SAT 94
[2023-05-11] MEDS: Acetaminophen 500 MG Tablet 1000 MG PO ×3 (05:19→22:10)
[2023-05-11] MEDS: Ensure Plus High Protein 120 ML LIQUID PO ×4 (05:19→22:10)
[2023-05-11] MEDS: Pantoprazole Sodium 40 MG Tablet PO (08:22)
[2023-05-11] MEDS: Juven (unflavored) Packet 1 PACKET PO ×2 (08:22→17:51)
[2023-05-11] MEDS: Miconazole Nitrate 43 GM Bottle 1 APPLIC TOPICAL ×2 (08:25→22:13)
[2023-05-11] MEDS: Menthol/Lanolin/Calamine/Znox 113 GM Tube 1 APPLIC TOPICAL ×2 (11:41→22:13)
[2023-05-11 16:00] VITALS: BP 131/63; PULSE 70; RESP 16; O2SAT 97
[2023-05-11] MEDS: traMADol 50 MG Tablet PO (22:10)
[2023-05-11] MEDS: Sertraline 50 MG Tablet PO (22:11)
[2023-05-12] MEDS: Ensure Plus High Protein 120 ML LIQUID PO ×4 (06:08→21:10)
[2023-05-12] MEDS: Acetaminophen 500 MG Tablet 1000 MG PO ×3 (06:08→21:10)
[2023-05-12] MEDS: Alendronate Sodium 70 MG Tablet PO (06:09)
[2023-05-12 08:30] VITALS: BP 142/75; PULSE 91; RESP 18; O2SAT 96
[2023-05-12] MEDS: Juven (unflavored) Packet 1 PACKET PO ×2 (08:31→18:18)
[2023-05-12] MEDS: Miconazole Nitrate 43 GM Bottle 1 APPLIC TOPICAL ×2 (08:31→22:10)
[2023-05-12] MEDS: Pantoprazole Sodium 40 MG Tablet PO (08:32)
[2023-05-12] MEDS: Menthol/Lanolin/Calamine/Znox 113 GM Tube 1 APPLIC TOPICAL ×2 (08:39→21:12)
[2023-05-12] MEDS: Ferrous Sulfate 325 MG Tablet PO (11:27)
[2023-05-12 13:49] VITALS: TEMP 36.3
[2023-05-12] MEDS: Sertraline 50 MG Tablet PO (21:10)
[2023-05-13] MEDS: Acetaminophen 500 MG Tablet 1000 MG PO ×3 (05:48→21:19)
[2023-05-13 06:25] LABS: Absolute Lymphocyte Count 0.93 X10^3/uL (0.83-4.51); Absolute Neutrophil Count 3.4 X10^3/uL (2.0-7.7); Basophil# 0.04 X10^3/uL; Basophil% 0.8 % (0-1); Eosinophil# 0.34 X10^3/uL; Eosinophils% 6.4 % (0-5); Hematocrit 29.7 % (37-47); Hemoglobin 9.4 g/dL (12.0-15.0); Lymphocyte # 0.93 X10^3/ul (0.83-4.51); Lymphocyte % 17.4 % (19-41); Mean Corp Hgb Conc 31.6 g/dL (32-36); Mean Corpuscular Hgb 29.4 pg (27.0-32.0); Mean Corpuscular Volume 92.8 fL (81-99); Mean Platelet Vol. 9.8 fl (6.2-12.0); Monocyte# 0.61 X10^3/uL; Monocyte% 11.4 % (0-10); NRBC Flagged by Analyzer 0 % (0-5); Neutrophil # 3.36 X10^3/uL (2.7-7.7); Neutrophil % 63.1 % (47-70); Platelet Count 203 K/mm3 (150-450); RBC Distribution Width CV 16.2 % (11.6-14.6); RBC Distribution Width SD 55.8 fl (35.1-43.9); White Blood Count 5.3 K/mm3 (4.4-11.0)
[2023-05-13 06:34] LABS: Anion Gap 6 (5-15); BUN 30 mg/dL (7-18); BUN/Creat Ratio 53.1 RATIO (10-20); Calcium,Total 8.6 mg/dL (8.5-10.1); Chloride 110 mmol/L (98-107); Creatinine, Serum 0.56 mg/dL (0.55-1.02); EST Glomerular Filtration Rate 109 mL/min (>60); Est Glom Filt Rate - Afr Amer 131 mL/min (>60); Estimated Creatinine Clearance 48.05 ml/min; Glucose 101 mg/dL (74-106); Potassium 3.8 mmol/L (3.5-5.1); Sodium Level 141 mmol/L (136-145)
[2023-05-13] MEDS: Juven (unflavored) Packet 1 PACKET PO ×2 (09:01→17:38)
[2023-05-13] MEDS: Menthol/Lanolin/Calamine/Znox 113 GM Tube 1 APPLIC TOPICAL ×2 (09:01→21:18)
[2023-05-13] MEDS: Pantoprazole Sodium 40 MG Tablet PO (09:02)
[2023-05-13] MEDS: Miconazole Nitrate 43 GM Bottle 1 APPLIC TOPICAL ×2 (09:02→21:18)
[2023-05-13 09:04] VITALS: BP 135/61; PULSE 87; RESP 16; O2SAT 98
[2023-05-13] MEDS: Ensure Plus High Protein 120 ML LIQUID PO ×3 (12:31→21:19)
[2023-05-13 14:12] VITALS: TEMP 36.4
[2023-05-13] MEDS: Sertraline 50 MG Tablet PO (21:18)
[2023-05-14] MEDS: Ensure Plus High Protein 120 ML LIQUID PO ×4 (06:27→20:03)
[2023-05-14] MEDS: Acetaminophen 500 MG Tablet 1000 MG PO ×3 (06:27→20:03)
[2023-05-14] MEDS: Menthol/Lanolin/Calamine/Znox 113 GM Tube 1 APPLIC TOPICAL ×2 (08:01→20:03)
[2023-05-14] MEDS: Juven (unflavored) Packet 1 PACKET PO ×2 (08:01→17:44)
[2023-05-14] MEDS: Miconazole Nitrate 43 GM Bottle 1 APPLIC TOPICAL ×2 (08:02→20:03)
[2023-05-14] MEDS: Pantoprazole Sodium 40 MG Tablet PO (08:02)
--- NOTE | 2023-05-14 10:43 | NURSING ---
E-mailed pictures of hip to RICO Enriquez. Xray right hip ordered. Images and report will be sent to her per request.
--- NOTE | 2023-05-14 10:55 | RAD_ITS ---
STUDY: X-RAY - PELVIS AND RIGHT HIP REASON FOR EXAM: Female, 82 years old. S/P revision of total hip -- Order from Flor GÓMEZ TECHNIQUE: 3 views of the pelvis and hip. COMPARISON: None. FINDINGS: Moderate amount of fecal material is seen in the rectosigmoid colon. There are atherosclerotic vascular calcifications of the pelvic arteries. Soft tissue swelling. Normal bilateral iliac wings, sacroiliac joints and visualized sacrum. Normal bilateral superior and inferior pubic rami. Normal pubic symphysis. Normal bilateral ischial tuberosities. The patient is status post right total hip replacement. 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 Electronically Signed: Amos Bell MD at 15:00 EST ,
[2023-05-14] MEDS: Ferrous Sulfate 325 MG Tablet PO (13:14)
[2023-05-14 13:40] VITALS: BP 124/64; PULSE 98; RESP 16; TEMP 36.4; O2SAT 98
--- NOTE | 2023-05-14 16:18 | CASEMGMT ---
Addendum entered by Brigette Corbin 05/15/23 10:35: PASRR completed. Cot transport scheduled through [facility] for 1130. Original Note: Social Work Insurance issued LCD 05/16, DC 05/17. SW left detailed VM with dtrVicki, to update on DC date, explained appeal rights, and confirmed DC to [facility]. SW updated [facility] via [employer]. SW to complete PASRR and schedule transport. Plan: DC 05/17, [facility], intermediate, part B therapies Brigette Corbin, KIN ROJASW
--- NOTE | 2023-05-14 18:57 | NURSING ---
Mina ordered that cassandra could be removed from hip at this time. 28 cassandra removed from right hip this evening and patient tolerated well. No redness, drainage or pain noted. Steri-strips placed to incision.
[2023-05-14] MEDS: Sertraline 50 MG Tablet PO (20:02)
[2023-05-15] MEDS: Ensure Plus High Protein 120 ML LIQUID PO ×4 (05:22→20:25)
[2023-05-15] MEDS: Acetaminophen 500 MG Tablet 1000 MG PO ×3 (05:22→20:25)
[2023-05-15 06:04] LABS: Hematocrit 30.7 % (37-47); Hemoglobin 9.9 g/dL (12.0-15.0)
[2023-05-15] MEDS: Menthol/Lanolin/Calamine/Znox 113 GM Tube 1 APPLIC TOPICAL ×2 (08:24→20:28)
[2023-05-15] MEDS: Juven (unflavored) Packet 1 PACKET PO ×2 (08:24→16:51)
[2023-05-15] MEDS: Pantoprazole Sodium 40 MG Tablet PO (08:24)
[2023-05-15] MEDS: Miconazole Nitrate 43 GM Bottle 1 APPLIC TOPICAL ×2 (08:25→20:27)
[2023-05-15 10:00] VITALS: PULSE 87; RESP 18; O2SAT 97
[2023-05-15 16:00] VITALS: BP 153/68; PULSE 89; RESP 16; TEMP 36.7; O2SAT 96
--- NOTE | 2023-05-15 19:56 | PCM.DC.SUM ---
Providers Date of Admission: 04/21/23 Primary Care Physician: RICO Tristan Consultations 05/04/23 12:44 Consult: Hospice / Palliative Care Routine Consulting Provider: [facility] Reason for Consult: HOSPICE - FTT, malnutrition, delirium EMERGENT Consult: No MD Notified: Yes Date Notified: 05/03/23 Time Notified: 12:44 Method of Notification: Text Reason For Visit: HIP REVISION Diagnosis Discharge Diagnosis (1) Debility: Status: Acute Code(s): R53.81 - Other malaise (2) Subcapital fracture of neck of right femur: Status: Acute Code(s): S72.011A - Unspecified intracapsular fracture of right femur, initial encounter for closed fracture (3) Status post open reduction and internal fixation (ORIF) of fracture: Status: Acute Code(s): Z98.890 - Other specified postprocedural states; Z87.81 - Personal history of (healed) traumatic fracture (4) Delirium: Status: Acute Code(s): R41.0 - Disorientation, unspecified (5) Acute blood loss anemia: Status: Acute Code(s): D62 - Acute posthemorrhagic anemia (6) Tachycardia: Status: Acute Code(s): R00.0 - Tachycardia, unspecified (7) Dehydration: Status: Acute Code(s): E86.0 - Dehydration (8) Recent urinary tract infection: Status: Acute Code(s): Z87.440 - Personal history of urinary (tract) infections (9) 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: Status: Chronic Code(s): Z98.890 - Other specified postprocedural states; Z87.81 - Personal history of (healed) traumatic fracture (10) Visual hallucinations: Status: Acute Code(s): R44.1 - Visual hallucinations (11) Cognitive dysfunction: Status: Acute Code(s): F09 - Unspecified mental disorder due to known physiological condition Medications at Discharge Home Medications acetaminophen 500 mg tablet 1,000 mg (2 x 500 mg) PO Q8 #0 tabs 05/15/23 alendronate 70 mg tablet 70 mg PO Q7D@0700 #0 tabs 05/15/23 arginine 7 gram-glutam 7 gram-CaHMB 1.5 vqpn-bxcmv-oi-min oral pwd pkt (Demarcus (with collagen)) 1 packet PO BIDCM #0 ea 05/15/23 ferrous sulfate 325 mg (65 mg iron) tablet (FeroSul) 325 mg PO QODAY@1200 #0 tabs 05/15/23 food supplemt, lactose-reduced 0.08 gram-1.5 kcal/mL oral liquid (Ensure Plus High Protein) 120 ml PO 4X/DAY #0 mL 05/15/23 menthol 0.44 %-zinc oxide 20.6 % topical ointment (Calmoseptine) 1 applic topical BID #0 grams 05/15/23 miconazole nitrate 2 % topical powder (Desenex) 1 applic topical BID #0 grams 05/15/23 pantoprazole 40 mg tablet,delayed release 40 mg PO DAILY #0 tabs 05/15/23 sertraline 50 mg tablet 50 mg PO DAILY@2000 #0 tabs 05/15/23 tramadol 50 mg tablet 50 mg PO Q6H PRN PRN Pain Score 4-10 3 days #12 tabs 05/15/23 Hospital Course Operations None Procedures None Summary of Care Provided Minutes Spent on Discharge: 35 Hospital Course: 82 year old female with below past medical history 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 Balderas 04/16/2023, admitted to TCU with debility, here for rehabilitation, strengthening, prior to disposition determination. Discharge 05/17/2023, [facility], intermediate, part B therapies. Physical Exam Const alert General Appearance: cooperative HEENT normocephalic Eyes PERRL and EOMs intact bilaterally Neck supple, no JVD and no carotid bruits Resp normal respiratory effort, normal air movement and clear to auscultation bilaterally Cardio regular rate and regular rhythm GI normal to inspection, nondistended, normoactive bowel sounds, non-tender and non-distended Extremity normal capillary refill General Extremity: Negative for edema Skin no rashes or lesions noted General Skin Exam: no breakdown Psych affect normal Appearance: appropriate Medical Records Data Medical Nutrition Assessment Dietitian: Malnutrition Criteria Met Start: 05/02/23 10:57 Freq: Status: Active Protocol: Document 05/02/23 10:57 SLA (Rec: 05/02/23 10:57 SLA Desktop) Nutrition Malnutrition Evidence of Malnutrition Exists Yes Malnutrition (severe): Acute Illness/Injury Evidenced By Suboptimal Energy Intake ( Severe),Weight Loss (Severe) Intake Problem Inadequate Oral Intake Etiology related to decreased ability to consume sufficient energy to meet estimated nutrient needs Signs/Symptoms as evidenced by report of decreased appetite and oral intakes following surgery as < 50% at most meals x > 1 wk since and having 10.9% unintended wt loss since adm Status Active Problem Increased Nutrient Needs (specify) Etiology (protein) related to wound healing Signs/Symptoms as evidenced by large surgical incisions on right hip and right knee. Status Active Problem Recommendation Dietitian Recommendations/Changes Continue with Regular diet at this time for liberalization d /t signs and symptoms of malnutrition. Continue Ensure Plus High Protein 120mL 4x/day with medpass Continue Demarcus BID w/ medpass to aid in wound healing as well as increase oral intakes. May need to consider alternate nutrition support if po intake fails to improve, if in accordance w/ res and family wishes. Weight / BMI Weight Weight: 67.676 kg Body Mass Index (BMI) 27.3 ABG / Lab / Microbiology Data 05/15/23 05:14 05/13/23 05:18 Laboratory: Laboratory Results - last 24 hr 05/15/23 05:14: Hgb 9.9 L, Hct 30.7 L Microbiology: Microbiology 05/15/23 05:24 Nasal Secretion SARS-CoV-2 Antigen (Rapid) - Final 05/10/23 05:13 Nasal Secretion SARS-CoV-2 Antigen (Rapid) - Final 05/07/23 09:45 Urine Catheter - Catheter Urine Culture - Final Presumptive E. coli 05/07/23 06:55 Nasal Secretion SARS-CoV-2 Antigen (Rapid) - Final 05/04/23 05:21 Nasal Secretion SARS-CoV-2 Antigen (Rapid) - Final 05/01/23 05:29 Nasal Secretion SARS-CoV-2 Antigen (Rapid) - Final 04/25/23 11:50 Nasal Secretion SARS-CoV-2 Antigen (Rapid) - Final 04/25/23 09:50 Stool Stool Occult Blood (DORIE) - Final Occult Blood Positive D/C Instructions Discharge Diet: No restrictions Discharge Activity: Return to Normal Activity, May Shower and Use Walker Weight Bearing Status: Weight bearing as tolerated Call your doctor if you observe: Fever of 101 or Higher, Inability to urinate, Inability to have a bowel movement, Shortness of breath, Dizziness, Fainting spells, Swelling in the ankles, Chest pain and Uncontrolled pain Additional Instructions: Discharge 05/17/2023, [facility], intermediate, part B therapies. Please Follow Up With: Elliott Balderas (patient will see RICO Enriquez) Meaningful Use Info Meaningful Use Diagnoses (Choose all that apply): None applicable Discharge Plan Admission Admit Date/Time: 04/21/23 13:29 Primary Reason for Your Visit: Debility. Attending Provider: Anderson Munoz Chi Primary Care Provider: Benja Fall Consulting Providers: Quang Keita; Mary Jacobs; Rohini Andrade; Yuko Toledo SCREEN PRINTING EQUIPMENT SETTER Instructions Additional Instructions / Restrictions: Discharge 05/17/2023, [facility], intermediate, part B therapies. Discharge Orders/Prescriptions Prescriptions: New acetaminophen 500 mg Tablet 1,000 mg PO Q8 Qty: 0 0RF alendronate 70 mg Tablet 70 mg PO Q7D@0700 Qty: 0 0RF Ensure Plus High Protein 0.08 gram-1.5 kcal/mL Liquid 120 ml PO 4X/DAY Qty: 0 0RF ferrous sulfate [FeroSul] 325 mg (65 mg iron) Tablet 325 mg PO QODAY@1200 Qty: 0 0RF Demarcus (with collagen) 7-7-1.5 gram Powder In Packet 1 packet PO BIDCM Qty: 0 0RF menthol-zinc oxide [Calmoseptine] 0.44-20.6 % Ointment 1 applic topical BID Qty: 0 0RF Protocol: *Topical Application Instructions APPLICATION INSTRUCTIONS: Apply to buttock miconazole nitrate [Desenex] 2 % Powder 1 applic topical BID Qty: 0 0RF Protocol: *Topical Application Instructions APPLICATION INSTRUCTIONS: apply to groin and abdominal folds tramadol 50 mg Tablet 50 mg PO Q6H PRN PRN (Reason: Pain Score 4-10) 3 Days Qty: 12 0RF pantoprazole 40 mg Tablet,Delayed Release (Dr/Ec) 40 mg PO DAILY Qty: 0 0RF sertraline 50 mg Tablet 50 mg PO DAILY@2000 Qty: 0 0RF Referrals / Follow Up: Benja Fall PA [Primary Care Provider] - Disposition Disposition (needs filled in before D/C Order can be placed): NonSkilled NH/Intermed Care
--- NOTE | 2023-05-15 20:03 | PCM.TXEXTCAR ---
Diet Diet Order/Speech Therapy: 04/21/23 14:00 Diet: Regular - General Is pt able to select menu?: Yes Routine Orders/Code Status Code Status: DNRCC-A (With intubation.) Wound(s) right hip: Wound Type: Surgical Incision Dressing Change: Dry Sterile Dressing right knee: Wound Type: Surgical Incision Dressing Change: Dry Sterile Dressing LT INNER THIGH: Wound Type: old blister RT POST UPPER THIGH: Wound Type: Surgical Incision Dressing Change: Dry Sterile Dressing Therapies Weight Bearing: Weight bearing as tolerated Extremity Affected:: Bilateral Lower Physical Therapy: Eval and Treat Occupational Therapy: Eval and Treat Problem/Diagnosis (1) Debility: Status: Acute Code(s): R53.81 - Other malaise (2) Subcapital fracture of neck of right femur: Status: Acute Code(s): S72.011A - Unspecified intracapsular fracture of right femur, initial encounter for closed fracture (3) Status post open reduction and internal fixation (ORIF) of fracture: Status: Acute Code(s): Z98.890 - Other specified postprocedural states; Z87.81 - Personal history of (healed) traumatic fracture Comment: 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 (10) Visual hallucinations: Status: Acute Code(s): R44.1 - Visual hallucinations Comment: This is not new for her and she had visual hallucinations prior to ever arriving at the transitional care unit. She cannot really tell me how long this has been going on. (11) Cognitive dysfunction: Status: Acute Code(s): F09 - Unspecified mental disorder due to known physiological condition Comment: I suspect she has underlying dementia. Allergies/Procedures Done in Hospital Allergies oxycodone Allergy (Severe, Verified 04/21/23 13:45) ALTERED MENTAL STATUS Sulfa (Sulfonamide Antibiotics) Allergy (Unknown, Verified 04/21/23 13:45) Hives hydrocodone Allergy (Verified 04/21/23 13:45) Other ALTERED MENTAL STATUS Procedures: None Type of Care/Length of Stay Estimated LOS: More Than 30 Days Type of Care Needed: Intermediate Rehab Potential: Poor Prognosis: Poor Additional Orders/Day of Discharge Additional Orders: part B therapies Day of Discharge: 05/17/23 Dietary and Speech Recommendations Dietitian Recommendations/Changes: Continue with Regular diet at this time for liberalization d/t signs and symptoms of malnutrition. Continue Ensure Plus High Protein 120mL 4x/day with medpass Continue Demarcus BID w/ medpass to aid in wound healing as well as increase oral intakes. May need to consider alternate nutrition support if po intake fails to improve, if in accordance w/ res and family wishes. Follow Up Care Please Follow Up With: Elliott Balderas (patient will see RICO Enriquez) Discharge Plan Admission Admit Date/Time: 04/21/23 13:29 Primary Reason for Your Visit: Debility. Attending Provider: Anderson Munoz Chi Primary Care Provider: Benja Fall Consulting Providers: Quang Keita; Mary Jacobs; Rohini Andrade; Yuko Toledo [employer] W[employer]DL[employer] CONTROL OPERATOR Instructions Additional Instructions / Restrictions: Discharge 05/17/2023, [place], intermediate, part B therapies. Discharge Orders/Prescriptions Prescriptions: New acetaminophen 500 mg Tablet 1,000 mg PO Q8 Qty: 0 0RF alendronate 70 mg Tablet 70 mg PO Q7D@0700 Qty: 0 0RF Ensure Plus High Protein 0.08 gram-1.5 kcal/mL Liquid 120 ml PO 4X/DAY Qty: 0 0RF ferrous sulfate [FeroSul] 325 mg (65 mg iron) Tablet 325 mg PO QODAY@1200 Qty: 0 0RF Demarcus (with collagen) 7-7-1.5 gram Powder In Packet 1 packet PO BIDCM Qty: 0 0RF menthol-zinc oxide [Calmoseptine] 0.44-20.6 % Ointment 1 applic topical BID Qty: 0 0RF Protocol: *Topical Application Instructions APPLICATION INSTRUCTIONS: Apply to buttock miconazole nitrate [Desenex] 2 % Powder 1 applic topical BID Qty: 0 0RF Protocol: *Topical Application Instructions APPLICATION INSTRUCTIONS: apply to groin and abdominal folds tramadol 50 mg Tablet 50 mg PO Q6H PRN PRN (Reason: Pain Score 4-10) 3 Days Qty: 12 0RF pantoprazole 40 mg Tablet,Delayed Release (Dr/Ec) 40 mg PO DAILY Qty: 0 0RF sertraline 50 mg Tablet 50 mg PO DAILY@2000 Qty: 0 0RF Referrals / Follow Up: Benja Fall PA [Primary Care Provider] - Disposition Disposition (needs filled in before D/C Order can be placed): NonSkilled NH/Intermed Care
[2023-05-15] MEDS: Sertraline 50 MG Tablet PO (20:25)
[2023-05-16] MEDS: Ensure Plus High Protein 120 ML LIQUID PO ×4 (05:20→20:49)
[2023-05-16] MEDS: Acetaminophen 500 MG Tablet 1000 MG PO ×3 (05:20→20:49)
[2023-05-16] MEDS: Pantoprazole Sodium 40 MG Tablet PO (07:50)
[2023-05-16] MEDS: Menthol/Lanolin/Calamine/Znox 113 GM Tube 1 APPLIC TOPICAL ×2 (07:52→20:50)
[2023-05-16] MEDS: Miconazole Nitrate 43 GM Bottle 1 APPLIC TOPICAL ×2 (07:53→20:50)
[2023-05-16 11:30] VITALS: BMI 26.6
[2023-05-16] MEDS: Ferrous Sulfate 325 MG Tablet PO (13:20)
[2023-05-16 14:56] VITALS: BP 128/67; PULSE 91; RESP 18; TEMP 36.6; O2SAT 97
[2023-05-16] MEDS: Juven (unflavored) Packet 1 PACKET PO (17:40)
[2023-05-16] MEDS: Sertraline 50 MG Tablet PO (20:49)
[2023-05-17] MEDS: Ensure Plus High Protein 120 ML LIQUID PO (05:16)
[2023-05-17] MEDS: Acetaminophen 500 MG Tablet 1000 MG PO (05:16)
[2023-05-17 05:39] LABS: Hematocrit 31.9 % (37-47); Hemoglobin 10.1 g/dL (12.0-15.0)
[2023-05-17] MEDS: Menthol/Lanolin/Calamine/Znox 113 GM Tube 1 APPLIC TOPICAL (08:34)
[2023-05-17] MEDS: Pantoprazole Sodium 40 MG Tablet PO (08:34)
[2023-05-17] MEDS: Miconazole Nitrate 43 GM Bottle 1 APPLIC TOPICAL (08:35)
[2023-05-17 10:48] VITALS: BP 135/70; PULSE 82; RESP 20; TEMP 36.8; O2SAT 96
[2023-05-17 13:02] VITALS: BP 135/70; PULSE 82; RESP 20; TEMP 36.8; O2SAT 96
--- NOTE | 2023-05-17 13:21 | CASEMGMT ---
Social Work BIMS (03/14) and PHQ-9 () completed for MDS assessment. Brigette Corbin MSW [employer] FEEDER CATCHER
== END 2023-05-17 11:50 | disposition intermediate care facility (04) | DRG 560 ==
PROVIDERS: Internal Medicine; Admitting Provider Family Medicine Geriatric Medicine; PCP Physician Assistant; Visit Provider Family Medicine Geriatric Medicine
DX: M80.051D Age-related osteoporosis with current pathological fracture, right femur, subsequent encounter for fracture with routine healing (principal); N39.0 Urinary tract infection, site not specified; E86.0 Dehydration; M17.11 Unilateral primary osteoarthritis, right knee; M81.0 Age-related osteoporosis without current pathological fracture; Z79.83 Long term (current) use of bisphosphonates; X58.XXXD Exposure to other specified factors, subsequent encounter
CPT/HCPCS: 36415; 73502; 80048; 81001; 82040; 82274; 82607; 83735; 83970; 84100; 84443; 85014; 85018; 85025; 85027; 87086; 87088; 87186; 87811; 92507; 92523; 97110; 97112; 97129; 97130; 97162; 97166; 97530; 97535; 97802; J7120; A4216; J7799